=== PATIENT | male | born 1985 | race Caucasian/White ===

== ENCOUNTER 2020-09-01 09:47 | Outpatient (CLI) | payer MEDICAID, SELFPAY ==
--- NOTE | 2020-09-01 09:55 | CT_ITS ---
WS: [id number] CT ABDOMEN AND PELVIS WITH CONTRAST HISTORY: LUQ PAIN TECHNIQUE: Imaging performed of the abdomen and pelvis with IV contrast. Single phase imaging of the abdomen. Coronal and sagittal reformats are submitted. All CT scans at [facility] use at least one of these dose optimization techniques: automated exposure control; mA and/or kV adjustment per patient size (includes targeted exams where dose is matched to clinical indication); or iterativ e reconstruction. IV CONTRAST: Omnipaque 300; 95 mL IV. Oral contrast: Yes. DLP: 1163.71 mGycm COMPARISON: None available. Lower thorax: Lung bases are clear. Heart is normal size. Small hiatal hernia. Liver/biliary system: Normal size with no intrahepatic dilatation. Gallbladder: Normal. No gallstones or wall thickening. No pericholecystic fluid. Pancreas: Normal. Spleen: Spleen is top normal size at 12.9 cm in length. No mass or abnormal enhancement. Adrenal glands: Normal. Right kidney: There are a few hypodensities within the kidney which too small to characterize. No jennifer cification or obstruction. Left kidney: Low-attenuation mass measures 2.6 cm in the lower pole is probably a cyst. No solid mass or obstruction. Aorta: Normal. Lymphadenopathy: There are several small, subcentimeter lymph nodes in the upper abdomen. The largest lymph node near the [place] hepatis measures 10 mm. Free fluid: None. GI tract: Normal appendix. No obstruction of the GI tract. Abdominal wall: Unremarkable abdominal wall. No hernia. Pelvis: Normal. Bones: Unremarkable. CT/CT abdomen pelvis w con* [id number] IMPRESSION: 1. Spleen measures 12.9 cm in length which is top normal size. 2. Central upper abdominal lymph nodes with the largest measuring 10 mm. At th is time no significant adenopathy. 3. Bilateral renal cysts.
[2020-09-01] MEDS: iohexol 300 mg/mL 100 mL Btl IV (11:23)
[2020-09-01] MEDS: iohexol 300 mg/mL 50 mL Btl PO (11:24)
== END 2020-09-01 09:48 | disposition home or self-care (01) ==
LOC: RADWPI 09:52
PROVIDERS: PCP Family Medicine; Visit Provider Family Medicine
DX: R10.12 Left upper quadrant pain (principal); Q61.02 Congenital multiple renal cysts
CPT/HCPCS: 74177; Q9967

== ENCOUNTER 2024-05-21 07:43 | Inpatient (IN) | payer BC, MEDICAID, SELFPAY ==
[2024-05-21] VITALS (16 sets, daily range): BP systolic 141–174; BP diastolic 67–116; PULSE 76–100; RESP 16–25; TEMP 36.4–38; O2SAT 92–100; BMI 26.2
--- NOTE | 2024-05-21 07:58 | CT_ITS ---
WS: [id number] CT ABDOMEN AND PELVIS WITH CONTRAST HISTORY: abd pain, intermittent diarrhea. TECHNIQUE: Imaging performed of the abdomen and pelvis with IV contrast. Single phase imaging of the abdomen. Coronal and sagittal reformats are submitted. All CT scans at [facility] use at [facility] [facility] one of these dose optimization techniques: automated exposure control; mA and/or kV adjustment per patient size (includes targeted exams where dose is matched to clinical indication); or iterative re construction. IV CONTRAST: Omnipaque 350; 100 mL IV. Oral contrast: No DLP: 731.96 mGy.cm COMPARISON: 09/01/2020 Lower thorax: Lung bases are clear. Heart is normal size. Small hiatal hernia. Liver/biliary system: Liver is top normal size with mild fatty sparing along the falciform ligament. No bile duct dilatation. Gallbladder: Normal. No gallstones or wall thickening. No pericholecystic fluid. Pancreas: Normal size pancreas and pancreatic duct. No adjacent inflammation. Spleen: Spleen is top normal size at 13.6 cm in length. Adrenal glands: Normal RIGHT adrenal gland. Very slight thickening of the LEFT adrenal gland. Right kidney: No obstruction. Scattered cortical hypodensities unchanged in size since 2020. Left kidney: Normal size with cortical hypodensities. Largest low-attenuation mass in the lower pole measures 1.6 cm, similar to the prior study from 2020. Probably representing a complex cyst. Aorta: Normal size aorta. Mesenteric arteries are not well evaluated for thrombus or occlusion as the contrast bolus was interrupted. Lymphadenopathy: Small retroperitoneal lymph nodes. No lymphadenopathy. Free fluid: None. GI tract: Stomach is not distended. No small bowel obstruction. Normal appendix. Diffuse moderate con stipation. Developing diverticular abscess in the central pelvis measures 3.3 x 4.8 cm and extends ov er a length of 5.3 cm. Perforation tract site is noted extending through the wall of the sigmoid colo n. This is developing abscess but is not liquefied or encased by a wall at this time. There additiona l diverticula in the sigmoid colon. Marked narrowing of the sigmoid lumen with submucosal edema. Abdominal wall: Fat containing umbilical hernia. Pelvis: No free fluid or adenopathy within the pelvis. Bones: Unremarkable. CT/CT abdomen pelvis w con* [id number] IMPRESSION: 1. Sigmoid perforation with developing diverticular abscess. There is no well- formed abscess at this time. No liquefaction or wall containment. Phlegmonous c ollection measures 3.3 x 4.8 x 5.3 cm. 2. Marked narrowing of the sigmoid lumen with additional scattered diverticula . 3. Normal appendix. Notified Spencer Soriano MD at 05/21/2024 8:41 AM.
--- NOTE | 2024-05-21 07:59 | ED_ITS ---
HPI - Abdominal Pain 2 General: Chief Complaint: Abdominal Pain Stated Complaint: Pain in lower right flank, cnnt eat or drink Time Seen by Provider: 05/21/24 07:48 Source: patient Mode of arrival: ambulatory Limitations: no limitations History of Present Illness: 38-year-old male states that he has been having abdominal pain he is also been having some nausea vomiting has had some slight diarrhea difficulty urinating. He states had decreased appetite as well. States has been going on for 4 to 5 days getting much worse since this morning states he is having worsening pain in his lower abdomen it has been tender to touch as well. Denies any fevers. Associated Symptoms: Reports diarrhea, nausea and vomiting; Denies chills and fever(s) Related Data Allergies Allergy/AdvReac Type Severity Reaction Status Date / Time No Known Allergies Allergy Verified 05/21/24 08:00 Review of Systems 2 Const: Denies: fever(s), chills, body aches or change in appetite ENMT: Denies: throat pain or dental pain Card: Denies: chest pain Resp: Denies: dyspnea GI: Reports: abdominal pain, nausea, vomiting and diarrhea : Reports: difficulty urinating Musc: Denies: neck pain or back pain Skin/Breast: Denies: rash Neuro: Denies: headache(s) Physical Exam 2 Const: COMMON NORMALS: no acute distress, patient oriented x3 and healthy appearing HENMT: COMMON NORMALS: normocephalic and atraumatic HEAD & SCALP: n ormocephalic and atraumatic Neck/C-Spine: COMMON NORMALS: full ROM and supple Chest: COMMONS NORMALS: normal inspection of the chest Resp: COMMON NORMALS: normal respiratory effort, No retractions, No use of accessory muscles and clear to auscultation bilaterally AUSCULTATION: clear to auscultation bilaterally Cardio: COMMON NORMALS: regular rate, regular rhythm and No murmurs present (Cardio) RATE: regular rate RHYTHM: regular rhythm GI: COMMON NORMALS: Normal to inspection, nondistended, normoactive bowel sounds present, Soft to palpation and no masses PALPATION: Yes Soft to palpation and Yes Tenderness to palpation present (GI) Details: RLQ Extremity: COMMON NORMALS: normal to inspection and full ROM Neuro: COMMON NORMALS: patient oriented x3, moves all extremities and no focal motor deficits Psych: COMMON NORMALS: mental status grossly normal, Normal thought process present and cooperative THOUGHT PROCESS: Normal thought process present Skin: COMMON NORMALS: no rashes or lesions noted and no wounds GENERAL SKIN EXAM: no rashes or lesions noted Course 2 Vital Signs: Vital signs: Vital Signs Temperature 98.1 F 05/21/24 07:51 Pulse Rate 88 05/21/24 08:04 Respiratory Rate 16 05/21/24 08:43 Blood Pressure 159/102 05/21/24 08:04 Pulse Oximetry 98 05/21/24 08:04 Oxygen Delivery Me thod Room Air 05/21/24 08:04 MDM - Abdominal Pain Medical Decision Making Patient presents with abdominal pain he does have [place] diverticulitis with a phlegmon of spoke to Dr. Pearce along with hospitalist will admit on IV antibiotics at this point his lactate here is normal blood pressures been normal. Medical Records I reviewed the patient's medical records. Lab Data I reviewed the patient's lab results. 05/21/24 07:55 05/21/24 07:55 Labs/Radiology: Radiology Impressions Abdomen/Pelvis CT 05/21/24 07:58 IMPRESSION: 1. Sigmoid perforation with developing diverticular abscess. There is no well- formed abscess at this time. No liquefaction or wall containment. Phlegmonous collection measures 3.3 x 4.8 x 5.3 cm. 2. Marked narrowing of the sigmoid lumen with additional scattered diverticula. 3. Normal appendix. Notified Spencer Soriano MD at 05/21/2024 8:41 AM. Laboratory Results WBC 22.32 10^3/uL (3.29-11.43) H 05/21/24 07:55 RBC 4.56 10^6/uL (3.85-5.65) 05/21/24 07:55 Hgb 14.60 g/dL (11.27-16.99) 05/21/24 07:55 Hct 40.4 % (37-53) 05/21/24 07:55 MCV 88.6 fl (82-101) 05/21/24 07:55 MCH 32.0 pg (27-33) 05/21/24 07:55 MCHC 36.1 g/dL (30-55) 05/21/24 07:55 RDW 11.9 % (12.1-15.1) L 05/21/24 07:55 Plt Count 309 10^3/cmm (157-399) 05/21/24 07:55 MPV 10.1 fL (7.4-10.4) 05/21/24 07:55 Neut % (Auto) 84.2 % 05/21/24 07:55 Lymph % (Auto) 7.1 % 05/21/24 07:55 [place] % (Auto) 7.8 % 05/21/24 07:55 Eos % (Auto) 0.2 % 05/21/24 07:55 Baso % (Auto) 0.2 % 05/21/24 07:55 Neut # (Auto) 18.80 10^3/uL (1.8-7.7) H 05/21/24 07:55 Lymph # (Auto) 1.6 10^3/uL (0.8-4.8) 05/21/24 07:55 [place] # (Auto) 1.7 10^3/uL (0.2-0.9) H 05/21/24 07:55 Eos # (Auto) 0.1 10^3/uL (0.0-0.8) 05/21/24 07:55 Baso # (Auto) 0.1 10^3/uL (0.0-0.1) 05/21/24 07:55 Nucleated RBC % (auto) 0 % 05/21/24 07:55 Nucleated RBCs # 0.0 /100WBC 05/21/24 07:55 Sodium 137 mmol/L (136-145) 05/21/24 07:55 Potassium 3.6 mmol/L (3.5-5.1) 05/21/24 07:55 Chloride 100 mmol/L (98-107) 05/21/24 07:55 Carbon Dioxide 24 mmol/L (22-29) 05/21/24 07:55 Anion Gap 16.6 (5-19) 05/21/24 07:55 BUN 10 mg/dL (6-20) 05/21/24 07:55 Creatinine 0.7 mg/dL (0.7-1.2) 05/21/24 07:55 GFR Calculation 125.5 mL/min (90-130) 05/21/24 07:55 Glucose 112 mg/dL (65-115) 05/21/24 07:55 Calculated Osmolality 284 mOsm/kg (285-295) L 05/21/24 07:55 Lactic Acid 1.7 mmol/L (0.5-2.2) 05/21/24 07:55 Calcium 8.4 mg/dL (8.5-10.5) L 05/21/24 07:55 Total Bilirubin 1.2 mg/dL (0.15-1.2) 05/21/24 07:55 AST 21 U/L (0-40) 05/21/24 07:55 ALT 40 U/L (0-41) 05/21/24 07:55 Alkaline Phosphatase 70 U/L (40-130) 05/21/24 07:55 Total Protein 7.6 g/dL (6.6-8.7) 05/21/24 07:55 Albumin 4.1 g/dL (3.5-5.2) 05/21/24 07:55 Globulin 3.5 g/dL (1.3-4.6) 05/21/24 07:55 Lipase 16 U/L (13-60) 05/21/24 07:55 Urine Color Yellow (Yellow) 05/21/24 08:14 Urine Appearance Cloudy (CLEAR) A 05/21/24 08:14 Urine pH 8.0 (5-7) A 05/21/24 08:14 Ur Specific [place] 1.019 (1.005-1.030) 05/21/24 08:14 Urine Protein Negative (Negative) 05/21/24 08:14 Urine Glucose (UA) Negative (Normal) 05/21/24 08:14 Urine Ketones 3+ (Negative) H 05/21/24 08:14 Urine Blood Negative (Negative) 05/21/24 08:14 Urine Nitrate Negative (Negative) 05/21/24 08:14 Urine Bilirubin Negative (Negative) 05/21/24 08:14 Urine Urobilinogen 1.0 mg/dL (Negative) 05/21/24 08:14 Ur Leukocyte Esterase Trace (Negative) A 05/21/24 08:14 Urine RBC 0-2 /hpf (0-2) 05/21/24 08:14 Urine WBC 0-5 /hpf (0-5) 05/21/24 08:14 Ur Squamous Epith Cells 0-5 /hpf (0-5) 05/21/24 08:14 Amorphous Sediment Not Reportable 05/21/24 08:14 Urine Bacteria None seen /hpf (NONE) 05/21/24 08:14 Hyaline Casts 0.40 /lpf 05/21/24 08:14 All radiology interpretation(s) finalized by discharge Discharge Plan Discharge Patient Disposition: Admitted As Inpatient Clinical Impression: Diverticulitis Condition: Stable Referrals: Destiny Young MD [Primary Care Provider] - Coding Level of Care Code ED Barrel Inspector for Elba Lowe
[2024-05-21] MEDS: ondansetron 2 mg/ML SDV 2 mL 4 MG IVP (08:03)
[2024-05-21] MEDS: morphine 4 mg/mL SDV 1 mL IVP (08:03)
[2024-05-21 08:13] LABS: Basophils # 0.1 10^3/uL (0.0-0.1); Basophils % 0.2 %; Eosinophils # 0.1 10^3/uL (0.0-0.8); Eosinophils % 0.2 %; Hematocrit 40.4 % (37-53); Lymphocytes # 1.6 10^3/uL (0.8-4.8); Lymphocytes % 7.1 %; Mean Corpuscular HGB Conc 36.1 g/dL (30-55); Mean Corpuscular Volume 88.6 fl (82-101); Mean Platelet Volume 10.1 fL (7.4-10.4); Monocytes # 1.7 10^3/uL (0.2-0.9); Monocytes % 7.8 %; Neutrophils % 84.2 %; Nucleated Red Blood Cells % 0 %; Platelet Count 309 10^3/cmm (157-399); Red Blood Count 4.56 10^6/uL (3.85-5.65); Red Cell Distribution Width 11.9 % (12.1-15.1); White Blood Count 22.32 10^3/uL (3.29-11.43)
[2024-05-21] MEDS: iohexol 350 mg/mL 500 mL Btl (per mL) IV (08:16)
[2024-05-21 08:20] LABS: Bilirubin Urine Negative (Negative); Blood Urine Negative (Negative); Glucose Urine UA Negative (Normal); Ketones Urine 3+ (Negative); Leukocyte Esterase Urine Trace (Negative); Nitrate Urine Negative (Negative); Protein Urine Negative (Negative); Specific Gravity, Urine 1.019 (1.005-1.030); Urine Appearance Cloudy (CLEAR); Urine Color Yellow (Yellow)
[2024-05-21 08:23] LABS: Add Urine Microscopic? YES; Bacteria Urine None Seen /hpf; RBC Urine 0-2 /hpf (0-2); Squamous Epithelial Cell Urine 0-5 /hpf (0-5); WBC Urine 0-5 /hpf (0-5)
[2024-05-21 08:36] LABS: Alanine Aminotransferase 40 U/L (0-41); Albumin Level 4.1 g/dL (3.5-5.2); Alkaline Phosphatase 70 U/L (40-130); Anion Gap 16.6 (5-19); Aspartate Amino Transferase 21 U/L (0-40); Blood Urea Nitrogen 10 mg/dL (6-20); Calcium 8.4 mg/dL (8.5-10.5); Carbon Dioxide 24 mmol/L (22-29); Chloride 100 mmol/L (98-107); Creatinine Clr Calc Pharmacy 163.4781; Globulin 3.5 g/dL (1.3-4.6); Glomerular Filtration Rate 125.5 mL/min (90-130); Glucose 112 mg/dL (65-115); Lipase 16 U/L (13-60); Osmolality Calculated 284 mOsm/kg (285-295); Potassium 3.6 mmol/L (3.5-5.1); Sodium 137 mmol/L (136-145); Total Bilirubin 1.2 mg/dL (0.15-1.2); Total Protein 7.6 g/dL (6.6-8.7)
[2024-05-21] MEDS: sodium chloride 0.9% 1,000 ML 999 ML IV ×2 (08:42→09:04)
[2024-05-21] MEDS: HYDROmorphone 1 mg/mL INJ 1 mL IVP (08:43)
[2024-05-21 08:46] LABS: Lactic Sepsis W/Reflex 1.7 mmol/L (0.5-2.2)
[2024-05-21] MEDS: piperacillin-tazobactam 3.375 GM in sodium chloride 0.9% (plus) 50 ML IV ×2 (09:03→16:56)
--- NOTE | 2024-05-21 09:46 | PC.PHAR ---
Pt also states he uses THC in a syringe. A THC syringe is a plastic or glass device designed to hold THC oil or a combination of THC and CBD oil. It features a chamber filled with THC distillate and a plunger for dosing it out.
--- NOTE | 2024-05-21 09:50 | P.HP_ITS ---
Documented by User: Elvira Alvarez 05/21/24 11:05 Providers/Chief Complaint 2 Admitting Physician: Dr. Tomas Anderson Primary Care Provider: Destiny Young MD Chief Complaint: Pain in lower right flank, cnnt eat or drink History of Present Illness Vickey Kirkland is a 38 y.o. male who presented to the ED with severe diffuse abdominal pain. He states his abdominal pain began about 1 week ago with associated fever. At that time, his abdominal pain was localized more on the lower abdomen. The fever resolved in about 2 days, but the abdominal pain persisted. The pain became diffuse within the last 24 hrs. Describes his current pain as constant and stabbing. Heating pad and warm bath provide very minimal relief. Appetite has been notably decreased. He guesses he's been consuming around 700 cals per day for past week. Does endorse some weight loss. States he has not had a bowel movement in 3+ days, also without passage of flatus. Denies nausea and vomiting. Urination pattern has remained normal, but states appearance is somewhat darker yellow than usual with possible pinkish hue. Review of Systems 2 General: Reports: 10 or more systems reviewed and unremarkable except in HPI and below Const: Reports: fever(s), chills, change in appetite and change in weight Eyes: Denies: change in vision ENMT: Reports: epistaxis Card: Denies: chest pain or palpitations Resp: Denies: dyspnea or wheezing GI: Reports: abdominal pain, diarrhea and change in bowel habits; Denies: nausea, vomiting, hematemesis or hematochezia : Reports: other (Darker urine appearance); Denies: dysuria Musc: Denies: deformity Neuro: Denies: headache(s) or dizziness Psych: Reports: anxiety Medications/Allergies Home Medications Medication Instructions Recorded Confirmed Last Taken Type Ultima C 1 cap PO DAILY 05/21/24 05/21/24 Unknown History bisacodyl 5 mg tablet,delayed 5 mg PO DAILY PRN Constipation 05/21/24 05/21/24 Unknown History release (Dulcolax (bisacodyl)) naproxen sodium 220 mg tablet 220 mg PO BID PRN Pain 05/21/24 05/21/24 Unknown History (Aleve) polyethylene glycol 3350 17 17 g PO DAILY PRN Constipation 05/21/24 05/21/24 Unknown History gram/dose oral powder (Miralax) Allergies Allergy/AdvReac Type Severity Reaction Status Date / Time tree nut Allergy Unknown Verified 05/21/24 10:33 PFSH Acute 2 PFSH: Family History Father Prostate cancer Social History Smoking and tobacco/nicotine status: never used tobacco/nicotine Alcohol intake: never Sexually active: No Do you think of yourself as: Straight/Heterosexual Vitals/I&O/Wt Last Vital Signs Temp 98.1 F 05/21/24 07:51 Pulse 99 05/21/24 09:04 Resp 16 05/21/24 08:43 BP 161/94 05/21/24 09:04 Pulse Ox 100 05/21/24 09:04 O2 Del Method Room Air 05/21/24 08:04 05/20/24 05/21/24 05/21/24 22:59 06:59 14:59 Intake Total 1000 / 1000 Balance 1000 / 1000 Weight last 48 hrs Weight 193 lb Physical Exam 2 Const: GENERAL APPEARANCE: cooperative, well kempt, well developed, in distress and anxious HENMT: COMMON NORMALS: normocephalic, atraumatic and hearing grossly normal bilaterally FACE & SINUS: other (1cm diameter raised circular subepidermal protrusion on mid-forehead) Neck/C-Spine: COMMON NORMALS: supple GENERAL: Yes normal visual inspection Resp: COMMON NORMALS: normal respiratory effort and clear to auscultation bilaterally Cardio: COMMON NORMALS: regular rate, regular rhythm and No murmurs present (Cardio) GI: OTHER: Diffuse tenderness to palpation. Negative rebound tenderness. Soft and non- distended. Extremity: GENERAL: Yes normal exam except as noted Neuro: COMMON NORMALS: patient oriented x3 and moves all extremities S PEECH: speech normal Psych: COMMON NORMALS: mental status grossly normal and cooperative A PPEARANCE: Yes grossly normal Data 05/21/24 07:55 05/21/24 07:55 Other Labs: CBC: Marked leukocytosis with neutrophilic predominance. No anemia. CMP: No electrolyte derangements. Adequate kidney function. LFTs not elevated. Urinalysis: Cloudy. Elevated pH. 3+ ketones. CT Abd/Pel: Radiologist's impression: CT/CT abdomen pelvis w con* [id number] IMPRESSION: 1. Sigmoid perforation with developing diverticular abscess. There is no well- formed abscess at this time. No liquefaction or wall containment. Phlegmonous collection measures 3.3 x 4.8 x 5.3 cm. 2. Marked narrowing of the sigmoid lumen with additional scattered diverticula. 3. Normal appendix. A&P Assessment and plan (1) Diverticulitis: 1 week history of fever and abdominal pain that has recently become diffuse and more severe CBC shows leukocytosis with neutrophilic predominance CT abdomen/pelvis revealed sigmoid perforation with developing diverticular abscess and phlegmonous collection Surgery consulted Started on IV Zosyn Dilaudid for pain management (2) Intra-abdominal abscess: CT revealed developing diverticular abscess Started IV Zosyn Blood cultures ordered Coding Level of Care Code 71798 Diagnoses Diverticulitis K57.92 Intra-abdominal abscess K65.1 Time Spent (min) 57 Documented by User: Tomas Anderson MD 05/21/24 11:11 Providers/Chief Complaint 2 Chief Complaint: Pain in lower right flank, cnnt eat or drink History of Present Illness Vickey Kirkland is a 38 y.o. male who presented to the ED with severe diffuse abdominal pain. He states his abdominal pain began about 1 week ago with associated fever. At that time, his abdominal pain was localized more on the lower abdomen. The fever resolved in about 2 days, but the abdominal pain persisted. The pain became diffuse within the last 24 hrs. Describes his current pain as constant and stabbing. Heating pad and warm bath provide very minimal relief. Appetite has been notably decreased. He guesses he's been consuming around 700 cals per day for past week. Does endorse some weight loss. States he has not had a bowel movement in 3+ days, also without passage of flatus. Denies nausea and vomiting. Urination pattern has remained normal, but states appearance is somewhat darker yellow than usual with possible pinkish hue. No blood in stool. Medications/Allergies Home Medications Medication Instructions Recorded Confirmed Last Taken Type Ultima C 1 cap PO DAILY 05/21/24 05/21/24 Unknown History bisacodyl 5 mg tablet,delayed 5 mg PO DAILY PRN Constipation 05/21/24 05/21/24 Unknown History release (Dulcolax (bisacodyl)) naproxen sodium 220 mg tablet 220 mg PO BID PRN Pain 05/21/24 05/21/24 Unknown History (Aleve) polyethylene glycol 3350 17 17 g PO DAILY PRN Constipation 05/21/24 05/21/24 Unknown History gram/dose oral powder (Miralax) Allergies Allergy/AdvReac Type Severity Reaction Status Date / Time tree nut Allergy Unknown Verified 05/21/24 10:33 PFSH Acute 2 PFSH: Family History Father Prostate cancer Social History Smoking and tobacco/nicotine status: never used tobacco/nicotine Alcohol intake: never Sexually active: No Do you think of yourself as: Straight/Heterosexual Data 05/21/24 07:55 05/21/24 07:55 CT Abd/Pel: Radiologist's impression: CT/CT abdomen pelvis w con* [id number] IMPRESSION: 1. Sigmoid perforation with developing diverticular abscess. There is no well- formed abscess at this time. No liquefaction or wall containment. Phlegmonous collection measures 3.3 x 4.8 x 5.3 cm. 2. Marked narrowing of the sigmoid lumen with additional scattered diverticula. 3. Normal appendix. I reviewed CT as well. A&P Assessment and plan (1) Diverticulitis: 1 week history of fever and abdominal pain that has recently become diffuse and more severe CBC shows leukocytosis with neutrophilic predominance CT abdomen/pelvis revealed sigmoid perforation with developing diverticular abscess and phlegmonous collection Surgery consulted Started on IV Zosyn Dilaudid for pain management Blood culture obtained as below Likely perform repeat CT, in 48 hours, , sooner if clinically worsens. (2) Intra-abdominal abscess: Plan Full code Lovenox for DVT prophylaxis Attestations 2 Medical Necessity Statement*: Will need greater than 2 midnight stay for evaluation and treatment of diverticulitis, with systemic illness and abscess formation with need for close follow-up. Diagnoses Diverticulitis K57.92 Intra-abdominal abscess K65.1 Time Spent (min) 57
[2024-05-21] MEDS: HYDROmorphone 1 mg/mL INJ 1 mL 0.5 MG IVP ×7 (10:14→23:41)
[2024-05-21] MEDS: LORazepam 2 mg/mL INJ 1 mL 1 MG IVP (10:15)
[2024-05-21] MEDS: enoxaparin 40 mg/0.4 mL Syringe SUBCUT (10:15)
[2024-05-21] MEDS: pantoprazole 40 mg SDV IVP (10:15)
--- NOTE | 2024-05-21 10:16 | PC.NURSE ---
NS @125mL/hr ordered @1000 delayed d/t second NS bolus currently infusing
[2024-05-21] MEDS: sodium chloride 0.9% 1,000 ML 125 ML IV ×2 (11:21→16:56)
--- NOTE | 2024-05-21 11:40 | PC.NURSE ---
This nurse received report from HEIDE Che in ER at 1140.
[2024-05-22] VITALS (17 sets, daily range): BP systolic 134–176; BP diastolic 72–90; PULSE 82–109; RESP 16–20; TEMP 36.9–37.8; O2SAT 96–99
[2024-05-22] MEDS: sodium chloride 0.9% 1,000 ML 125 ML IV ×2 (00:59→08:53)
[2024-05-22] MEDS: morphine 4 mg/mL SDV 1 mL 2 MG IVP ×11 (01:00→21:25)
[2024-05-22] MEDS: piperacillin-tazobactam 3.375 GM in sodium chloride 0.9% (plus) 50 ML IV ×3 (01:00→16:14)
[2024-05-22 03:05] LABS: Basophils % 0.2 %; Eosinophils # 0.1 10^3/uL (0.0-0.8); Eosinophils % 0.7 %; Hematocrit 35.4 % (37-53); Lymphocytes # 1.5 10^3/uL (0.8-4.8); Lymphocytes % 7.8 %; Mean Corpuscular HGB Conc 33.6 g/dL (30-55); Mean Corpuscular Hemoglobin 30.7 pg (27-33); Mean Corpuscular Volume 91.2 fl (82-101); Mean Platelet Volume 10.3 fL (7.4-10.4); Monocytes # 2.1 10^3/uL (0.2-0.9); Monocytes % 10.7 %; Neutrophils # 15.69 10^3/uL (1.8-7.7); Neutrophils % 79.6 %; Nucleated Red Blood Cells % 0 %; Platelet Count 247 10^3/cmm (157-399); Red Blood Count 3.88 10^6/uL (3.85-5.65)
[2024-05-22 03:26] LABS: Alanine Aminotransferase 26 U/L (0-41); Albumin Level 3.4 g/dL (3.5-5.2); Alkaline Phosphatase 59 U/L (40-130); Anion Gap 15.6 (5-19); Aspartate Amino Transferase 16 U/L (0-40); Blood Urea Nitrogen 6 mg/dL (6-20); Calcium 8.2 mg/dL (8.5-10.5); Carbon Dioxide 23 mmol/L (22-29); Chloride 102 mmol/L (98-107); Creatinine Clr Calc Pharmacy 204.6723; Globulin 3.4 g/dL (1.3-4.6); Glucose 89 mg/dL (65-115); Magnesium 1.8 mg/dL (1.7-2.3); Osmolality Calculated 281 mOsm/kg (285-295); Potassium 3.6 mmol/L (3.5-5.1); Sodium 137 mmol/L (136-145); Total Bilirubin 1.4 mg/dL (0.15-1.2); Total Protein 6.8 g/dL (6.6-8.7)
[2024-05-22] MEDS: HYDROmorphone 1 mg/mL INJ 1 mL 0.5 MG IVP (04:03)
[2024-05-22] MEDS: enoxaparin 40 mg/0.4 mL Syringe SUBCUT (08:52)
[2024-05-22] MEDS: pantoprazole 40 mg SDV IVP (08:52)
[2024-05-22 09:19] LABS: Glucose Point of Care 94 mg/dL (70-110)
--- NOTE | 2024-05-22 09:30 | PC.NURSE ---
Addendum entered by Mónica Morales LPN 05/22/24 09:39: New orders placed for KUB and Chest Xray per Dr. Meyer Original Note: Upon entering patients room this morning, this nurse found patient doubled over in pain on the side of the bed. Pt kept stating I need help and Something's wrong Pt has recieved IV morphine x2 this morning, sweat through his linens and was running a temp of 100.1. BS is 94. BP is slightly elevated at 145/83, otherwise, all other vitals are normal. Dr. Meyer notified at 907am.
--- NOTE | 2024-05-22 09:38 | XRR_ITS ---
PROCEDURE INFORMATION: Exam: XR Chest Exam date and time: 05/22/2024 9:59 AM Age: 38 years old Clinical indication: Pain; Chest pressure TECHNIQUE: Imaging protocol: Radiologic exam of the chest. Views: 1 view. Total images: 1 COMPARISON: CR XR chest 2V* [id number] 07/11/2020 3:24 PM FINDINGS: Lungs: Clear. Pleural spaces: No pleural effusion identified. Heart/Mediastinum: Cardiomediastinal silhouette is stable.. Bones/joints: No acute osseous abnormality identified. XR/XR chest 1V portable [id number] IMPRESSION: 1. No acute cardiopulmonary abnormality identified.
--- NOTE | 2024-05-22 09:38 | XRR_ITS ---
PROCEDURE INFORMATION: Exam: XR Abdomen Exam date and time: 05/22/2024 9:59 AM Age: 38 years old Clinical indication: Abdominal pain TECHNIQUE: Imaging protocol: Radiologic exam of the abdomen. Views: Frontal supine view of the abdomen. 1 View. Total images: 1 COMPARISON: CT abdomen pelvis w con* [id number] 05/21/2024 8:15 AM FINDINGS: Gastrointestinal tract: Small amount of small bowel gas noted. No gaseous distension of bowel or evidence of excessive retained stool. Organs: Borderline splenic enlargement. Bones/joints: No acute abnormality identified. Soft tissues: No abnormal soft tissue calcifications are observed. XR/XR KUB portable [id number] IMPRESSION: 1. Nonspecific but nonobstructive appearing bowel gas pattern. 2. Again noted, borderline splenic enlargement. .
--- NOTE | 2024-05-22 14:24 | P.CONIM_ITS ---
Providers/Reason For Consult 2 Consulting Physician/Specialty*: Dr. Iain Pearce, /General Surgery Reason for Consult*: Perforated diverticulitis Attending Physician: Michael Meyer MD Primary Care Provider: Destiny Young MD History of Present Illness History of Present Illness Vickey Kirkland is a 38 year old male who presented to the hospital with a 4-day history of diffuse abdominal pain. The worst pain is in his suprapubic region and radiates to his back. He does have nausea but denies any emesis. Denies any diarrhea, constipation, hematochezia and/or melena. He has never had a colonoscopy and denies any family history of colon cancer. He is never had surgery on his abdomen. A CT of the abdomen pelvis shows diverticulitis of the distal sigmoid colon complicated by contained perforation. There is no formed abscess yet. Review of Systems 2 General: Reports: 10 or more systems reviewed and unremarkable except in HPI and below Medications/Allergies Home Medications Medication Instructions Recorded Confirmed Last Taken Type Ultima C 1 cap PO DAILY 05/21/24 05/21/24 Unknown History bisacodyl 5 mg tablet,delayed 5 mg PO DAILY PRN Constipation 05/21/24 05/21/24 Unknown History release (Dulcolax (bisacodyl)) naproxen sodium 220 mg tablet 220 mg PO BID PRN Pain 05/21/24 05/21/24 Unknown History (Aleve) polyethylene glycol 3350 17 17 g PO DAILY PRN Constipation 05/21/24 05/21/24 Unknown History gram/dose oral powder (Miralax) Allergies Allergy/AdvReac Type Severity Reaction Status Date / Time tree nut Allergy Unknown Verified 05/21/24 10:33 Current Medications Generic Name Dose Route Start Last Admin Trade Name Freq PRN Reason Stop Dose Admin Enoxaparin Sodium 40 mg 05/21/24 10:00 05/22/24 08:52 Enoxaparin 40 Mg/0.4 Ml Syringe SUBCUT 40 mg Q24H VALENTE Administration Hydromorphone HCl 0.5 mg 05/21/24 11:37 05/22/24 04:03 Hydromorphone 1 Mg/Ml Inj 1 Ml IVP 0.5 mg Q2H PRN Administration PAIN Sodium Chloride 1,000 mls @ 125 mls/hr 05/21/24 10:00 05/22/24 08:53 Sodium Chloride 0.9% IV 125 mls/hr .Q8H VALENTE Administration Piperacillin Sod/Tazobactam 50 mls @ 12.5 mls/hr 05/21/24 17:00 05/22/24 13:04 Sod 3.375 gm/ Sodium Chloride IV Infused Q8H VALENTE Infusion Morphine Sulfate 2 mg 05/21/24 23:42 05/22/24 14:10 Morphine 4 Mg/Ml Sdv 1 Ml IVP 2 mg Q1H PRN Administration SEVERE PAIN Pantoprazole Sodium 40 mg 05/21/24 10:00 05/22/24 08:52 Pantoprazole 40 Mg Sdv IVP 40 mg Q24H VALENTE Administration PFSH Acute 2 PFSH: Family History Father Prostate cancer Social History Smoking and tobacco/nicotine status: never used tobacco/nicotine Alcohol intake: never Sexually active: No Do you think of yourself as: Straight/Heterosexual Vitals/I&O/Wt Last Vital Signs Temp 98.6 F 05/22/24 11:49 Pulse 87 05/22/24 11:49 Resp 18 05/22/24 14:10 BP 159/86 05/22/24 11:49 Pulse Ox 99 05/22/24 14:10 O2 Del Method Room Air 05/22/24 11:49 05/21/24 05/22/24 05/22/24 22:59 06:59 14:59 Intake Total 50 / 3100 1050 / 4150 1037.5 / 1037.5 Output Total 700 / 1025 600 / 1625 Balance -650 / 2075 450 / 2525 1037.5 / 1037.5 Weight last 48 hrs Weight 200 lb 9.6 oz Weight 193 lb Physical Exam 2 Narrative: General : Patient is well developed , no acute distress, oriented x3 Head : Normal cephalic, a-traumatic. Ears : Pinnae and external canal are normal. Hearing is normal. Eyes : PERRLA, Sclera and injection are normal. No conjunctival discharge. Nose : Mucous membranes are without erythema. Throat : buccal mucosa is normal, gums are without significant recession or hypertrophy. Lungs : Equal chest rise bilaterally, no use of accessory muscles, trachea is midline. Cor : Rate and rhythm are normal. Abdomen : Soft, mild distention, tender to palpation suprapubically without guarding or rebound Extremities : No edema, no cyanosis or clubbing, dorsalis pedis pulses are present bilaterally, non-tender to palpation of calves. Upper extremities are normal bilaterally. Back : non-tender to palpation, no CVA tenderness. Neuro : CN II - XII intact, Upper and lower extremities have equal and full strength Data 05/22/24 02:20 05/22/24 02:20 Micro: Microbiology 05/21/24 11:12 Blood Culture - Preliminary Blood NEGATIVE TO DATE 05/21/24 11:10 Blood Culture - Preliminary Blood NEGATIVE TO DATE A&P Assessment and plan (1) Diverticulitis of large intestine with complication: Plan Zosyn IV fluids May have sips and chips otherwise n.p.o. If he worsens he will need an exploratory laparotomy with Perez's procedure If he continues to improve he will require colonoscopy in 4 to 6 weeks and sigmoidectomy is recommended Plans to repeat CT on Friday or Friday to evaluate if there is a drainable abscess Medical management per hospitalist Coding Level of Care Code 47884 Diagnoses Diverticulitis of large intestine with complication K57.32
--- NOTE | 2024-05-22 14:31 | P.PN_ITS ---
Subjective 2 Subjective: Patient was seen this morning, he complains of severe abdominal pain, did have a small bowel movement this morning, does report chills during the night, no nausea, no vomiting patient has severe intractable pain, he tells me that Dilaudid does not help with his pain, only the morphine does, he is on morphine 2 mg every hour, Vitals/I&O/Wt Last Vital Signs Temp 98.6 F 05/22/24 11:49 Pulse 87 05/22/24 11:49 Resp 18 05/22/24 14:10 BP 159/86 05/22/24 11:49 Pulse Ox 99 05/22/24 14:10 O2 Del Method Room Air 05/22/24 11:49 05/21/24 05/22/24 05/22/24 22:59 06:59 14:59 Intake Total 50 / 3100 1050 / 4150 1037.5 / 1037.5 Output Total 700 / 1025 600 / 1625 Balance -650 / 2075 450 / 2525 1037.5 / 1037.5 Weight last 48 hrs Weight 90.991 kg Weight 87.543 kg Physical Exam 2 Const: COMMON NORMALS: no acute distress and patient oriented x3 Resp: COMMON NORMALS: normal respiratory effort, No retractions, No use of accessory muscles and clear to auscultation bilaterally AUSCULTATION: clear to auscultation bilaterally Cardio: COMMON NORMALS: regular rate, regular rhythm, S1 normal heart sound present and S2 normal heart sound present RATE: regular rate RHYTHM: r egular rhythm HEART SOUNDS: S1 normal heart sound present and S2 normal heart sound present GI: OTHER: Abdomen is soft, slightly distended, good bowel sounds, no guarding, no rebound, rigidity Extremity: COMMON NORMALS: no calf tenderness and no pedal edema Neuro: COMMON NORMALS: patient oriented x3 Psych: COMMON NORMALS: mental status grossly normal Data 05/22/24 02:20 05/22/24 02:20 Micro: Microbiology 05/21/24 11:12 Blood Culture - Preliminary Blood NEGATIVE TO DATE 05/21/24 11:10 Blood Culture - Preliminary Blood NEGATIVE TO DATE A&P Assessment and plan (1) Diverticulitis: 1 week history of fever and abdominal pain that has recently become diffuse and more severe CBC shows leukocytosis with neutrophilic predominance CT/CT abdomen pelvis w con* [id number] IMPRESSION: 1. Sigmoid perforation with developing diverticular abscess. There is no well- formed abscess at this time. No liquefaction or wall containment. Phlegmonous collection measures 3.3 x 4.8 x 5.3 cm. 2. Marked narrowing of the sigmoid lumen with additional scattered diverticula. 3. Normal appendix. Plan Serial abdominal exams Started on IV Zosyn Dilaudid for pain management Blood culture obtained as below Likely perform repeat CT scan -Due to intractable pain, patient is on morphine 2 mg IV every hour (2) Intra-abdominal abscess: CT revealed developing diverticular abscess Started IV Zosyn Blood cultures ordered Plan Full code Lovenox for DVT prophylaxis Spoke to general surgery, spoke to patient, spoke to nursing staff, reviewed prior hospitalist notes Attestations 2 Medical Necessity Statement*: Patient requires hospitalization for perforated diverticulitis with intra- abdominal abscess Diagnoses Diverticulitis K57.92 Intra-abdominal abscess K65.1
[2024-05-22] MEDS: sodium chloride 0.9% 1,000 ML 150 ML IV ×2 (16:14→22:27)
--- NOTE | 2024-05-22 18:26 | PC.NURSE ---
While passing 1700 meds, this nurse inquired about patients pain. Pt stated that he was at about a 5, but did not want any pain medicine at this time. This nurse told him to let me know if he started feeling like he needed anything. At 181, this nurse was notified by CB Pearson that pt was requesting pain medicine. This pt pulled IVP morphine and immediately took it in patients room. Pt began yelling at this nurse stating that he was fucking dying and that he was supposed to get pain medication 1.5 hours ago. I informed him that I had inquired about his pain around 1700 in which he declined pain medicine, but if he had requested it from someone else other than me, I was not notified of this. Pt began yelling profanity at me stating to Get the fuck out and fucking leave He also said that he had called a hospital in [place] to leave here and there was about to be a lawsuit because the doctor said he could have pain medicine every hour. This nurse informed pt that, yes, he can have Morphine every hour, however, it is on an as needed basis, it is not scheduled. If pt was needing pain medicine in between hourly rounding, he would need to hit his call light to request it. Pt continued yelling profanity and this nurse informed him she was leaving the room after administering IVP Morphine.
[2024-05-22] MEDS: ondansetron 2 mg/ML SDV 2 mL 4 MG IVP (21:26)
[2024-05-22] MEDS: ALPRAZolam 0.5 mg Tablet PO (21:26)
[2024-05-23] VITALS (13 sets, daily range): BP systolic 151–181; BP diastolic 83–96; PULSE 85–100; RESP 16–20; TEMP 36.8–37.5; O2SAT 95–98; BMI 26.4
[2024-05-23] MEDS: morphine 4 mg/mL SDV 1 mL 2 MG IVP ×11 (00:20→23:20)
[2024-05-23] MEDS: piperacillin-tazobactam 3.375 GM in sodium chloride 0.9% (plus) 50 ML IV ×3 (00:20→17:05)
[2024-05-23] MEDS: metoclopramide 5 mg/mL SDV 2 mL IVP ×4 (02:56→18:49)
[2024-05-23] MEDS: ondansetron 2 mg/ML SDV 2 mL 4 MG IVP ×2 (03:31→17:50)
[2024-05-23 04:02] LABS: Basophils % 0.2 %; Eosinophils # 0.2 10^3/uL (0.0-0.8); Eosinophils % 1.1 %; Hematocrit 33.7 % (37-53); Lymphocytes # 1.3 10^3/uL (0.8-4.8); Lymphocytes % 7.5 %; Mean Corpuscular HGB Conc 34.4 g/dL (30-55); Mean Corpuscular Hemoglobin 31.8 pg (27-33); Mean Corpuscular Volume 92.3 fl (82-101); Monocytes # 2.2 10^3/uL (0.2-0.9); Monocytes % 12.4 %; Neutrophils % 77.7 %; Nucleated Red Blood Cells % 0 %; Platelet Count 243 10^3/cmm (157-399); Red Blood Count 3.65 10^6/uL (3.85-5.65); Red Cell Distribution Width 11.8 % (12.1-15.1); White Blood Count 17.88 10^3/uL (3.29-11.43)
[2024-05-23 04:24] LABS: Alanine Aminotransferase 22 U/L (0-41); Albumin Level 3.4 g/dL (3.5-5.2); Alkaline Phosphatase 107 U/L (40-130); Anion Gap 18.4 (5-19); Aspartate Amino Transferase 16 U/L (0-40); Blood Urea Nitrogen 6 mg/dL (6-20); Carbon Dioxide 21 mmol/L (22-29); Chloride 100 mmol/L (98-107); Creatinine Clr Calc Pharmacy 197.1754; Globulin 3.2 g/dL (1.3-4.6); Glucose 98 mg/dL (65-115); Magnesium 1.9 mg/dL (1.7-2.3); Osmolality Calculated 280 mOsm/kg (285-295); Phosphorus 1.4 mg/dL (2.5-4.5); Potassium 3.4 mmol/L (3.5-5.1); Sodium 136 mmol/L (136-145); Total Bilirubin 1.2 mg/dL (0.15-1.2); Total Protein 6.6 g/dL (6.6-8.7)
[2024-05-23] MEDS: sodium chloride 0.9% 1,000 ML 150 ML IV ×4 (05:21→19:42)
[2024-05-23] MEDS: enoxaparin 40 mg/0.4 mL Syringe SUBCUT (09:32)
[2024-05-23] MEDS: potassium phosphate (mEq K) 40 MEQ in sodium chloride 0.9% (100 ml) 100 ML 27.25 MEQ IV (09:32)
[2024-05-23] MEDS: pantoprazole 40 mg SDV IVP (09:33)
[2024-05-23] MEDS: morphine ER (12 HR) 15 mg Tablet PO ×2 (11:52→17:04)
--- NOTE | 2024-05-23 11:54 | P.PN_ITS ---
Subjective 2 Subjective: Patient seen and examined. Pain much improved. Small bowel movement Vitals/I&O/Wt Last Vital Signs Temp 98.3 F 05/23/24 11:46 Pulse 96 05/23/24 11:46 Resp 17 05/23/24 11:46 BP 161/85 05/23/24 11:46 Pulse Ox 95 05/23/24 11:46 O2 Del Method Room Air 05/23/24 11:46 05/22/24 05/23/24 05/23/24 22:59 06:59 14:59 Intake Total 1901.25 / 2938.75 1050 / 3988.75 977.5 / 977.5 Output Total 700 / 700 500 / 1200 Balance 1201.25 / 2238.75 550 / 2788.75 977.5 / 977.5 Weight last 48 hrs Weight 196 lb 8 oz Weight 200 lb 9.6 oz Weight 200 lb 9.6 oz Physical Exam 2 Narrative: General: No acute distress, awake alert and oriented x 3 Abdomen: Soft, nondistended, mild suprapubic tenderness, no guarding or rebound Data 05/23/24 02:33 05/23/24 02:33 Micro: Microbiology 05/21/24 11:12 Blood Culture - Preliminary Blood NEGATIVE TO DATE 05/21/24 11:10 Blood Culture - Preliminary Blood NEGATIVE TO DATE A&P Assessment and plan (1) Diverticulitis of large intestine with complication: Plan Zosyn IV fluids Clear liquid diet If he worsens he will need an exploratory laparotomy with Perez's procedure If he continues to improve he will require colonoscopy in 4 to 6 weeks and sigmoidectomy is recommended Plans to repeat CT on Friday to evaluate if there is a drainable abscess Medical management per hospitalist Attestations 2 Medical Necessity Statement*: Per primary Coding Level of Care Code 29151 Diagnoses Diverticulitis of large intestine with complication K57.32
--- NOTE | 2024-05-23 13:06 | P.PN_ITS ---
Subjective 2 Subjective: Patient was seen this morning, he continues to have severe pain, is using morphine every hour due to severe pain, nausea, we discussed starting him on a long-acting form of morphine to control his baseline level of pain, to hopefully decrease his use of as needed morphine, he is agreeable, will add on more nausea medications, he denies any fevers, no chills, he feels like he is going to have a bowel movement soon, Vitals/I&O/Wt Last Vital Signs Temp 98.3 F 05/23/24 11:46 Pulse 96 05/23/24 11:46 Resp 17 05/23/24 11:46 BP 161/85 05/23/24 11:46 Pulse Ox 95 05/23/24 11:46 O2 Del Method Room Air 05/23/24 11:46 05/22/24 05/23/24 05/23/24 22:59 06:59 14:59 Intake Total 1901.25 / 2938.75 1050 / 3988.75 1507.5 / 1507.5 Output Total 700 / 700 500 / 1200 Balance 1201.25 / 2238.75 550 / 2788.75 1507.5 / 1507.5 Weight last 48 hrs Weight 89.131 kg Weight 90.991 kg Weight 90.991 kg Physical Exam 2 Const: COMMON NORMALS: no acute distress and patient oriented x3 Resp: COMMON NORMALS: normal respiratory effort, No retractions, No use of accessory muscles and clear to auscultation bilaterally AUSCULTATION: clear to auscultation bilaterally Cardio: COMMON NORMALS: regular rate, regular rhythm, S1 normal heart sound present and S2 normal heart sound present RATE: regular rate RHYTHM: r egular rhythm HEART SOUNDS: S1 normal heart sound present and S2 normal heart sound present GI: OTHER: Abdomen is soft, slightly distended, good bowel sounds in all 4 quadrants, no guarding, no rebound, rigidity, diffuse tenderness Extremity: COMMON NORMALS: no pedal edema Neuro: COMMON NORMALS: patient oriented x3 Psych: COMMON NORMALS: mental status grossly normal Data 05/23/24 02:33 05/23/24 02:33 Micro: Microbiology 05/21/24 11:12 Blood Culture - Preliminary Blood NEGATIVE TO DATE 05/21/24 11:10 Blood Culture - Preliminary Blood NEGATIVE TO DATE A&P Assessment and plan (1) Diverticulitis: 1 week history of fever and abdominal pain that has recently become diffuse and more severe CBC shows leukocytosis with neutrophilic predominance CT/CT abdomen pelvis w con* [id number] IMPRESSION: 1. Sigmoid perforation with developing diverticular abscess. There is no well- formed abscess at this time. No liquefaction or wall containment. Phlegmonous collection measures 3.3 x 4.8 x 5.3 cm. 2. Marked narrowing of the sigmoid lumen with additional scattered diverticula. 3. Normal appendix. Plan Serial abdominal exams Started on IV Zosyn Due to intractable pain, added morphine 15 mg p.o. twice daily, space out morphine 2 mg IV push every 12 hours as needed Blood culture obtained as below Likely perform repeat CT scan on Friday (2) Intra-abdominal abscess: CT revealed developing diverticular abscess Started IV Zosyn Blood cultures ordered Plan Full code Lovenox for DVT prophylaxis Spoke to general surgery, spoke to patient, spoke to nursing staff, reviewed prior hospitalist notes Attestations 2 Medical Necessity Statement*: Patient requires hospitalization due to perforated diverticulitis Diagnoses Diverticulitis K57.92 Intra-abdominal abscess K65.1
--- NOTE | 2024-05-23 18:33 | PC.NURSE ---
Pt has multiple episodes of nausea/dry-heaving. Medication given. Downgraded from clear liquid to NPO. Notified Dr. Pearce.
[2024-05-23] MEDS: promethazine 25 mg/mL SDV 1 mL 12.5 MG IM (18:49)
--- NOTE | 2024-05-23 18:51 | PC.NURSE ---
Pt has episode of emesis and throws up Morphine ER tablet. Epitaxis also noted during emesis episode. Reglan and Phenergan given per order. Notified Dr. Meyer of emesis and vomiting Morphine tablet. One time dose of IV Morphine to replace entered.
[2024-05-24] VITALS (11 sets, daily range): BP systolic 138–190; BP diastolic 77–101; PULSE 77–111; RESP 16–18; TEMP 37.1–38; O2SAT 92–99
[2024-05-24] MEDS: morphine 4 mg/mL SDV 1 mL 2 MG IVP ×5 (01:04→22:17)
[2024-05-24] MEDS: piperacillin-tazobactam 3.375 GM in sodium chloride 0.9% (plus) 50 ML IV ×3 (01:04→16:57)
[2024-05-24] MEDS: sodium chloride 0.9% 1,000 ML 150 ML IV ×2 (03:04→16:58)
[2024-05-24] MEDS: metoclopramide 5 mg/mL SDV 2 mL IVP (04:41)
[2024-05-24 05:45] LABS: Alanine Aminotransferase 23 U/L (0-41); Albumin Level 3.3 g/dL (3.5-5.2); Alkaline Phosphatase 60 U/L (40-130); Anion Gap 16.4 (5-19); Aspartate Amino Transferase 23 U/L (0-40); Blood Urea Nitrogen 4 mg/dL (6-20); C Reactive Protein 163.2 mg/L (0.0-4.9); Calcium 8.1 mg/dL (8.5-10.5); Carbon Dioxide 24 mmol/L (22-29); Chloride 100 mmol/L (98-107); Creatinine Clr Calc Pharmacy 234.5231; Globulin 2.8 g/dL (1.3-4.6); Glomerular Filtration Rate 185.1 mL/min (90-130); Glucose 117 mg/dL (65-115); Magnesium 1.9 mg/dL (1.7-2.3); Osmolality Calculated 282 mOsm/kg (285-295); Phosphorus 1.7 mg/dL (2.5-4.5); Potassium 3.4 mmol/L (3.5-5.1); Sodium 137 mmol/L (136-145); Total Bilirubin 0.9 mg/dL (0.15-1.2); Total Protein 6.1 g/dL (6.6-8.7)
[2024-05-24 05:57] LABS: Basophils % 0.2 %; Eosinophils # 0.1 10^3/uL (0.0-0.8); Eosinophils % 0.7 %; Hematocrit 44.9 % (37-53); Lymphocytes # 1.2 10^3/uL (0.8-4.8); Lymphocytes % 6.5 %; Mean Corpuscular HGB Conc 34.7 g/dL (30-55); Mean Corpuscular Hemoglobin 31.7 pg (27-33); Mean Corpuscular Volume 91.3 fl (82-101); Monocytes % 11.2 %; Neutrophils # 14.39 10^3/uL (1.8-7.7); Neutrophils % 80.6 %; Nucleated Red Blood Cells % 0 %; Platelet Count 196 10^3/cmm (157-399); Red Blood Count 4.92 10^6/uL (3.85-5.65); White Blood Count 17.87 10^3/uL (3.29-11.43)
[2024-05-24] MEDS: enoxaparin 40 mg/0.4 mL Syringe SUBCUT (08:29)
[2024-05-24] MEDS: pantoprazole 40 mg SDV IVP (08:29)
[2024-05-24] MEDS: morphine ER (12 HR) 15 mg Tablet PO ×2 (08:30→16:58)
[2024-05-24] MEDS: promethazine 25 mg/mL SDV 1 mL 12.5 MG IM (08:30)
--- NOTE | 2024-05-24 08:40 | CT_ITS ---
WS: [id number] CT ABDOMEN PELVIS TECHNIQUE: Contrast-enhanced CT of the abdomen and pelvis with coronal and sagittal reformatted image s. CLINICAL INFORMATION: perforated diverticulitis COMPARISON: None. DLP: 706.[address] scans at [facility] use at least one of these dose optimization techniques: automated e xposure control; mA and/or kV adjustment per patient size (includes targeted exams where dose is matc hed to clinical indication); or iterative reconstruction. FINDINGS: Again seen are findings of perforated acute diverticulitis. Previously described air-fluid collection in the pelvis with air-fluid level today measures 6.7 x 6.4 x 8.6 cm AP by transverse by craniocauda l. Associated induration with a small amount of free fluid in the pelvis. Persistent inflammatory blue nges involving the sigmoid colon. Diffuse fatty infiltration of the liver. Mild hepatomegaly. Normal spleen. Small esophageal hiatal he rnia. Lung bases are well aerated. Adrenal glands are normal. No hydronephrosis in either kidney. Sma ll bilateral renal cysts. Normal pancreas. Celiac and SMA are patent. Normal caliber abdominal aorta. Normal gallbladder. Normal portal vein and splenic vein. Normal appendix in the RIGHT lower quadrant . Normal caliber abdominal aorta. Tiny fat-containing umbilical hernia. CT/CT abdomen pelvis w con* [id number] IMPRESSION: 1. Again seen are findings of perforated diverticulitis with poorly formed flu id collection/abscess measuring 6.4 x 6.7 x 8.5 cm with a small amount of inter nal fluid and mostly air with air-fluid level. Small amount of associated free fluid in the pelvis. 2. No hydronephrosis in either kidney. 3. Diffuse fatty infiltration of the liver.
--- NOTE | 2024-05-24 09:13 | PC.CHAP ---
Pastoral Care Encounter/Spiritual Assessment Type of Contact [] Declined small arms artillery repairer visit [] Patient/Family/Request visit [] Outpatient visit [] Follow-up visit [] Physician referral [] Code/Alert [x] Routine visit [] Staff referral [] Actively dying [] Patient sleeping [] Family support [] [x] Out of room [] Palliative care [] [] Receiving care in room [] Pre-surgical visit [] Trauma [] Long length of stay [] ICU visit [] Other: Relational/Emotional Strength [] Patient feels connected with others/family/visitors/staff [] Distress [] Loneliness/isolation [] Abandonment Spirituality of Patient [] Person of [place] [] Attends Orthodox of their [place] [] Believes in Prayer [] Reads Bible or Mormon materials [] There are Spiritual issues to be addressed Tool Technician Interventions [] Prayer [] Active listening [] Non-anxious presence [] Spiritual/emotional support [] Crisis/trauma care [] Spiritual counseling [] Bereavement support [] Provided bereavement packet [] Provided Bible/devotional materials [] Provided toy/stuffed animal, coloring book to patient or family member [] Provided Communion [] Anointing/[place] [] Salvation [] Completed spiritual assessment [] Other: Impact on Illness or Injury [] Angry [] Fearful [] Anxious [] Often cries [] Exhaustion [] Unable to work [] Unable to attend nondenominational [] Unable to walk/stand [] Unable to read [] Unable to drive [] Unable to eat/drink [] Unable to sleep [] Unable to be with family [] Patient intubated [] Other: Summary Time spent with patient
[2024-05-24] MEDS: iohexol 350 mg/mL 500 mL Btl (per mL) IV (09:20)
[2024-05-24] MEDS: potassium phosphate (mEq K) 40 MEQ in sodium chloride 0.9% (100 ml) 100 ML 27.25 MEQ IV (10:37)
--- NOTE | 2024-05-24 12:30 | P.PN_ITS ---
Subjective 2 Subjective: Patient seen and examined. Still reporting significant abdominal pain. He was made n.p.o. again yesterday due to pain and nausea. He reports he feels somewhat better this morning. Reports 2 bowel movements that were nonbloody Vitals/I&O/Wt Last Vital Signs Temp 99.5 F 05/25/24 04:00 Pulse 86 05/25/24 04:00 Resp 19 H 05/25/24 04:00 BP 161/96 05/25/24 04:00 Pulse Ox 96 05/25/24 04:00 O2 Del Method Room Air 05/25/24 04:00 05/24/24 05/25/24 05/25/24 22:59 06:59 14:59 Intake Total 1499.0909 / 2549.0909 430 / 2979.0909 Output Total 400 / 750 Balance 1099.0909 / 1799.0909 430 / 2229.0909 Weight last 48 hrs Weight 195 lb 9.6 oz Weight 195 lb 9.6 oz Physical Exam 2 Narrative: General: No acute distress, awake alert and oriented x 3 Abdomen: Soft, nondistended, suprapubic tenderness, no guarding or rebound Data 05/25/24 05:00 05/25/24 05:00 A&P Assessment and plan (1) Diverticulitis of large intestine with complication: Plan Zosyn IV fluids Clear liquid diet If he worsens he will need an exploratory laparotomy with Perez's procedure If he continues to improve he will require colonoscopy in 4 to 6 weeks and sigmoidectomy is recommended Repeat CT of the abdomen pelvis performed today shows persistent air-fluid levels in the pelvis related to perforated diverticulitis. This collection has not walled off yet. He is likely going to require a more extended hospital course for IV antibiotics and may need to be discharged from antibiotics and follow-up CT as an outpatient. There is no drainable fluid collection at this time. It is likely that if a walled off abscess does not form in this area, it would not be amenable to IR drainage, but only time will tell Medical management per hospitalist Attestations 2 Medical Necessity Statement*: Per primary Coding Level of Care Code 15071 Diagnoses Diverticulitis of large intestine with complication K57.32
[2024-05-24] MEDS: ketorolac 30 mg/mL INJ IVP ×2 (14:32→20:05)
--- NOTE | 2024-05-24 17:08 | P.PN_ITS ---
Subjective 2 Subjective: Patient was seen this morning, continues to have abdominal pain although improved compared to yesterday, felt nauseous, had episodes of vomiting, requiring multiple nausea medications continues to require pain medication every 2 hours, discussed repeating abdominal CT today Vitals/I&O/Wt Last Vital Signs Temp 100.4 F H 05/24/24 15:09 Pulse 91 05/24/24 15:09 Resp 17 05/24/24 15:09 BP 138/79 05/24/24 15:09 Pulse Ox 92 05/24/24 15:09 O2 Del Method Room Air 05/24/24 15:09 05/24/24 05/24/24 05/24/24 06:59 14:59 22:59 Intake Total 1530 / 5204.0909 1050 / 3491 098.7215 / 1159.0909 Output Total 350 / 350 400 / 750 Balance 1530 / 5204.0909 700 / 700 -290.9091 / 409.0909 Weight last 48 hrs Weight 88.723 kg Weight 89.131 kg Weight 90.991 kg Physical Exam 2 Const: COMMON NORMALS: no acute distress and patient oriented x3 Resp: COMMON NORMALS: normal respiratory effort, No retractions, No use of accessory muscles and clear to auscultation bilaterally AUSCULTATION: clear to auscultation bilaterally Cardio: COMMON NORMALS: regular rate, regular rhythm, S1 normal heart sound present and S2 normal heart sound present RATE: regular rate RHYTHM: r egular rhythm HEART SOUNDS: S1 normal heart sound present and S2 normal heart sound present GI: COMMON NORMALS: Normal to inspection, nondistended, normoactive bowel sounds present and non-tender Extremity: COMMON NORMALS: no pedal edema Neuro: COMMON NORMALS: patient oriented x3 Psych: COMMON NORMALS: mental status grossly normal Data 05/24/24 03:43 05/24/24 03:43 A&P Assessment and plan (1) Diverticulitis: 1 week history of fever and abdominal pain that has recently become diffuse and more severe CBC shows leukocytosis with neutrophilic predominance CT/CT abdomen pelvis w con* [id number] IMPRESSION: 1. Sigmoid perforation with developing diverticular abscess. There is no well- formed abscess at this time. No liquefaction or wall containment. Phlegmonous collection measures 3.3 x 4.8 x 5.3 cm. 2. Marked narrowing of the sigmoid lumen with additional scattered diverticula. 3. Normal appendix. Plan Serial abdominal exams Started on IV Zosyn Due to intractable pain, added morphine 15 mg p.o. twice daily, space out morphine 2 mg IV push every 12 hours as needed Blood culture obtained as below Likely perform repeat CT scan on Friday (2) Intra-abdominal abscess: CT revealed developing diverticular abscess Started IV Zosyn Blood cultures ordered Plan Full code Lovenox for DVT prophylaxis S plan for today continue IV antibiotics, CT abdomen pelvis with IV contrast ordered, follow blood cultures, requires pain medications every 2 hours, nausea medications Attestations 2 Medical Necessity Statement*: Patient requires hospitalization for perforated diverticulitis Diagnoses Diverticulitis K57.92 Intra-abdominal abscess K65.1
[2024-05-25] VITALS (8 sets, daily range): BP systolic 147–161; BP diastolic 88–96; PULSE 73–103; RESP 15–19; TEMP 36.4–37.5; O2SAT 93–98
[2024-05-25] MEDS: piperacillin-tazobactam 3.375 GM in sodium chloride 0.9% (plus) 50 ML IV ×2 (00:56→08:13)
[2024-05-25] MEDS: ketorolac 30 mg/mL INJ IVP ×4 (02:08→20:15)
[2024-05-25] MEDS: sodium chloride 0.9% 1,000 ML 150 ML IV ×4 (02:57→22:57)
[2024-05-25] MEDS: morphine 4 mg/mL SDV 1 mL 2 MG IVP ×3 (03:44→22:57)
[2024-05-25 05:11] LABS: Basophils # 0.1 10^3/uL (0.0-0.1); Basophils % 0.3 %; Eosinophils # 0.4 10^3/uL (0.0-0.8); Eosinophils % 2.3 %; Hematocrit 34.7 % (37-53); Lymphocytes # 1.3 10^3/uL (0.8-4.8); Lymphocytes % 7.4 %; Mean Corpuscular HGB Conc 33.4 g/dL (30-55); Mean Corpuscular Hemoglobin 31.1 pg (27-33); Mean Platelet Volume 9.4 fL (7.4-10.4); Monocytes # 1.7 10^3/uL (0.2-0.9); Monocytes % 9.3 %; Neutrophils # 14.41 10^3/uL (1.8-7.7); Neutrophils % 79.8 %; Nucleated Red Blood Cells % 0 %; Platelet Count 267 10^3/cmm (157-399); Red Blood Count 3.73 10^6/uL (3.85-5.65); Red Cell Distribution Width 12.1 % (12.1-15.1); White Blood Count 18.04 10^3/uL (3.29-11.43)
[2024-05-25 05:37] LABS: Alanine Aminotransferase 30 U/L (0-41); Albumin Level 3.2 g/dL (3.5-5.2); Alkaline Phosphatase 61 U/L (40-130); Anion Gap 13.1 (5-19); Aspartate Amino Transferase 30 U/L (0-40); Blood Urea Nitrogen 4 mg/dL (6-20); C Reactive Protein 147.5 mg/L (0.0-4.9); Calcium 7.4 mg/dL (8.5-10.5); Carbon Dioxide 25 mmol/L (22-29); Chloride 103 mmol/L (98-107); Creatinine Clr Calc Pharmacy 195.0544; Globulin 3.2 g/dL (1.3-4.6); Glucose 117 mg/dL (65-115); Magnesium 2.1 mg/dL (1.7-2.3); Osmolality Calculated 284 mOsm/kg (285-295); Phosphorus 2.4 mg/dL (2.5-4.5); Potassium 3.1 mmol/L (3.5-5.1); Sodium 138 mmol/L (136-145); Total Bilirubin 0.9 mg/dL (0.15-1.2); Total Protein 6.4 g/dL (6.6-8.7)
[2024-05-25] MEDS: potassium chloride ER 20 mEq Tablet 40 MEQ PO (06:32)
[2024-05-25] MEDS: morphine ER (12 HR) 15 mg Tablet PO ×2 (08:13→16:38)
[2024-05-25] MEDS: enoxaparin 40 mg/0.4 mL Syringe SUBCUT (08:13)
[2024-05-25] MEDS: pantoprazole 40 mg SDV IVP (08:13)
[2024-05-25] MEDS: promethazine 25 mg/mL SDV 1 mL 12.5 MG IM (08:16)
--- NOTE | 2024-05-25 09:42 | PC.CHAP ---
Pastoral Care Encounter/Spiritual Assessment Type of Contact [] Declined materials planner visit [] Patient/Family/Request visit [] Outpatient visit [] Follow-up visit [] Physician referral [] Code/Alert [x] Routine visit [] Staff referral [] Actively dying [] Patient sleeping [] Family support [] [] Out of room [] Palliative care [] [] Receiving care in room [] Pre-surgical visit [] Trauma [] Long length of stay [] ICU visit [] Other: Relational/Emotional Strength [x] Patient feels connected with others/family/visitors/staff [] Distress [] Loneliness/isolation [] Abandonment Spirituality of Patient [x] Person of Barbara [] Attends Mormon of their Barbara [x] Believes in Prayer [] Reads Bible or Congregation materials [] There are Spiritual issues to be addressed Professor Of Surgery Interventions [x] Prayer [x] Active listening [x] Non-anxious presence [x] Spiritual/emotional support [] Crisis/trauma care [] Spiritual counseling [] Bereavement support [] Provided bereavement packet [] Provided Bible/devotional materials [] Provided toy/stuffed animal, coloring book to patient or family member [] Provided Communion [] Anointing/[place] [] Salvation [x] Completed spiritual assessment [] Other: Impact on Illness or Injury [] Angry [] Fearful [] Anxious [] Often cries [] Exhaustion [] Unable to work [] Unable to attend taoist [] Unable to walk/stand [] Unable to read [] Unable to drive [] Unable to eat/drink [] Unable to sleep [] Unable to be with family [] Patient intubated [] Other: Summary Time spent with patient 10 min
[2024-05-25] MEDS: amlodipine 10 mg Tablet PO (12:45)
--- NOTE | 2024-05-25 13:55 | P.PN_ITS ---
Subjective 2 Subjective: Patient was seen this morning, Vitals/I&O/Wt Last Vital Signs Temp 98.7 F 05/25/24 11:10 Pulse 73 05/25/24 11:10 Resp 16 05/25/24 11:10 BP 158/94 05/25/24 11:10 Pulse Ox 98 05/25/24 11:10 O2 Del Method Room Air 05/25/24 11:10 05/24/24 05/25/24 05/25/24 22:59 06:59 14:59 Intake Total 1499.0909 / 2549.0909 430 / 2979.0909 1160.083 / 1160.083 Output Total 400 / 750 Balance 1099.0909 / 1799.0909 430 / 2229.0909 1160.083 / 1160.083 Weight last 48 hrs Weight 88.723 kg Weight 88.723 kg Physical Exam 2 Const: COMMON NORMALS: no acute distress and patient oriented x3 Resp: COMMON NORMALS: normal respiratory effort, No retractions, No use of accessory muscles and clear to auscultation bilaterally AUSCULTATION: clear to auscultation bilaterally Cardio: COMMON NORMALS: regular rate, regular rhythm, S1 normal heart sound present and S2 normal heart sound present RATE: regular rate RHYTHM: r egular rhythm HEART SOUNDS: S1 normal heart sound present and S2 normal heart sound present GI: COMMON NORMALS: Normal to inspection, nondistended, normoactive bowel sounds present and non-tender Extremity: COMMON NORMALS: no pedal edema Neuro: COMMON NORMALS: patient oriented x3 Psych: COMMON NORMALS: mental status grossly normal Data 05/25/24 05:00 05/25/24 05:00 A&P Assessment and plan (1) Diverticulitis: 1 week history of fever and abdominal pain that has recently become diffuse and more severe CBC shows leukocytosis with neutrophilic predominance CT/CT abdomen pelvis w con* [id number] IMPRESSION: 1. Again seen are findings of perforated diverticulitis with poorly formed fluid collection/abscess measuring 6.4 x 6.7 x 8.5 cm with a small amount of internal fluid and mostly air with air-fluid level. Small amount of associated free fluid in the pelvis. 2. No hydronephrosis in either kidney. 3. Diffuse fatty infiltration of the liver. Serial abdominal exams Started on IV Zosyn Due to intractable pain, added morphine 15 mg p.o. twice daily, space out morphine 2 mg IV push every 12 hours as needed Blood culture obtained as below Likely perform repeat CT scan on Friday (2) Intra-abdominal abscess: CT revealed developing diverticular abscess Started IV Zosyn Blood cultures ordered Plan Full code Lovenox for DVT prophylaxis plan for today continue IV antibiotics, continue clinical monitoring Attestations 2 Medical Necessity Statement*: Patient requires hospitalization for diverticulitis, intra-abdominal abscess Diagnoses Diverticulitis K57.92 Intra-abdominal abscess K65.1
--- NOTE | 2024-05-25 14:16 | P.PN_ITS ---
Subjective 2 Subjective: Seen and examined. Still reporting significant suprapubic abdominal pain. Denies any nausea or vomiting. Vitals/I&O/Wt Last Vital Signs Temp 98.7 F 05/25/24 11:10 Pulse 73 05/25/24 11:10 Resp 16 05/25/24 11:10 BP 158/94 05/25/24 11:10 Pulse Ox 98 05/25/24 11:10 O2 Del Method Room Air 05/25/24 11:10 05/24/24 05/25/24 05/25/24 22:59 06:59 14:59 Intake Total 1499.0909 / 2549.0909 430 / 2979.0909 2062.583 / 2062.583 Output Total 400 / 750 Balance 1099.0909 / 1799.0909 430 / 2229.0909 2062.583 / 2062.583 Weight last 48 hrs Weight 195 lb 9.6 oz Weight 195 lb 9.6 oz Physical Exam 2 Narrative: General: No acute distress, awake alert and oriented x 3 Abdomen: Soft, nondistended, suprapubic tenderness, no guarding or rebound Data 05/25/24 05:00 05/25/24 05:00 A&P Assessment and plan (1) Diverticulitis of large intestine with complication: Plan Agree with switching to meropenem as his white blood cell count continues to go up IV fluids Abdominal exam has improved despite ongoing pain, will advance to full liquid diet If he worsens he will need an exploratory laparotomy with Perez's procedure If he continues to improve he will require colonoscopy in 4 to 6 weeks and sigmoidectomy is recommended Recommend repeat CT abdomen tomorrow with IV and oral contrast Medical management per hospitalist Attestations 2 Medical Necessity Statement*: Per primary Coding Level of Care Code 09833 Diagnoses Diverticulitis of large intestine with complication K57.32
[2024-05-25] MEDS: meropenem 500 mg SDV IVP ×2 (16:39→22:57)
[2024-05-26] VITALS (9 sets, daily range): BP systolic 142–165; BP diastolic 78–102; PULSE 68–106; RESP 15–20; TEMP 36.3–37.1; O2SAT 96–98
[2024-05-26] MEDS: ketorolac 30 mg/mL INJ IVP ×4 (01:47→19:41)
[2024-05-26] MEDS: meropenem 500 mg SDV IVP ×3 (06:27→22:06)
[2024-05-26] MEDS: sodium chloride 0.9% 1,000 ML 150 ML IV ×2 (07:23→14:36)
[2024-05-26] MEDS: enoxaparin 40 mg/0.4 mL Syringe SUBCUT (08:18)
[2024-05-26] MEDS: pantoprazole 40 mg SDV IVP (08:18)
[2024-05-26] MEDS: amlodipine 10 mg Tablet PO (08:18)
[2024-05-26] MEDS: morphine ER (12 HR) 15 mg Tablet PO (08:18)
[2024-05-26 11:12] LABS: Basophils # 0.1 10^3/uL (0.0-0.1); Basophils % 0.5 %; Eosinophils # 0.3 10^3/uL (0.0-0.8); Eosinophils % 2.5 %; Hematocrit 38.9 % (37-53); Lymphocytes # 1.5 10^3/uL (0.8-4.8); Lymphocytes % 11.8 %; Mean Corpuscular HGB Conc 33.9 g/dL (30-55); Mean Corpuscular Volume 91.3 fl (82-101); Monocytes # 0.9 10^3/uL (0.2-0.9); Monocytes % 6.7 %; Neutrophils # 9.91 10^3/uL (1.8-7.7); Neutrophils % 76.7 %; Nucleated Red Blood Cells % 0 %; Platelet Count 346 10^3/cmm (157-399); Red Blood Count 4.26 10^6/uL (3.85-5.65)
[2024-05-26 11:31] LABS: Anion Gap 15.4 (5-19); Blood Urea Nitrogen 5 mg/dL (6-20); Calcium 8.5 mg/dL (8.5-10.5); Carbon Dioxide 25 mmol/L (22-29); Chloride 105 mmol/L (98-107); Creatinine Clr Calc Pharmacy 233.6579; Glomerular Filtration Rate 185.1 mL/min (90-130); Glucose 125 mg/dL (65-115); Magnesium 2.2 mg/dL (1.7-2.3); Osmolality Calculated 293 mOsm/kg (285-295); Potassium 3.4 mmol/L (3.5-5.1); Sodium 142 mmol/L (136-145)
--- NOTE | 2024-05-26 14:58 | P.PN_ITS ---
Subjective 2 Subjective: Patient seen and examined. Abdominal pain significantly improved. Tolerating full liquid diet. Vitals/I&O/Wt Last Vital Signs Temp 98.1 F 05/26/24 11:36 Pulse 73 05/26/24 11:36 Resp 17 05/26/24 11:36 BP 149/85 05/26/24 11:36 Pulse Ox 96 05/26/24 11:36 O2 Del Method Room Air 05/26/24 11:36 05/25/24 05/26/24 05/26/24 22:59 06:59 14:59 Intake Total 1360 / 3422.583 960 / 4382.583 1520 / 1520 Output Total 600 / 600 Balance 1360 / 3422.583 360 / 3782.583 1520 / 1520 Weight last 48 hrs Weight 194 lb 12.8 oz Weight 195 lb 9.6 oz Physical Exam 2 Narrative: General: No acute distress, awake alert and oriented x 3 Abdomen: Soft, nondistended, mild suprapubic tenderness, no guarding or rebound Data 05/26/24 11:03 05/26/24 11:03 Micro: Microbiology 05/21/24 11:10 Blood Culture - Final Blood NO GROWTH AFTER 5 DAYS 05/21/24 11:12 Blood Culture - Final Blood NO GROWTH AFTER 5 DAYS A&P Assessment and plan (1) Diverticulitis of large intestine with complication: Plan Soft diet Repeat CT abdomen and pelvis in the morning N.p.o. after midnight for possible IR drain If he worsens he will need an exploratory laparotomy with Perez's procedure If he continues to improve he will require colonoscopy in 4 to 6 weeks and sigmoidectomy is recommended Recommend repeat CT abdomen tomorrow with IV and oral contrast Medical management per hospitalist Attestations 2 Medical Necessity Statement*: Per primary Coding Level of Care Code 73336 Diagnoses Diverticulitis of large intestine with complication K57.32
--- NOTE | 2024-05-26 15:31 | PC.NURSE ---
Pts BP 162/102. Dr. Meyer sent text and advised. Awaiting reply. Pt states he is not hurting, but states he feels shaky. States that he feels this way daily around this time. Blood sugar 140. Dr. Meyer text back with no order for medication
[2024-05-26 15:37] LABS: Glucose Point of Care 140 mg/dL (70-110)
[2024-05-26] MEDS: cloNIDine 0.1 mg Tablet PO (15:44)
--- NOTE | 2024-05-26 15:54 | P.PN_ITS ---
Subjective 2 Subjective: Patient reports a small bowel movement today, abdominal pain is improving, no fevers, no chills, no cough, no nausea, no vomiting Vitals/I&O/Wt Last Vital Signs Temp 98.5 F 05/26/24 15:27 Pulse 106 H 05/26/24 15:27 Resp 18 05/26/24 15:27 BP 165/102 05/26/24 15:44 Pulse Ox 98 05/26/24 15:27 O2 Del Method Room Air 05/26/24 15:27 05/26/24 05/26/24 05/26/24 06:59 14:59 22:59 Intake Total 960 / 4382.583 1520 / 1520 Output Total 600 / 600 Balance 360 / 3782.583 1520 / 1520 Weight last 48 hrs Weight 88.36 kg Weight 88.723 kg Physical Exam 2 Const: COMMON NORMALS: no acute distress and patient oriented x3 Resp: COMMON NORMALS: normal respiratory effort, No retractions, No use of accessory muscles and clear to auscultation bilaterally AUSCULTATION: clear to auscultation bilaterally Cardio: COMMON NORMALS: regular rate, regular rhythm, S1 normal heart sound present and S2 normal heart sound present RATE: regular rate RHYTHM: r egular rhythm HEART SOUNDS: S1 normal heart sound present and S2 normal heart sound present Extremity: COMMON NORMALS: no pedal edema Neuro: COMMON NORMALS: patient oriented x3 Psych: COMMON NORMALS: mental status grossly normal Data 05/26/24 11:03 05/26/24 11:03 Micro: Microbiology 05/21/24 11:10 Blood Culture - Final Blood NO GROWTH AFTER 5 DAYS 05/21/24 11:12 Blood Culture - Final Blood NO GROWTH AFTER 5 DAYS A&P Assessment and plan (1) Diverticulitis: 1 week history of fever and abdominal pain that has recently become diffuse and more severe CBC shows leukocytosis with neutrophilic predominance CT/CT abdomen pelvis w con* [id number] IMPRESSION: 1. Again seen are findings of perforated diverticulitis with poorly formed fluid collection/abscess measuring 6.4 x 6.7 x 8.5 cm with a small amount of internal fluid and mostly air with air-fluid level. Small amount of associated free fluid in the pelvis. 2. No hydronephrosis in either kidney. 3. Diffuse fatty infiltration of the liver. Serial abdominal exams Switch to meropenem Will de-escalate pain medications switch to oxycodone 5 mg every 4 hours as needed, 2 mg IV push morphine every 12 hours as needed for breakthrough pain Blood culture obtained as below, no growth so far Will order PICC line placement, will likely require 2 weeks of IV antibiotics, ertapenem 1 g IV every 24 hours Likely perform repeat CT tomorrow, possible drain placement based on imaging findings, and surgical consultation (2) Intra-abdominal abscess: CT revealed developing diverticular abscess Ertapenem 1 g IV every 24 hours Blood cultures ordered Plan Full code Lovenox for DVT prophylaxis plan for today continue IV antibiotics, continue clinical monitoring Attestations 2 Medical Necessity Statement*: Patient requires hospitalization for perforated diverticulitis with intra- abdominal abscess Diagnoses Diverticulitis K57.92 Intra-abdominal abscess K65.1
--- NOTE | 2024-05-26 17:51 | PICC.NOTE ---
Midline placed to left basilic vein. Referred to vascular access nurse for midline placement due to need for IV antibiotics x 2 weeks. Risks and benefits discussed and informed consent obtained from patient. Left arm assessed with left basilic vein measuring 5.3 mm, straight, and apparent best choice for placement. Using sterile technique and MST, left basilic vein accessed x 1 stick. Mid-arm circumference measured 10 cm from left AC 29 cm. Trimmed cath 10 cm with 0 cm external length noted. Line secured with stat-lock. Insertion site covered with Biopatch and TSM. Report given to bedside nurse, HEIDE Lawrence.
[2024-05-26] MEDS: morphine 4 mg/mL SDV 1 mL 2 MG IVP (21:35)
[2024-05-26] MEDS: trazodone 50 mg Tablet PO (22:06)
[2024-05-27] VITALS (20 sets, daily range): BP systolic 126–163; BP diastolic 75–98; PULSE 63–100; RESP 15–28; TEMP 36.3–37.2; O2SAT 94–98
[2024-05-27] MEDS: sodium chloride 0.9% 1,000 ML 75 ML IV ×2 (01:42→15:51)
[2024-05-27] MEDS: ketorolac 30 mg/mL INJ IVP ×3 (01:42→19:56)
[2024-05-27] MEDS: cloNIDine 0.1 mg Tablet PO ×2 (04:28→15:50)
[2024-05-27 06:02] LABS: Basophils # 0.1 10^3/uL (0.0-0.1); Basophils % 0.6 %; Eosinophils # 0.5 10^3/uL (0.0-0.8); Eosinophils % 4.8 %; Lymphocytes # 1.6 10^3/uL (0.8-4.8); Lymphocytes % 14.8 %; Mean Corpuscular HGB Conc 33.2 g/dL (30-55); Mean Corpuscular Hemoglobin 30.6 pg (27-33); Mean Corpuscular Volume 92.2 fl (82-101); Mean Platelet Volume 9.6 fL (7.4-10.4); Monocytes # 0.9 10^3/uL (0.2-0.9); Monocytes % 8.3 %; Neutrophils # 7.39 10^3/uL (1.8-7.7); Neutrophils % 68.8 %; Nucleated Red Blood Cells % 0 %; Platelet Count 341 10^3/cmm (157-399); Red Blood Count 4.12 10^6/uL (3.85-5.65); White Blood Count 10.74 10^3/uL (3.29-11.43)
[2024-05-27] MEDS: meropenem 500 mg SDV IVP (06:18)
[2024-05-27 06:19] LABS: Alanine Aminotransferase 28 U/L (0-41); Albumin Level 3.1 g/dL (3.5-5.2); Alkaline Phosphatase 56 U/L (40-130); Anion Gap 13.3 (5-19); Aspartate Amino Transferase 18 U/L (0-40); Blood Urea Nitrogen 4 mg/dL (6-20); C Reactive Protein 37.9 mg/L (0.0-4.9); Calcium 8.4 mg/dL (8.5-10.5); Carbon Dioxide 25 mmol/L (22-29); Chloride 104 mmol/L (98-107); Creatinine Clr Calc Pharmacy 230.8579; Globulin 3.4 g/dL (1.3-4.6); Glomerular Filtration Rate 185.1 mL/min (90-130); Glucose 112 mg/dL (65-115); Osmolality Calculated 286 mOsm/kg (285-295); Potassium 3.3 mmol/L (3.5-5.1); Sodium 139 mmol/L (136-145); Total Bilirubin 0.7 mg/dL (0.15-1.2); Total Protein 6.5 g/dL (6.6-8.7)
[2024-05-27 06:28] LABS: Procalcitonin 0.08 ng/mL (0-0.5)
--- NOTE | 2024-05-27 08:00 | CT_ITS ---
WS: [id number] CT ABDOMEN PELVIS TECHNIQUE: Contrast-enhanced CT of the abdomen and pelvis with coronal and sagittal reformatted image s. CLINICAL INFORMATION: F/U PERF DIVERTICULITIS COMPARISON: 05/24/2024 and 05/21/2024 DLP: 651.[address] scans at [facility] use at least one of these dose optimization techniques: automated e xposure control; mA and/or kV adjustment per patient size (includes targeted exams where dose is matc hed to clinical indication); or iterative reconstruction. FINDINGS: Compared to the recent prior examinations the fluid collection adjacent to the sigmoid colon has decr eased in size mostly containing air today with a small amount of dependent fluid. Today the mostly ai r-containing collection measures approximately 4.0 x 3.9 x 5.9 cm AP by transverse by craniocaudal. T his compares to prior examination where it measured 6.7 x 6.4 x 8.5 cm. Findings of acute diverticulitis have improved with persistent thickening and induration about the si gmoid colon. Improved induration of the surrounding fat. Small amount of free fluid in the pelvis demarcus ears slightly improved. Lung bases are well aerated. No other significant changes compared to the recent studies. CT/CT abdomen pelvis w con* [id number] IMPRESSION: 1. Interval improvement in the fluid collection mostly containing air today ad jacent to the sigmoid colon. Collection today measures 4.0 x 3.9 x 5.9 cm with only a small amount of dependent fluid improved from previous. 2. Improved but persistent changes of acute diverticulitis. 3. Small amount of free fluid in the pelvis appears slightly improved. 4. No other significant changes.
[2024-05-27] MEDS: amlodipine 10 mg Tablet PO (08:04)
[2024-05-27] MEDS: pantoprazole 40 mg SDV IVP (08:04)
[2024-05-27] MEDS: lidocaine 1% 5 ML in potassium chloride premix 100 ML 52.5 ML IV (09:11)
[2024-05-27] MEDS: iohexol 350 mg/mL 500 mL Btl (per mL) PO (09:52)
[2024-05-27] MEDS: iohexol 350 mg/mL 500 mL Btl (per mL) IV (09:52)
--- NOTE | 2024-05-27 11:26 | P.CONIM_ITS ---
Providers/Reason For Consult 2 Consulting Physician/Specialty*: Rocio Broderick MD/ Infectious Disease Reason for Consult*: Intraabdominal abscess Requesting Physician: Michael Meyer MD Attending Physician: Michael Meyer MD Primary Care Provider: Destiny Young MD History of Present Illness History of Present Illness Vickey Kirkland is a 38 year old male who is currently admitted to the hospital since 05/21/24 after presenting with acute abdominal pain and fever. He was found to have acute sigmoid doverticulitis with perforation and developing abscess. Phelgmonous changes were encountered. He started treatment with Piperacillin/ Tazobactam between 05/21-05/25 and was then switched to Meropenem on 06/04 due to persisting leukocytosis. Leukocytosis is now improving at 10,000. CT abdomen repeated this morning showed interval improvement in size of the abscess. Per radiology read, collection improved from 6.7 x 6.4 x 8.5 to 4 x 3.9 x 5.9. Small amount of free fluid in the pelvis. He is being assessed for IR drain placement today. Blood cx is negative from admission. Afebrile since 05/24/24. Clinically pain appears to be better No past h/o diverticulitis CT abdomen 2020 - ?? no gross abnormalities noted at the time H/o IBD? h/o CA in family? ? NSAID use ? Laxative use ? h/o STDs? Review of Systems 2 General: Reports: 10 or more systems reviewed and unremarkable except in HPI and below Const: Denies: fever(s), chills or body aches Eyes: Denies: change in vision, blurry vision or photophobia ENMT: Reports: hoarseness; Denies: throat pain, enlarged tonsils, odynophagia or nasal congestion Card: Denies: chest pain, palpitations, irregular heart rhythm, edema, swelling of feet/ankles, lightheadedness, pre-syncope, dyspnea on exertion or orthopnea Resp: Denies: dyspnea, productive cough, non-productive cough, wheezing, stridor, pain on inspiration, change in phlegm color, hemoptysis or chest congestion GI: Denies: abdominal pain, nausea, vomiting, hematemesis, coffee ground emesis, dysphagia, heartburn, diarrhea, constipation, GI cramping, change in stool character, hematochezia or melena : Denies: flank pain, dysuria, urinary frequency, urinary urgency, urinary hesitancy or hematuria Musc: Denies: neck pain, back pain, extremity pain, joint swelling, joint warmth or deformity Neuro: Denies: headache(s), numbness in extremities, weakness in extremities, sensory changes, difficulty walking, frequent falls, dizziness, vertigo, behavioral changes, Slurred speech present or seizure-like activity Psych: Denies: anxiety, depression, suicidal ideation or homicidal ideation Endo: Denies: polyuria, polydipsia, tired all the time, cold intolerance or hot flashes Oneil/Lymph: Denies: easy bruising or easy bleeding Medications/Allergies Home Medications Medication Instructions Recorded Confirmed Last Taken Type Ultima C 1 cap PO DAILY 05/21/24 05/21/24 Unknown History bisacodyl 5 mg tablet,delayed 5 mg PO DAILY PRN Constipation 05/21/24 05/21/24 Unknown History release (Dulcolax (bisacodyl)) naproxen sodium 220 mg tablet 220 mg PO BID PRN Pain 05/21/24 05/21/24 Unknown History (Aleve) polyethylene glycol 3350 17 17 g PO DAILY PRN Constipation 05/21/24 05/21/24 Unknown History gram/dose oral powder (Miralax) Allergies Allergy/AdvReac Type Severity Reaction Status Date / Time tree nut Allergy Unknown Verified 05/21/24 10:33 Current Medications Generic Name Dose Route Start Last Admin Trade Name Freq PRN Reason Stop Dose Admin Amlodipine Besylate 10 mg 05/25/24 12:00 05/27/24 08:04 Amlodipine 10 Mg Tablet PO 10 mg DAILY VALENTE Administration Clonidine HCl 0.1 mg 05/26/24 16:00 05/27/24 04:28 Clonidine 0.1 Mg Tablet PO 0.1 mg Q12H VALENTE Administration Enoxaparin Sodium 40 mg 05/21/24 10:00 05/27/24 10:19 Enoxaparin 40 Mg/0.4 Ml Syringe SUBCUT Not Given Q24H [facility]–1983 Sodium Chloride 1,000 mls @ 50 mls/hr 05/21/24 10:00 05/27/24 01:42 Sodium Chloride 0.9% IV 75 mls/hr .Q20H VALENTE Administration Ketorolac Tromethamine 30 mg 05/24/24 13:45 05/27/24 07:03 Ketorolac 30 Mg/Ml Inj IVP 05/29/24 13:44 Not Given Q6H VALENTE Meropenem 500 mg 05/25/24 15:00 05/27/24 06:18 Meropenem 500 Mg Sdv IVP 500 mg Q8H VALENTE Administration Protocol Metoclopramide HCl 5 mg 05/23/24 11:06 05/24/24 04:41 Metoclopramide 5 Mg/Ml Sdv 2 Ml IVP 5 mg Q6H PRN Administration NAUSEA AND VOMITING Morphine Sulfate 2 mg 05/26/24 15:57 05/26/24 21:35 Morphine 4 Mg/Ml Sdv 1 Ml IVP 2 mg Q12H PRN Administration Severe breakthrough Pain Ondansetron HCl 4 mg 05/21/24 09:56 05/23/24 17:50 Ondansetron 2 Mg/Ml Sdv 2 Ml IVP 4 mg Q6H PRN Administration vomiting, or N/V if npo Pantoprazole Sodium 40 mg 05/21/24 10:00 05/27/24 08:04 Pantoprazole 40 Mg Sdv IVP 40 mg Q24H VALENTE Administration Promethazine HCl 12.5 mg 05/23/24 11:06 05/25/24 08:16 Promethazine 25 Mg/Ml Sdv 1 Ml IM 12.5 mg Q6H PRN Administration NAUSEA Trazodone HCl 50 mg 05/26/24 21:32 05/26/24 22:06 Trazodone 50 Mg Tablet PO 50 mg BEDTIME PRN Administration SLEEP PFSH Acute 2 PFSH: Family History Father Prostate cancer Social History Smoking and tobacco/nicotine status: never used tobacco/nicotine Alcohol intake: never Sexually active: No Do you think of yourself as: Straight/Heterosexual Vitals/I&O/Wt Last Vital Signs Temp 98.2 F 05/27/24 07:54 Pulse 79 05/27/24 07:54 Resp 15 05/27/24 07:54 BP 148/97 05/27/24 07:54 Pulse Ox 98 05/27/24 07:54 O2 Del Method Room Air 05/27/24 07:54 05/26/24 05/27/24 05/27/24 22:59 06:59 14:59 Intake Total 1100 / 2620 500 / 3120 Output Total 400 / 400 Balance 700 / 2220 500 / 2720 Weight last 48 hrs Weight 85.865 kg Weight 88.36 kg Physical Exam 2 Narrative: Unable to see patient today as he is down in radiology at time of rounds. Data 05/27/24 05:10 05/27/24 05:10 Other Labs: Radiology Impressions Chest X-Ray 05/22/24 09:38 IMPRESSION: 1. No acute cardiopulmonary abnormality identified. KUB X-Ray 05/22/24 09:38 IMPRESSION: 1. Nonspecific but nonobstructive appearing bowel gas pattern. 2. Again noted, borderline splenic enlargement. . Abdomen/Pelvis CT 05/27/24 08:00 IMPRESSION: 1. Interval improvement in the fluid collection mostly containing air today adjacent to the sigmoid colon. Collection today measures 4.0 x 3.9 x 5.9 cm with only a small amount of dependent fluid improved from previous. 2. Improved but persistent changes of acute diverticulitis. 3. Small amount of free fluid in the pelvis appears slightly improved. 4. No other significant changes. Laboratory Results WBC 10.74 10^3/uL (3.29-11.43) 05/27/24 05:10 RBC 4.12 10^6/uL (3.85-5.65) 05/27/24 05:10 Hgb 12.60 g/dL (11.27-16.99) 05/27/24 05:10 Hct 38.0 % (37-53) 05/27/24 05:10 MCV 92.2 fl (82-101) 05/27/24 05:10 MCH 30.6 pg (27-33) 05/27/24 05:10 MCHC 33.2 g/dL (30-55) 05/27/24 05:10 RDW 12.0 % (12.1-15.1) L 05/27/24 05:10 Plt Count 341 10^3/cmm (157-399) 05/27/24 05:10 MPV 9.6 fL (7.4-10.4) 05/27/24 05:10 Neut % (Auto) 68.8 % 05/27/24 05:10 Lymph % (Auto) 14.8 % 05/27/24 05:10 [place] % (Auto) 8.3 % 05/27/24 05:10 Eos % (Auto) 4.8 % 05/27/24 05:10 Baso % (Auto) 0.6 % 05/27/24 05:10 Neut # (Auto) 7.39 10^3/uL (1.8-7.7) 05/27/24 05:10 Lymph # (Auto) 1.6 10^3/uL (0.8-4.8) 05/27/24 05:10 [place] # (Auto) 0.9 10^3/uL (0.2-0.9) 05/27/24 05:10 Eos # (Auto) 0.5 10^3/uL (0.0-0.8) 05/27/24 05:10 Baso # (Auto) 0.1 10^3/uL (0.0-0.1) 05/27/24 05:10 Nucleated RBC % (auto) 0 % 05/27/24 05:10 Nucleated RBCs # 0.0 /100WBC 05/27/24 05:10 Sodium 139 mmol/L (136-145) 05/27/24 05:10 Potassium 3.3 mmol/L (3.5-5.1) L 05/27/24 05:10 Chloride 104 mmol/L (98-107) 05/27/24 05:10 Carbon Dioxide 25 mmol/L (22-29) 05/27/24 05:10 Anion Gap 13.3 (5-19) 05/27/24 05:10 BUN 4 mg/dL (6-20) L 05/27/24 05:10 Creatinine 0.5 mg/dL (0.7-1.2) L 05/27/24 05:10 GFR Calculation 185.1 mL/min (90-130) H 05/27/24 05:10 Glucose 112 mg/dL (65-115) 05/27/24 05:10 POC Glucose 140 mg/dL (70-110) H 05/26/24 15:33 Calculated Osmolality 286 mOsm/kg (285-295) 05/27/24 05:10 Lactic Acid 1.7 mmol/L (0.5-2.2) 05/21/24 07:55 Calcium 8.4 mg/dL (8.5-10.5) L 05/27/24 05:10 Phosphorus 2.4 mg/dL (2.5-4.5) L 05/25/24 05:00 Magnesium 2.2 mg/dL (1.7-2.3) 05/26/24 11:03 Total Bilirubin 0.7 mg/dL (0.15-1.2) 05/27/24 05:10 AST 18 U/L (0-40) 05/27/24 05:10 ALT 28 U/L (0-41) 05/27/24 05:10 Alkaline Phosphatase 56 U/L (40-130) 05/27/24 05:10 C-Reactive Protein 37.9 mg/L (0.0-4.9) H 05/27/24 05:10 Total Protein 6.5 g/dL (6.6-8.7) L 05/27/24 05:10 Albumin 3.1 g/dL (3.5-5.2) L 05/27/24 05:10 Globulin 3.4 g/dL (1.3-4.6) 05/27/24 05:10 Lipase 16 U/L (13-60) 05/21/24 07:55 Procalcitonin 0.08 ng/mL (0-0.5) 05/27/24 05:10 Urine Color Yellow (Yellow) 05/21/24 08:14 Urine Appearance Cloudy (CLEAR) A 05/21/24 08:14 Urine pH 8.0 (5-7) A 05/21/24 08:14 Ur Specific [place] 1.019 (1.005-1.030) 05/21/24 08:14 Urine Protein Negative (Negative) 05/21/24 08:14 Urine Glucose (UA) Negative (Normal) 05/21/24 08:14 Urine Ketones 3+ (Negative) H 05/21/24 08:14 Urine Blood Negative (Negative) 05/21/24 08:14 Urine Nitrate Negative (Negative) 05/21/24 08:14 Urine Bilirubin Negative (Negative) 05/21/24 08:14 Urine Urobilinogen 1.0 mg/dL (Negative) 05/21/24 08:14 Ur Leukocyte Esterase Trace (Negative) A 05/21/24 08:14 Urine RBC 0-2 /hpf (0-2) 05/21/24 08:14 Urine WBC 0-5 /hpf (0-5) 05/21/24 08:14 Ur Squamous Epith Cells 0-5 /hpf (0-5) 05/21/24 08:14 Amorphous Sediment Not Reportable 05/21/24 08:14 Urine Bacteria None seen /hpf (NONE) 05/21/24 08:14 Hyaline Casts 0.40 /lpf 05/21/24 08:14 Micro: Microbiology 05/21/24 11:10 Blood Culture - Final Blood NO GROWTH AFTER 5 DAYS 05/21/24 11:12 Blood Culture - Final Blood NO GROWTH AFTER 5 DAYS A&P Assessment and plan (1) Intra-abdominal abscess: (2) Diverticulitis of large intestine with complication: Plan 38M admitted with acute abdominal pain, fever, found to have acute sigmoid diverticulitis with perforation and intra abdominal abscess Initially treated with Zosyn, transitioned to Meropenem 500mg iv every 8 hrs on 05/25/24 due to persisting leukocytosis Clinically improving per review of chart and labs Repeat Ct shows improving size of abscess with dimensions as noted above To be assessed for IR drain placement today Plan : Increase dose of meropenem to recommended dose of 1 g iv every 8 hrs for complicated intra abdominal infection Planning discharge on Ertapenem 1g iv every 24 hrs Agree with PICC line for same Anticipate at least 2 weeks of treatment at this time IF drain placed today, recommend gram stain and cx from the abscess Recommend Ct abdomen in 2 weeks to assess for serial improvement prior to discontinuing iv abx. Patient was down in radiology for procedure at the time of rounds. Will attempt to see at a later time. Coding Level of Care Code Acute Code for [facility] Fwd Diagnoses Intra-abdominal abscess K65.1 Diverticulitis of large intestine with complication K57.32
--- NOTE | 2024-05-27 13:06 | CT_ITS ---
WS: [id number] CT-GUIDED drainage catheter placement. HISTORY: Perforated diverticulitis FLUOROSCOPIC TIME: 2.1 minutes. DLP: 735.[address] scans at [facility] use at least one of these dose optimization techniques: automated e xposure control; mA and/or kV adjustment per patient size (includes targeted exams where dose is matc hed to clinical indication); or iterative reconstruction. Prior CTs are reviewed. Consent was obtained from the patient prior to the procedure. Patient understands this may not allevi ate the necessity for surgery. Patient is at risk for sepsis, additional abscess or infection or blee ding. Abscesses localized deep within the pelvis. Abscess is predominantly air but does contain oral contra st that was ingested recently for prior CT. There is focal perforation site which is open from the si gmoid. Under CT fluoroscopy and patient under conscious sedation access into the cavity was achieved with a 17-gauge needle. A wire was placed into the cavity. The tract is dilated. 10 [place] pigtail catheter is then placed within the cavity without complications. Pigtail is coiled in the cavity. Feculent mat erial was aspirated. A small specimen was obtained for culture and sensitivity. The vacuum bag was connected to the pigtail catheter via a three-way stopcock. Multiple op sites are placed over the drainage catheter. Post procedure orders include record output from the drainage catheter per shift and flush per shift with 10 cc of sterile saline. CT/CT guided drainage [id number] IMPRESSION: 1. Uncomplicated 10 [place] pigtail drainage catheter in the sigmoid abscess. 2. There is an open communication between the sigmoid and the sigmoid abscess. Oral contrast that was given earlier the same day demonstrates a tract communi cating between the sigmoid and the abscess.
--- NOTE | 2024-05-27 13:25 | P.PN_ITS ---
Subjective 2 Subjective: Patient seen and examined. He has been n.p.o. since midnight for possible IR drain placement today. Drain will be placed at 2 PM potentially. Reports pain much improved. Tolerating diet. Vitals/I&O/Wt Last Vital Signs Temp 97.7 F 05/27/24 23:51 Pulse 63 05/27/24 23:51 Resp 16 05/27/24 23:51 BP 128/78 05/27/24 23:51 Pulse Ox 96 05/27/24 23:51 O2 Del Method Room Air 05/27/24 23:51 05/27/24 05/27/24 05/28/24 14:59 22:59 06:59 Intake Total 105 / 105 1979 / 2085 Output Total 525 / 525 Balance 105 / 105 1455 / 1560 Weight last 48 hrs Weight 189 lb 4.8 oz Weight 194 lb 12.8 oz Physical Exam 2 Narrative: General: No acute distress, awake alert and oriented x 3 Abdomen: Soft, nondistended, mild suprapubic tenderness, no guarding or rebound Data 05/27/24 05:10 05/27/24 05:10 A&P Assessment and plan (1) Diverticulitis of large intestine with complication: Plan Possible IR drainage today Infectious disease consulted. Patient placed on meropenem with plans to discharge home on ertapenem for at least 2 weeks Expecting the patient will be able to be discharged home tomorrow Follow-up in my office on Friday for drain output evaluation If he worsens he will need an exploratory laparotomy with Perez's procedure If he continues to improve he will require colonoscopy in 4 to 6 weeks and sigmoidectomy is recommended Medical management per hospitalist Attestations 2 Medical Necessity Statement*: Per primary Coding Level of Care Code 17169 Diagnoses Diverticulitis of large intestine with complication K57.32
[2024-05-27] MEDS: sodium chloride 0.9% 1,000 ML 30 ML IV (14:30)
[2024-05-27] MEDS: fentaNYL 50 mcg/mL INJ 2mL IVP (14:40)
[2024-05-27] MEDS: midazolam 1 mg/mL INJ 2 mL IVP ×2 (14:41→14:55)
[2024-05-27] MEDS: fentaNYL 50 mcg/mL INJ 2mL 25 MCG IVP (14:53)
[2024-05-27] MEDS: meropenem 1,000 mg SDV 1000 MG IVP ×2 (15:50→22:50)
--- NOTE | 2024-05-27 17:04 | P.PN_ITS ---
Subjective 2 Subjective: Patient was seen this morning, his abdominal pain is much more under control, he had a bowel movement, no fevers, no chills, no nausea, no vomiting, discussed repeat CT scan today, and possible drain placement, he has had his midline placed, discussed IV antibiotics for at least 2 weeks, he will need to follow-up with general surgery, follow-up with infectious disease, will also have infectious disease consult today, he is in agreement Vitals/I&O/Wt Last Vital Signs Temp 97.6 F 05/27/24 15:25 Pulse 74 05/27/24 15:25 Resp 17 05/27/24 15:25 BP 143/91 05/27/24 15:50 Pulse Ox 96 05/27/24 15:25 O2 Del Method Room Air 05/27/24 15:25 05/27/24 05/27/24 05/27/24 06:59 14:59 22:59 Intake Total 500 / 3120 105 / 105 1620 / 1725 Balance 500 / 2720 105 / 105 1620 / 1725 Weight last 48 hrs Weight 85.865 kg Weight 88.36 kg Physical Exam 2 Const: COMMON NORMALS: no acute distress and patient oriented x3 Resp: COMMON NORMALS: normal respiratory effort, No retractions, No use of accessory muscles and clear to auscultation bilaterally AUSCULTATION: clear to auscultation bilaterally Cardio: COMMON NORMALS: regular rate, regular rhythm, S1 normal heart sound present and S2 normal heart sound present RATE: regular rate RHYTHM: r egular rhythm HEART SOUNDS: S1 normal heart sound present and S2 normal heart sound present GI: COMMON NORMALS: Normal to inspection, nondistended, normoactive bowel sounds present and non-tender Extremity: COMMON NORMALS: no pedal edema Neuro: COMMON NORMALS: patient oriented x3 Psych: COMMON NORMALS: mental status grossly normal Data 05/27/24 05:10 05/27/24 05:10 Micro: Microbiology 05/21/24 11:10 Blood Culture - Final Blood NO GROWTH AFTER 5 DAYS 05/21/24 11:12 Blood Culture - Final Blood NO GROWTH AFTER 5 DAYS A&P Assessment and plan (1) Diverticulitis: 1 week history of fever and abdominal pain that has recently become diffuse and more severe CBC shows leukocytosis with neutrophilic predominance CT/CT abdomen pelvis w con* [id number] IMPRESSION: 1. Again seen are findings of perforated diverticulitis with poorly formed fluid collection/abscess measuring 6.4 x 6.7 x 8.5 cm with a small amount of internal fluid and mostly air with air-fluid level. Small amount of associated free fluid in the pelvis. 2. No hydronephrosis in either kidney. 3. Diffuse fatty infiltration of the liver. Serial abdominal exams Currently on meropenem oxycodone 5 mg every 4 hours as needed, 2 mg IV push morphine every 12 hours as needed for breakthrough pain Blood culture obtained as below, no growth so far Repeat CT scan pelvis with IV contrast Drain placement today Infectious disease consultation (2) Intra-abdominal abscess: Plan Full code Lovenox for DVT prophylaxis plan for today continue IV antibiotics, continue clinical monitoring, repeat CT scan IV contrast, IR guided drain placement, spoke to general surgery, spoke to infectious disease for consultation Attestations 2 Medical Necessity Statement*: Patient requires hospitalization for diverticulitis, intra-abdominal abscess Diagnoses Diverticulitis K57.92 Intra-abdominal abscess K65.1
[2024-05-27] MEDS: oxyCODONE 5 mg IR Tab/Cap PO ×2 (18:29→22:50)
--- NOTE | 2024-05-27 18:37 | PC.NURSE ---
Pt complains of numbness to left leg. States that he cannot move his leg or lift it off of bed. Pt able to move his toes and states he can feel me touch his toes. Does not feel any sensation when I touch higher up on the left leg. Dr. Meyer notified and advised of above. States he will come and see pt.
--- NOTE | 2024-05-27 18:58 | CTR_ITS ---
PROCEDURE INFORMATION: Exam: CT Abdomen And Pelvis Without Contrast Exam date and time: 05/27/2024 7:06 PM Age: 38 years old Clinical indication: Other: Abscess size TECHNIQUE: Imaging protocol: Computed tomography of the abdomen and pelvis without contrast. Axial, coronal and sagittal reformatted images were created and reviewed. Radiation optimization: All CT scans at this facility use at least one of these dose optimization techniques: automated exposure control; mA and/or kV adjustment per patient size (includes targeted exams where dose is matched to clinical indication); or iterative reconstruction. COMPARISON: CT abdomen pelvis w con* [id number] 05/27/2024 9:47 AM RADIATION DOSE METRICS: Total DLP (mGy-cm): 670.05 FINDINGS: Tubes, catheters and devices: Interval placement of a percutaneous drainage catheter in the previously seen diverticular abscess, now completely resolved with a small amount of residual extraluminal gas and phlegmonous change. Small amount of free pelvic fluid. No convincing organized collection at this time. Liver: Coarse calcified hepatic granuloma. Gallbladder and biliary ducts: No radiodense gallstones. No biliary ductal dilatation. Pancreas: Unremarkable. Spleen: Unremarkable. Adrenal glands: Normal. No mass. Kidneys and ureters: Nonobstructing bilateral renal calculi. No hydronephrosis. Stomach and bowel: Persistent area of wall thickening and associated pericolonic stranding in the sigmoid colon in a region containing multiple diverticula. No obstruction. No pneumatosis. Appendix: Normal. Intraperitoneal space: See Tubes, catheters and devices finding. Vasculature: Unremarkable. No aneurysm. Lymph nodes: No pathologically enlarged lymph nodes. Urinary bladder: Mild circumferential urinary bladder wall thickening, likely secondary to underdistention. Reproductive: Unremarkable. Bones/joints: No acute osseous abnormality. Soft tissues: Unremarkable. CT/CT abdomen pelvis wo con [id number] IMPRESSION: 1. Interval placement of a percutaneous drainage catheter in the previously seen diverticular abscess, now completely resolved with a small amount of residual extraluminal gas and phlegmonous change. No convincing organized collection at this time. 2. Additional findings, as above.
--- NOTE | 2024-05-27 18:58 | CTR_ITS ---
PROCEDURE INFORMATION: Exam: CT Lumbar Spine Without Contrast Exam date and time: 05/27/2024 7:06 PM Age: 38 years old Clinical indication: Low back pain; Prior surgery; Surgery date: Post-operative (0-2 days); Surgery type: CT guided drainage done today for abscess TECHNIQUE: Imaging protocol: Computed tomography of the lumbar spine without contrast. Axial, coronal and sagittal reformatted images were created and reviewed. Radiation optimization: All CT scans at this facility use at least one of these dose optimization techniques: automated exposure control; mA and/or kV adjustment per patient size (includes targeted exams where dose is matched to clinical indication); or iterative reconstruction. COMPARISON: CT abdomen pelvis wo con [id number] 05/27/2024 7:06 PM RADIATION DOSE METRICS: Total DLP (mGy-cm): 0 FINDINGS: Bones/joints: Normal lumbar lordosis. No CT evidence of acute fracture, dislocation or subluxation. Alignment anatomic. Vertebral body heights maintained. Soft tissues: Grossly unremarkable. CT/CT lumbar spine recon [id number] IMPRESSION: No CT evidence of acute lumbar spine pathology.
--- NOTE | 2024-05-27 19:03 | P.PNCC_ITS ---
Critical Care Event Note The high probability of a clinically significant, sudden or life threatening deterioration of the patient's [] system(s) required my full and direct attention, intervention and personal management. The critical care time is as shown. This time is in addition to time spent performing any reported procedures but includes the following: [x] Data and vital sign review and interpretation [x] Patient assessment, examination and intervention [x] Documentation [x] Medication orders and management Critical Care Time Code activated: No Critical Care Time (min): 35 Additional information about critical care time: - Patient notified nursing staff that his left leg is numb, weak, acutely, he has paresthesias, he cannot move his left leg -Immediately evaluated patient -Complaining of abdominal pain he is just received oxycodone, his intra- abdominal drain is in place -He tells me about 15 minutes ago or so he had some pain, he has a history of sciatica, so he rotated in bed, -He then noticed that his left leg was weak, became, had paresthesias -Possibly intermittent low back pain -We does not really feel that the pain is radiating down from his back -He demonstrates for me that he can wiggle his toes but a few minutes ago he was unable to do that, -He is dorsal and plantar and eversion and inversion is significantly diminished compared to the right -His anterior posterior compartments of his calf, anterior leg strength is significant diminished but he is able to lift his leg off the bed, but significantly diminished compared to the right -He has numbness throughout the left leg but can feel my fingers, he does have pins and needle sensations, but is reporting temperature fluctuations between hot and cold of the left lower extremity throughout -He does have saddle anesthesia, has perianal anesthesia on the left, no urinary continence, no bowel continence, no fevers -Discussed with patient that I am quite concerned about cauda equina syndrome, possible hematoma compressing his L1-L5 nerve root, or possible infection, or possible drain placement playing a role, or possible different pathology/etiology altogether compressing those L1 nerve roots -He does not really complain of pain in his left lower extremity, pain is more in the abdomen -He does have DP PT pulses palpable bilaterally -Nonetheless we will order arterial ultrasound left lower extremity stat -Left lower extremity is not significantly cold compared to the right on examination -Does report chronic sciatica -Spoke to Dr. Rod, discussed concerns, recommended stat MRI lumbar spine without contrast -In the meantime we will start him on Decadron 10 mg IV push every 6 hours -Spoke to Dr. Gardner, drain placement was an anterior approach -Spoke to hospitalist on-call, monitor test results closely Coding Level of Care Code Acute Code for Chg Fwd
--- NOTE | 2024-05-27 19:11 | USCV_ITS ---
Vickey Kirkland Age: 38 Gender: M : 1985 Exam Date: 05/27/2024 22:09 Ordering Phys: Michael Meyer MD Technologist: THOMAS [place] [facility] [place]: weakness and paresthesia post-op LEFT pelvic bowel resection. No DM Risk Factors: weakness and paresthesia post-op LEFT pelvic bowel resection No DM Previous Vascular Surgery: None RIGHT LEFT BP: 162.0 / 91.00 BP: / 0 Waveform Velocity (cm/s) Velocity (cm/s) Waveform HOLLOCK MAKER 148.0 Triphasic SFA Prox Triphasic 103.0 SFA Mid 124.0 Triphasic SFA Dist 76.0 Triphasic POP 83.0 Triphasic WIND FIELD MANAGER 86.0 Biphasic DPA 84.0 Triphasic MELLISSA 1.2 1.3 FINDINGS Resting MELLISSA 1.3 on the right and 1.2 on the left Triphasic Doppler waveforms in the femoral, popliteal and infrapopliteal vessels on the left side. CONCLUSIONS Normal ABIs bilaterally. No significant arterial obstruction in the left lower extremity based on the above findings Dr Kd Khalil MD [facility] (Electronically Signed) Final Date: 27 May 2024 23:52 S
[2024-05-27 19:48] LABS: Creatine Phosphokinase 97 U/L (39-308)
[2024-05-27 19:55] LABS: Procalcitonin 0.08 ng/mL (0-0.5)
[2024-05-27] MEDS: dexamethasone 10 mg/mL INJ IVP (19:56)
[2024-05-27 20:33] LABS: Erythrocyte Sedimentation Rate 31 mm/hr (0-10)
[2024-05-27] MEDS: trazodone 50 mg Tablet PO (22:50)
[2024-05-28] VITALS (11 sets, daily range): BP systolic 138–163; BP diastolic 80–97; PULSE 70–98; RESP 14–19; TEMP 36.5–36.8; O2SAT 94–98
[2024-05-28] MEDS: dexamethasone 10 mg/mL INJ IVP ×4 (01:59→20:51)
[2024-05-28] MEDS: cloNIDine 0.1 mg Tablet PO ×2 (04:31→16:31)
[2024-05-28] MEDS: ketorolac 30 mg/mL INJ IVP ×3 (05:06→23:03)
[2024-05-28 05:46] LABS: Basophils % 0.3 %; Eosinophils % 0.1 %; Hematocrit 44.1 % (37-53); Lymphocytes # 1.3 10^3/uL (0.8-4.8); Lymphocytes % 10.3 %; Mean Corpuscular HGB Conc 33.6 g/dL (30-55); Mean Corpuscular Volume 92.3 fl (82-101); Mean Platelet Volume 9.6 fL (7.4-10.4); Monocytes # 0.1 10^3/uL (0.2-0.9); Monocytes % 0.6 %; Neutrophils # 10.67 10^3/uL (1.8-7.7); Neutrophils % 86.4 %; Nucleated Red Blood Cells % 0 %; Platelet Count 496 10^3/cmm (157-399); Red Blood Count 4.78 10^6/uL (3.85-5.65); Red Cell Distribution Width 11.8 % (12.1-15.1); White Blood Count 12.35 10^3/uL (3.29-11.43)
[2024-05-28 06:14] LABS: Alanine Aminotransferase 26 U/L (0-41); Albumin Level 3.6 g/dL (3.5-5.2); Alkaline Phosphatase 66 U/L (40-130); Anion Gap 18.1 (5-19); Aspartate Amino Transferase 17 U/L (0-40); Blood Urea Nitrogen 8 mg/dL (6-20); C Reactive Protein 18.6 mg/L (0.0-4.9); Calcium 9.1 mg/dL (8.5-10.5); Carbon Dioxide 23 mmol/L (22-29); Chloride 104 mmol/L (98-107); Creatinine Clr Calc Pharmacy 192.1693; Globulin 4.1 g/dL (1.3-4.6); Glucose 153 mg/dL (65-115); Osmolality Calculated 293 mOsm/kg (285-295); Potassium 4.1 mmol/L (3.5-5.1); Sodium 141 mmol/L (136-145); Total Protein 7.7 g/dL (6.6-8.7)
[2024-05-28 06:21] LABS: Procalcitonin 0.05 ng/mL (0-0.5)
[2024-05-28] MEDS: meropenem 1,000 mg SDV 1000 MG IVP ×3 (07:11→23:03)
--- NOTE | 2024-05-28 07:49 | CT_ITS ---
WS: [id number] CT HEAD TECHNIQUE: Noncontrast CT of the head obtained from the skullbase to the vertex. CLINICAL INFORMATION: left leg weakness COMPARISON: 2017 DLP: 1062.[address] scans at [facility] use at least one of these dose optimization techniques: automated e xposure control; mA and/or kV adjustment per patient size (includes targeted exams where dose is matc hed to clinical indication); or iterative reconstruction. FINDINGS: No evidence of intracranial hemorrhage or mass effect. Ventricular system and basal cisterns are de la rosa nt. No extra-axial fluid collections. No evidence of mass or mass effect. Normal headley-white different iation. Paranasal sinuses and mastoid air cells are well aerated. .Normal visualized soft tissues. CT/CT head wo con* [id number] IMPRESSION: 1. No evidence of intracranial hemorrhage or mass effect. 2. Normal headley-white differentiation. 3. No acute intracranial findings. Notified Michael Meyer MD at 05/28/2024 8:55 AM.
[2024-05-28] MEDS: pantoprazole 40 mg SDV IVP (08:47)
[2024-05-28] MEDS: oxyCODONE 5 mg IR Tab/Cap PO ×3 (08:47→18:46)
[2024-05-28] MEDS: amlodipine 10 mg Tablet PO (08:47)
--- NOTE | 2024-05-28 11:52 | P.PN_ITS ---
Subjective 2 Subjective: No abdominal pain Tolerating clears Abdomen soft Having bowel function Minimal drain output from perc drain Vitals/I&O/Wt Last Vital Signs Temp 97.7 F 05/28/24 08:00 Pulse 70 05/28/24 08:00 Resp 18 05/28/24 08:47 BP 152/94 05/28/24 08:00 Pulse Ox 94 05/28/24 08:47 O2 Del Method Room Air 05/28/24 08:00 05/27/24 05/28/24 05/28/24 22:59 06:59 14:59 Intake Total 1979 / 2084 360 / 2445 316 / 316 Output Total 525 / 525 700 / 1225 Balance 1455 / 1560 -340 / 1220 316 / 316 Weight last 48 hrs Weight 188 lb 12.8 oz Weight 189 lb 4.8 oz Physical Exam 2 Narrative: Chest: Unlabored breathing room air. No lymphadenopathy. Heart: Regular rate and rhythm. Abdomen: Soft, nontender, nondistended. No masses or lymphadenopathy. Data 05/28/24 05:03 05/28/24 05:03 A&P Assessment and plan (1) Diverticulitis of large intestine with complication: Plan 38-year-old male who presented with diverticulitis and radha colonic abscess. Status post IR percutaneous drain. Patient is tolerating clear liquids and has no abdominal pain today. Abdomen is soft. Radiology images reviewed. Patient is cleared for discharge. Finish course of antibiotics and follow-up with Dr. Pearce in clinic. Attestations 2 Medical Necessity Statement*: N/A Coding Level of Care Code 96969 Diagnoses Diverticulitis of large intestine with complication K57.32 Time Spent (min) 30
--- NOTE | 2024-05-28 12:41 | P.PN_ITS ---
Subjective 2 Subjective: overnight events reviewed. Patient states that numbness and weakness over the leg are better today, though still persisting Patient underwent drain placement yesterday with IR. Drain in place over LLQ , currently draining feculent material, output of 200cc earlier today. Plan per surgery to discharge with drain in place. Cx taken from drain placemnet- currently pending Patient reports having had h/o GI issues' for many years. States that during COVID he was disgnosed with a hernia which caused him to have abdominal pain. This is why he had the CT in 2020. He states it suspected at the time that he may have Crohn's disease and was referred to see Dr. Franco for EGD and colonoscopy. He states he was recommended to lose weight. Since it was the peak of Covid epidemic that time and his symptoms resolved with diet and exercise he did not pursue this any further. He started to have abdominal issues again since November 2023. He describes discomfort and bloating as his primary concerns. No diarrhea or change in BM. No h/o chronic laxative use. States he tried imodium and laxative prior t this admission. No h/o bloody BM. No family h/o autoimmune disorders. He has been using daily naproxen since November due to bodyache. 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 He is concerned because he has been noticing palpable cervical lymph nodes frequently and also has removed several tonsilloliths. Medications: Reviewed: Yes Vitals/I&O/Wt Last Vital Signs Temp 97.7 F 05/28/24 12:00 Pulse 98 05/28/24 12:00 Resp 15 05/28/24 12:00 BP 154/97 05/28/24 12:00 Pulse Ox 98 05/28/24 12:00 O2 Del Method Room Air 05/28/24 12:00 05/27/24 05/28/24 05/28/24 22:59 06:59 14:59 Intake Total 1979 / 2084 360 / 2445 316 / 316 Output Total 525 / 525 700 / 1225 Balance 1455 / 1560 -340 / 1220 316 / 316 Weight last 48 hrs Weight 85.638 kg Weight 85.865 kg Physical Exam 2 Narrative: General: No acute distress, AO x3 HEENT: PERRLA, pupils bilaterally equal and reactive, pallors not present Chest: Normal vesicular breath sounds, no added sounds, equal good air entry bilaterally CVS: S1-S2 regular, no murmurs, no tachycardia, no gallops, no rubs Abdomen: Soft, nontender, no organomegaly, bowel sounds present, LLQ drain with feculent material Neuro: No focal deficits, no facial deformity, AO x3, power 5/5 in all limbs Data 05/29/24 02:36 05/29/24 02:36 A&P Assessment and plan (1) Intra-abdominal abscess: (2) Diverticulitis of large intestine with complication: Plan 38M admitted with acute abdominal pain, fever, found to have acute sigmoid diverticulitis with perforation and intra abdominal abscess Initially treated with Zosyn, transitioned to Meropenem 500mg iv every 8 hrs on 05/25/24 due to persisting leukocytosis leukocytosis improving he is s/p IR drain placement yesterday Repeat post drain placement shows near complete resolution of the abscess Currently feculent material noted in drain - conservative mengaement recommended per surgery. Plan : Continue meropenem 1 g iv every 8 hrs for complicated intra abdominal infection Planning discharge on Ertapenem 1g iv every 24 hrs for AT LEAST 2 weeks. Picc line for the same. will follow drain cx and adjust abx accordingly if needed Recommend Ct abdomen in 2 weeks to assess for serial improvement prior to discontinuing iv abx. Recommend age appropriate HIV, hepatitis B and C screen Cervical lymph nodes palpable, though subcentimeter, may be related to tonsilloliths, recommend f/up with PCP recommend WILL, ANCA to assess for underlying autoimmune disorder which may explain young age for compliacted abdominal infection, recurrent joint and abdominal issues, persistent fatigue. Recommend HLA b27 testing- if positive, would be concerned about underlying crohn's vs UC. Colonoscopy as outpatient per surgery f/up ID clinic on Jun 08, 2024. Attestations 2 Medical Necessity Statement*: per admitting Coding Level of Care Code Acute Code for Chg Fwd Diagnoses Intra-abdominal abscess K65.1 Diverticulitis of large intestine with complication K57.32
--- NOTE | 2024-05-28 15:30 | P.PN_ITS ---
Subjective 2 Subjective: - Events overnight noted *Lumbar MRI no acute findings, discussed with Dr. Rod *CT of the head ordered no acute findings *Remains afebrile -According to nurses overnight he was ab le to ambulate by himself, weakness has significantly resolved -This morning he was seen -He tells me that his strength in his le ft lower extremity has significantly resolved to some degree still a bit weak but overall improved he still has some numbness around his left buttocks, left groin but the numbness in his legs has pretty much resolved -He has good foot eversion, inversion, g ood plantar does show a flexion equal bilaterally, good strength the anterior posterior compartment below the knee, good strength in the anterior posterior compartment above the knee, good thigh strength -On examination he does have numbness ar ound the left buttocks, left groin but significantly improved compared to yesterday but still noticeable -Still having some abdominal pain, drain was placed yesterday he does bother him around the site he tells me -No other focal neurologic deficit no fa cial droop no slurring of words no focal weakness, no blurry vision, no slurring of his words Vitals/I&O/Wt Last Vital Signs Temp 97.7 F 05/28/24 12:00 Pulse 98 05/28/24 12:00 Resp 18 05/28/24 14:10 BP 154/97 05/28/24 12:00 Pulse Ox 98 05/28/24 12:00 O2 Del Method Room Air 05/28/24 12:00 05/28/24 05/28/24 05/28/24 06:59 14:59 22:59 Intake Total 360 / 2445 691 / 691 Output Total 700 / 1225 Balance -340 / 1220 691 / 691 Weight last 48 hrs Weight 85.638 kg Weight 85.865 kg Physical Exam 2 Const: COMMON NORMALS: no acute distress and patient oriented x3 Resp: COMMON NORMALS: normal respiratory effort, No retractions, No use of accessory muscles and clear to auscultation bilaterally AUSCULTATION: clear to auscultation bilaterally Cardio: COMMON NORMALS: regular rate, regular rhythm, S1 normal heart sound present and S2 normal heart sound present RATE: regular rate RHYTHM: r egular rhythm HEART SOUNDS: S1 normal heart sound present and S2 normal heart sound present GI: COMMON NORMALS: Normal to inspection, nondistended, normoactive bowel sounds present and non-tender Extremity: COMMON NORMALS: no pedal edema Neuro: COMMON NORMALS: patient oriented x3, CN's II-XII intact bilaterally and moves all extremities OTHER: Left lower extremity strength significantly resolved Psych: COMMON NORMALS: mental status grossly normal Data 05/28/24 05:03 05/28/24 05:03 A&P Assessment and plan (1) Diverticulitis: 1 week history of fever and abdominal pain that has recently become diffuse and more severe CBC shows leukocytosis with neutrophilic predominance CT/CT abdomen pelvis w con* [id number] IMPRESSION: 1. Again seen are findings of perforated diverticulitis with poorly formed fluid collection/abscess measuring 6.4 x 6.7 x 8.5 cm with a small amount of internal fluid and mostly air with air-fluid level. Small amount of associated free fluid in the pelvis. 2. No hydronephrosis in either kidney. 3. Diffuse fatty infiltration of the liver. Serial abdominal exams Currently on meropenem oxycodone 5 mg every 4 hours as needed, 2 mg IV push morphine every 12 hours as needed for breakthrough pain Blood culture obtained as below, no growth so far Repeat CT scan pelvis with IV contrast CT/CT abdomen pelvis w con* [id number] IMPRESSION: 1. Interval improvement in the fluid collection mostly containing air today adjacent to the sigmoid colon. Collection today measures 4.0 x 3.9 x 5.9 cm with only a small amount of dependent fluid improved from previous. 2. Improved but persistent changes of acute diverticulitis. 3. Small amount of free fluid in the pelvis appears slightly improved. 4. No other significant changes. Status post drain placement to sigmoid abscess CT/CT guided drainage [id number] IMPRESSION: 1. Uncomplicated 10 Kisw[place]ili pigtail drainage catheter in the sigmoid abscess. 2. There is an open communication between the sigmoid and the sigmoid abscess. Oral contrast that was given earlier the same day demonstrates a tract communicating between the sigmoid and the abscess. -Cultures collected from drain -Currently drain in place, feculent material in the bag Infectious disease consultation (2) Intra-abdominal abscess: (3) Left leg weakness: -transient left leg weakness, with paresthesia, numbness - Weakness has resolved, able to ambulate to the bathroom by himself -[id number]-[id number] normal bilaterally -Continues to have some numbness around left buttocks, left groin although significantly improved compared to yesterday but noticeable compared to the right -No other focal neurologic deficits Lumbar MRI MR/MR lumbar spine wo con* [id number] IMPRESSION: 1. No cord compression or mass identified. No displacement of the nerve roots. 2. L4-5: Broad-based central disc protrusion contacting the traversing L5 nerve roots with slight displacement. Mild subarticular recess and foraminal stenosis. Head CT CT/CT head wo con* [id number] IMPRESSION: 1. No evidence of intracranial hemorrhage or mass effect. 2. Normal headley-white differentiation. 3. No acute intracranial findings. CT/CT head wo con* [id number] IMPRESSION: 1. No evidence of intracranial hemorrhage or mass effect. 2. Normal headley-white differentiation. 3. No acute intracranial findings. Repeat CT scan abdomen pelvis Tubes, catheters and devices: Interval placement of a percutaneous drainage catheter in the previously seen diverticular abscess, now completely resolved with a small amount of residual extraluminal gas and phlegmonous change. Small amount of free pelvic fluid. No convincing organized collection at this time. MELLISSA CONCLUSIONS Normal ABIs bilaterally. No significant arterial obstruction in the left lower extremity based on the above findings PLAN -Etiology, possible irritation of L1-L5 nerve root as etiology -Continue PT OT -Continue Decadron -Continue inpatient monitoring Plan Full code Lovenox for DVT prophylaxis Attestations 2 Medical Necessity Statement*: Patient requires hospitalization for transient left leg weakness, diverticular abscess status post drain placement Diagnoses Diverticulitis K57.92 Intra-abdominal abscess K65.1 Left leg weakness R29.898
--- NOTE | 2024-05-28 15:40 | PC.OT ---
OT evaluation attempted with pt stating he was in too much pain and unable to move this morning. OT evaluation attempted again this afternoon with pt unavailable. Will attempt again at later time.
[2024-05-28] MEDS: sodium chloride 0.9% 1,000 ML 75 ML IV (16:36)
--- NOTE | 2024-05-28 18:53 | MR_ITS ---
WS: [id number] MRI LUMBAR SPINE NONCONTRAST HISTORY: cauda equina syndrome?, recent sigmoid drain placement abscess. COMPARISON: CT lumbar spine 05/27/2024 TECHNIQUE: Sagittal and axial multisequence imaging is submitted. Slight straightening and reversal of the normal cervical lordosis is noted on the sugar presser localizer. Posterior lumbar alignment is normal. Disc spaces and vertebral body heights are well-preserved. Conus terminates normally at L1-2 disc level. No mass effect or displacement of nerve roots. L1-L2: Normal. L2-L3: Mild facet arthritis. Very slight encroachment upon the foramina. L3-L4: Mild disc bulging encroaching upon the subarticular recesses. No high-grade stenosis or disc p rotrusion. Small amount of fluid in the facet joints. L4-L5: Mild annular disc bulging with broad-based central disc protrusion contacting the traversing L 5 nerve roots with slight displacement. Mild facet and ligamentum flavum hypertrophy. Mild bilateral foraminal stenosis. L5-S1: Tiny central disc protrusion. No stenosis. Small cysts within the LEFT kidney measures 1.3 cm. No abnormalities noted along the psoas muscles as visualized. MR/MR lumbar spine wo con* [id number] IMPRESSION: 1. No cord compression or mass identified. No displacement of the nerve roots. 2. L4-5: Broad-based central disc protrusion contacting the traversing L5 nerv e roots with slight displacement. Mild subarticular recess and foraminal stenos is.
[2024-05-28] MEDS: trazodone 50 mg Tablet PO (20:53)
[2024-05-28] MEDS: blistex lip oint 7 gm Tube 1 APPLIC TOPICAL (23:19)
[2024-05-28] MEDS: metoclopramide 5 mg/mL SDV 2 mL IVP (23:19)
[2024-05-29] VITALS (10 sets, daily range): BP systolic 116–135; BP diastolic 70–81; PULSE 56–72; RESP 15–18; TEMP 36.7; O2SAT 95–97
[2024-05-29] MEDS: oxyCODONE 5 mg IR Tab/Cap PO ×3 (00:56→12:21)
[2024-05-29] MEDS: dexamethasone 10 mg/mL INJ IVP ×2 (01:53→08:10)
[2024-05-29] MEDS: diphenhydrAMINE 50 mg/mL SDV 1mL 25 MG IVP (01:53)
[2024-05-29 04:16] LABS: Alanine Aminotransferase 29 U/L (0-41); Albumin Level 3.4 g/dL (3.5-5.2); Alkaline Phosphatase 55 U/L (40-130); Anion Gap 13.1 (5-19); Aspartate Amino Transferase 23 U/L (0-40); Blood Urea Nitrogen 11 mg/dL (6-20); C Reactive Protein 7.7 mg/L (0.0-4.9); Calcium 9.3 mg/dL (8.5-10.5); Carbon Dioxide 27 mmol/L (22-29); Chloride 107 mmol/L (98-107); Creatinine Clr Calc Pharmacy 192.1693; Globulin 3.4 g/dL (1.3-4.6); Glucose 150 mg/dL (65-115); Osmolality Calculated 298 mOsm/kg (285-295); Potassium 4.1 mmol/L (3.5-5.1); Procalcitonin 0.05 ng/mL (0-0.5); Sodium 143 mmol/L (136-145); Total Bilirubin 0.5 mg/dL (0.15-1.2); Total Protein 6.8 g/dL (6.6-8.7)
[2024-05-29 04:18] LABS: Basophils # 0.1 10^3/uL (0.0-0.1); Basophils % 0.2 %; Hematocrit 37.6 % (37-53); Lymphocytes # 1.6 10^3/uL (0.8-4.8); Lymphocytes % 5.9 %; Mean Corpuscular Hemoglobin 31.5 pg (27-33); Mean Corpuscular Volume 92.6 fl (82-101); Mean Platelet Volume 9.8 fL (7.4-10.4); Monocytes # 0.9 10^3/uL (0.2-0.9); Monocytes % 3.3 %; Neutrophils # 23.77 10^3/uL (1.8-7.7); Nucleated Red Blood Cells % 0 %; Platelet Count 534 10^3/cmm (157-399); Red Blood Count 4.06 10^6/uL (3.85-5.65); Red Cell Distribution Width 11.9 % (12.1-15.1); White Blood Count 26.71 10^3/uL (3.29-11.43)
[2024-05-29 04:25] LABS: HIV 1 & 2 Antibody Non-Reactive (Non-Reactiv); HIV 1 & 2 Antigen Non-Reactive (Non-Reactiv)
[2024-05-29 04:34] LABS: Hepatitis A Antibody IgM Non-Reactive (Nonreactive); Hepatitis B Core AB, Total Non-Reactive (Nonreactive); Hepatitis B Surface AB < 3.5 (11.5-1000); Hepatitis B Surface Antigen Non-Reactive (Nonreactive); Hepatitis C Virus Antibody Non-Reactive (Nonreactive)
[2024-05-29] MEDS: meropenem 1,000 mg SDV 1000 MG IVP ×2 (06:14→15:24)
[2024-05-29] MEDS: ketorolac 30 mg/mL INJ IVP (06:15)
[2024-05-29] MEDS: cloNIDine 0.1 mg Tablet PO ×2 (06:15→15:24)
[2024-05-29] MEDS: amlodipine 10 mg Tablet PO (08:10)
[2024-05-29] MEDS: pantoprazole 40 mg SDV IVP (10:33)
[2024-05-29] MEDS: enoxaparin 40 mg/0.4 mL Syringe SUBCUT (10:34)
--- NOTE | 2024-05-29 14:49 | P.DS_ITS ---
Discharge Providers Date of Admission: 05/21/24 11:35 Date of Discharge: May 29, 2024 Attending Provider at Admission: Tomas Anderson MD Attending Provider at Discharge: Michael Meyer MD Primary Care Provider: Destiny Young MD Diagnoses at Discharge Discharge Diagnosis (1) Diverticulitis: Status: Acute (2) Intra-abdominal abscess: Status: Acute (3) Left leg weakness: Status: Acute Reason for Visit Reason for Visit: Pain in lower right flank, cnnt eat or drink Hospital Course Hospital Course This is a 38-year-old male who presents [facility] for abdominal pain Patient was admitted to [facility] for perforated diverticulitis, with intra-abdominal abscess was monitored as inpatient, kept n.p.o., IV fluids, IV pain medication, broad-spectrum antibiotic therapy general surgery was consulted. Patient had slow clinical progress, remained afebrile, blood cultures so far no growth, however continued to have persistent abdominal pain requiring frequent IV pain medication, required repeat CT scans to follow clinical progress. Overall patient's clinical condition improved, patient underwent pigtail drain placement for sigmoid abscess, repeat CT scan shows decrease size of the abscess, discharged home with sigmoid abscess drain in place, with a close follow-up with general surgery as outpatient, 07/31/2023. Patient was discharged with 2 weeks of ertapenem, midline placed. Follow-up with infectious disease 06/08/2024. On discharge patient is having bowel movements, abdominal pain is well-controlled, tolerating p.o. diet, no recurrent nausea, vomiting, ambulatory remains afebrile, abscess cultures currently pending. Patient's hospitalization was complicated by: -transient left leg weakness, with paresthesia, numbness - Weakness has resolved, able to ambulate to the bathroom by himself -Wyhr-di-pzzi normal bilaterally -Continues to have some numbness around left buttocks, left groin although significantly improved compared to yesterday but noticeable compared to the right -No other focal neurologic deficits Lumbar MRI MR/MR lumbar spine wo con* [id number] IMPRESSION: 1. No cord compression or mass identified. No displacement of the nerve roots. 2. L4-5: Broad-based central disc protrusion contacting the traversing L5 nerve roots with slight displacement. Mild subarticular recess and foraminal stenosis. Head CT CT/CT head wo con* [id number] IMPRESSION: 1. No evidence of intracranial hemorrhage or mass effect. 2. Normal headley-white differentiation. 3. No acute intracranial findings. CT/CT head wo con* [id number] IMPRESSION: 1. No evidence of intracranial hemorrhage or mass effect. 2. Normal headley-white differentiation. 3. No acute intracranial findings. Repeat CT scan abdomen pelvis Tubes, catheters and devices: Interval placement of a percutaneous drainage catheter in the previously seen diverticular abscess, now completely resolved with a small amount of residual extraluminal gas and phlegmonous change. Small amount of free pelvic fluid. No convincing organized collection at this time. MELLISSA CONCLUSIONS Normal ABIs bilaterally. No significant arterial obstruction in the left lower extremity based on the above findings -Etiology, possible irritation of lumbosacral plexus -Received Decadron as inpatient ? Received steroid therapy as inpatient ? Overall clinical status improved ? Patient's symptomatology has resolved, no left lower extremity weakness, he is ambulatory, no left lower extremity numbness, no numbness of his groin or his buttocks, no new urinary continence, no bowel incontinence, no saddle anesthesia, no perineal anesthesia, -Follow-up with Dr. Rod as outpatient Physical Exam Const: COMMON NORMALS: no acute distress and patient oriented x3 Resp: COMMON NORMALS: normal respiratory effort, No retractions, No use of accessory muscles and clear to auscultation bilaterally AUSCULTATION: clear to auscultation bilaterally Cardio: COMMON NORMALS: regular rate, regular rhythm, S1 normal heart sound present and S2 normal heart sound present RATE: regular rate RHYTHM: regular rhythm HEART SOUNDS: S1 normal heart sound present and S2 normal heart sound present GI: COMMON NORMALS: Normal to inspection, nondistended, normoactive bowel sounds present and non-tender OTHER: Left lower quadrant abdominal drain in place Extremity: COMMON NORMALS: no pedal edema Neuro: COMMON NORMALS: patient oriented x3, CN's II-XII intact bilaterally, moves all extremities, no focal motor deficits and no sensory deficits noted OTHER: Left lower extremity no significant weakness, strength equal bilaterally, at the level of the foot, good strength for foot dorsal flexion, extension, eversion, inversion, good strength below the knee, good strength above the knee, no numbness throughout the leg, no numbness of the left buttocks, no numbness of the left groin, is ambulatory Psych: COMMON NORMALS: mental status grossly normal Discharge Data Studies Completed and Pending Completed Studies During Hospitalization Category Date Time Status CT abdomen pelvis w con* [id number] Routine Cat Scan 05/24/24 08:[address] abdomen pelvis w con* [id number] Routine Cat Scan 05/27/24 08:[address] abdomen pelvis w con* [id number] Stat Cat Scan 05/21/24 07:[address] abdomen pelvis wo con [id number] Routine Cat Scan 05/27/24 18:[address] guided drainage [id number] Routine Cat Scan 05/27/24 13:[address] head wo con* [id number] Stat Cat Scan 05/28/24 07:49 Completed XR KUB portable [id number] Stat Exams 05/22/24 09:38 Completed XR chest 1V portable [id number] Stat Exams 05/22/24 09:38 Completed MR lumbar spine wo con* [id number] Stat MRI 05/28/24 18:53 Completed US arterial duplex lower extremity LT [CV arterial Ultrasound 05/27/24 19:11 [place] [id number]] Stat Pending at discharge Category Date Time Status WILL Profile Rheumatology AM LABS Lab 05/29/24 02:36 Received ANCA [Anti-Neutrophil Cytoplasmic AB] AM LAB[facility] Lab 05/29/24 02:36 Received Abscess Culture and Gram Stain Routine Lab 05/27/24 15:05 Results CCP [Cyclic Citrullinated Peptide] AM LABS Lab 05/29/24 02:36 Received HLA-B27 AM LABS Lab 05/29/24 02:36 Received Radiology Impressions Chest X-Ray 05/22/24 09:38 IMPRESSION: 1. No acute cardiopulmonary abnormality identified. KUB X-Ray 05/22/24 09:38 IMPRESSION: 1. Nonspecific but nonobstructive appearing bowel gas pattern. 2. Again noted, borderline splenic enlargement. . Abscess Drainage CT 05/27/24 13:06 IMPRESSION: 1. Uncomplicated 10 [place] pigtail drainage catheter in the sigmoid abscess. 2. There is an open communication between the sigmoid and the sigmoid abscess. Oral contrast that was given earlier the same day demonstrates a tract communicating between the sigmoid and the abscess. Abdomen/Pelvis CT 05/27/24 18:58 IMPRESSION: 1. Interval placement of a percutaneous drainage catheter in the previously seen diverticular abscess, now completely resolved with a small amount of residual extraluminal gas and phlegmonous change. No convincing organized collection at this time. 2. Additional findings, as above. Lumbar Spine CT 05/27/24 18:58 IMPRESSION: No CT evidence of acute lumbar spine pathology. Head CT 05/28/24 07:49 IMPRESSION: 1. No evidence of intracranial hemorrhage or mass effect. 2. Normal headley-white differentiation. 3. No acute intracranial findings. Notified Michael Meyer MD at 05/28/2024 8:55 AM. Lumbar Spine MRI 05/28/24 18:53 IMPRESSION: 1. No cord compression or mass identified. No displacement of the nerve roots. 2. L4-5: Broad-based central disc protrusion contacting the traversing L5 nerve roots with slight displacement. Mild subarticular recess and foraminal stenosis. Laboratory Results WBC 26.71 10^3/uL (3.29-11.43) H 05/29/24 02:36 RBC 4.06 10^6/uL (3.85-5.65) 05/29/24 02:36 Hgb 12.80 g/dL (11.27-16.99) 05/29/24 02:36 Hct 37.6 % (37-53) 05/29/24 02:36 MCV 92.6 fl (82-101) 05/29/24 02:36 MCH 31.5 pg (27-33) 05/29/24 02:36 MCHC 34.0 g/dL (30-55) 05/29/24 02:36 RDW 11.9 % (12.1-15.1) L 05/29/24 02:36 Plt Count 534 10^3/cmm (157-399) H 05/29/24 02:36 MPV 9.8 fL (7.4-10.4) 05/29/24 02:36 Neut % (Auto) 89.0 % 05/29/24 02:36 Lymph % (Auto) 5.9 % 05/29/24 02:36 Nobles % (Auto) 3.3 % 05/29/24 02:36 Eos % (Auto) 0.0 % 05/29/24 02:36 Baso % (Auto) 0.2 % 05/29/24 02:36 Neut # (Auto) 23.77 10^3/uL (1.8-7.7) H 05/29/24 02:36 Lymph # (Auto) 1.6 10^3/uL (0.8-4.8) 05/29/24 02:36 Nobles # (Auto) 0.9 10^3/uL (0.2-0.9) 05/29/24 02:36 Eos # (Auto) 0.0 10^3/uL (0.0-0.8) 05/29/24 02:36 Baso # (Auto) 0.1 10^3/uL (0.0-0.1) 05/29/24 02:36 Nucleated RBC % (auto) 0 % 05/29/24 02:36 Nucleated RBCs # 0.0 /100WBC 05/29/24 02:36 ESR 31 mm/hr (0-10) H 05/27/24 05:10 Sodium 143 mmol/L (136-145) 05/29/24 02:36 Potassium 4.1 mmol/L (3.5-5.1) 05/29/24 02:36 Chloride 107 mmol/L (98-107) 05/29/24 02:36 Carbon Dioxide 27 mmol/L (22-29) 05/29/24 02:36 Anion Gap 13.1 (5-19) 05/29/24 02:36 BUN 11 mg/dL (6-20) 05/29/24 02:36 Creatinine 0.6 mg/dL (0.7-1.2) L 05/29/24 02:36 GFR Calculation 150.0 mL/min (90-130) H 05/29/24 02:36 Glucose 150 mg/dL (65-115) H 05/29/24 02:36 POC Glucose 140 mg/dL (70-110) H 05/26/24 15:33 Calculated Osmolality 298 mOsm/kg (285-295) H 05/29/24 02:36 Lactic Acid 1.7 mmol/L (0.5-2.2) 05/21/24 07:55 Calcium 9.3 mg/dL (8.5-10.5) 05/29/24 02:36 Phosphorus 2.4 mg/dL (2.5-4.5) L 05/25/24 05:00 Magnesium 2.2 mg/dL (1.7-2.3) 05/26/24 11:03 Total Bilirubin 0.5 mg/dL (0.15-1.2) 05/29/24 02:36 AST 23 U/L (0-40) 05/29/24 02:36 ALT 29 U/L (0-41) 05/29/24 02:36 Alkaline Phosphatase 55 U/L (40-130) 05/29/24 02:36 Creatine Kinase 97 U/L (39-308) 05/27/24 05:10 C-Reactive Protein 7.7 mg/L (0.0-4.9) H 05/29/24 02:36 Total Protein 6.8 g/dL (6.6-8.7) 05/29/24 02:36 Albumin 3.4 g/dL (3.5-5.2) L 05/29/24 02:36 Globulin 3.4 g/dL (1.3-4.6) 05/29/24 02:36 Lipase 16 U/L (13-60) 05/21/24 07:55 Procalcitonin 0.05 ng/mL (0-0.5) 05/29/24 02:36 Urine Color Yellow (Yellow) 05/21/24 08:14 Urine Appearance Cloudy (CLEAR) A 05/21/24 08:14 Urine pH 8.0 (5-7) A 05/21/24 08:14 Ur Specific [place] 1.019 (1.005-1.030) 05/21/24 08:14 Urine Protein Negative (Negative) 05/21/24 08:14 Urine Glucose (UA) Negative (Normal) 05/21/24 08:14 Urine Ketones 3+ (Negative) H 05/21/24 08:14 Urine Blood Negative (Negative) 05/21/24 08:14 Urine Nitrate Negative (Negative) 05/21/24 08:14 Urine Bilirubin Negative (Negative) 05/21/24 08:14 Urine Urobilinogen 1.0 mg/dL (Negative) 05/21/24 08:14 Ur Leukocyte Esterase Trace (Negative) A 05/21/24 08:14 Urine RBC 0-2 /hpf (0-2) 05/21/24 08:14 Urine WBC 0-5 /hpf (0-5) 05/21/24 08:14 Ur Squamous Epith Cells 0-5 /hpf (0-5) 05/21/24 08:14 Amorphous Sediment Not Reportable 05/21/24 08:14 Urine Bacteria None seen /hpf (NONE) 05/21/24 08:14 Hyaline Casts 0.40 /lpf 05/21/24 08:14 Rheumatoid Factor 10.0 IU/mL (0-14) 05/29/24 02:36 Hepatitis A IgM Ab Non-reactive (Nonreactive) 05/29/24 02:36 Hep Bs Antigen Non-reactive (Nonreactive) 05/29/24 02:36 Hep Bs Antibody < 3.5 (11.5-1000) L 05/29/24 02:36 Hep B Core Total Ab Non-reactive (Nonreactive) 05/29/24 02:36 Hepatitis C Antibody Non-reactive (Nonreactive) 05/29/24 02:36 HIV 1&2 Ab & HIV 1 Ag Non-reactive (Non-Reactiv) 05/29/24 02:36 HIV 1&2 Antibody Non-reactive (Non-Reactiv) 05/29/24 02:36 Vitals Last Vital Signs Temp 98.0 F 05/29/24 11:44 Pulse 72 05/29/24 11:44 Resp 16 05/29/24 12:21 BP 135/77 05/29/24 11:44 Pulse Ox 96 05/29/24 12:21 O2 Del Method Room Air 05/29/24 11:44 Discharge Plan Discharge Patient Disposition: Home Condition: Stable Prescriptions: New oxycodone 5 mg tablet 5 mg PO Q6H PRN (Reason: pain) 7 Days Qty: 28 0RF amlodipine 10 mg Tablet 10 mg PO DAILY 30 Days Qty: 30 0RF clonidine HCl 0.1 mg Tablet 0.1 mg PO Q12H 30 Days Qty: 60 0RF ondansetron HCl 4 mg tablet 4 mg PO Q6H PRN (Reason: nausea and vomiting) 7 Days Qty: 28 0RF Discontinued naproxen sodium [Aleve] 220 mg Tablet 220 mg PO BID PRN (Reason: Pain) bisacodyl [Dulcolax (bisacodyl)] 5 mg Tablet,Delayed Release (Dr/Ec) 5 mg PO DAILY PRN (Reason: Constipation) polyethylene glycol 3350 [Miralax] 17 gram/dose Powder 17 g PO DAILY PRN (Reason: Constipation) Ultima C 1 cap PO DAILY Discharge Orders: Discharge Order (Routine); Ordered 05/29/24 Ordered By: Michael Meyer Other Ambulatory Orders: Miscellaneous Procedure (Order) Location: None Selected Ordered By: Michael Meyer Referrals: [facility] [Provider Group] - 06/08/24 10:00 am Destiny Young MD [Primary Care Provider] - Iain Pearce DO [Physician] - 05/31/24 Discharge Diet: As Directed Discharge Activity: Resume usual activity Patient Instructions: Acute Wound Care (DC), GI (Gastrointestinal) Soft Diet (ED), Opioid Safety Activity Restrictions/Additional Instructions: - If you develop worsening left lower extremity weakness please go to the emergency room -If you have worsening abdominal pain go to the emergency room -I would continue full liquids tonight, and try a GI soft diet for tomorrow -Continue to remain ambulatory -Please follow with Dr. Pearce on Friday -See your primary care provider next week -Follow-up with infectious disease Discharge Attestations Time Spent in Discharge Care*: greater than 30 min Quality Metrics Clinical Quality Measures [ No reported AMI, CVA or VTE this stay] Coding Level of Care Code 54758 Total time (in minutes) for Discharge: 45 Diagnoses Diverticulitis K57.92 Intra-abdominal abscess K65.1 Left leg weakness R29.898
--- NOTE | 2024-05-29 17:57 | PC.NURSE ---
Patient's IV removed. Patient ambulated around [place]. Patient's discharge paperwork was discussed with patient. All questions were answered. Patient ambulated to exit with this nurse. Patient to call his ride.
[2024-05-31 12:06] LABS: Cyclic Citrullinated Peptide <16 UNITS
[2024-05-31 13:20] LABS: COMPLEMENT, TOTAL (CH50) 55 U/mL (31-60)
[2024-05-31 14:50] LABS: ANA SCREEN, IFA NEGATIVE (NEGATIVE)
[2024-05-31 17:14] LABS: CENTROMERE B ANTIBODY <1.0 NEG AI (<1.0 NEG); JO-1 ANTIBODY <1.0 NEG AI (<1.0 NEG); RNP ANTIBODY <1.0 NEG AI (<1.0 NEG); SCL-70 ANTIBODY <1.0 NEG AI (<1.0 NEG); SJOGREN'S ANTIBODY (SS-A) <1.0 NEG AI (<1.0 NEG); SM ANTIBODY <1.0 NEG AI (<1.0 NEG); SS-B <1.0 NEG AI (<1.0 NEG)
[2024-05-31 21:18] LABS: HLA-B27 NEGATIVE (NEGATIVE)
== END 2024-05-29 17:45 | disposition home or self-care (01) | DRG 391 ==
LOC: ER 10:13 → MEDSURG 11:35
PROVIDERS: Radiology Diagnostic Radiology; Student in an Organized Health Care Education/Training Program; Surgery; Admitting Provider Internal Medicine; Emergency Provider Emergency Medicine; PCP Family Medicine; Visit Provider Family Medicine
PROC: 0D9N30Z Drainage of Sigmoid Colon with Drainage Device, Percutaneous Approach (ICD-10-PCS; CPT 75989; principal; 2024-05-27 14:00)
DX: K57.20 Diverticulitis of large intestine with perforation and abscess without bleeding (principal); K65.1 Peritoneal abscess; R20.2 Paresthesia of skin; R20.0 Anesthesia of skin; R53.1 Weakness
CPT/HCPCS: 36415; 36416; 36569; 70450; 71045; 72148; 74018; 74176; 74177; 75989; 80048; 80053; 81001; 82550; 82962; 83605; 83690; 83735; 84100; 84145; 85025; 85651; 86036; 86140; 86160; 86162; 86200; 86235; 86255; 86376; 86431; 86705; 86706; 86709; 86803; 86812; 87040; 87070; 87075; 87077; 87186; 87205; 87340; 87806; 93926; 96365; 96372; 96375; 96376; 97116; 97161; 97165; 99285; C1751; J1100; J1171; J1200; J1650; J1885; J2060; J2185; J2250; J2270; J2405; J2470; J2543; J2550; J2765; J3010; J3480; J7030

== ENCOUNTER 2024-06-01 07:39 | Inpatient (IN) | payer BC, MEDICAID, SELFPAY ==
[2024-06-01] VITALS (29 sets, daily range): BP systolic 123–190; BP diastolic 71–112; PULSE 51–115; RESP 16–20; TEMP 36.6–36.9; O2SAT 97–100; BMI 22.6
--- NOTE | 2024-06-01 08:19 | CTR_ITS ---
PROCEDURE INFORMATION: Exam: CT Abdomen And Pelvis With Contrast Exam date and time: 06/01/2024 8:55 AM Age: 38 years old Clinical indication: Abdominal pain; Localized; Lower; Additional info: Abd pain TECHNIQUE: Imaging protocol: Computed tomography of the abdomen and pelvis with contrast. Radiation optimization: All CT scans at this facility use at least one of these dose optimization techniques: automated exposure control; mA and/or kV adjustment per patient size (includes targeted exams where dose is matched to clinical indication); or iterative reconstruction. Contrast material: OMNI 350; Contrast volume: 100 ml; Contrast route: INTRAVENOUS (IV); COMPARISON: CT abdomen pelvis wo con [id number] 05/27/2024 7:06 PM RADIATION DOSE METRICS: Total DLP (mGy-cm): 642.56 FINDINGS: Tubes, catheters and devices: Stable pelvic drain position. Liver: A minor arterial phase perfusion defect of the hepatic left lobe medial segment is noted adjacent to the falciform ligament fissure, a normal variant. Small hepatic calcified granuloma. Gallbladder and biliary ducts: Normal. No calcified stones. No ductal dilation. Pancreas: Normal. No ductal dilation. Spleen: Normal. No splenomegaly. Adrenal glands: Normal. No mass. Kidneys and ureters: Bilateral renal benign cysts, largest on the left measuring 2.0 cm. Right renal upper pole 2.0 mm calyceal calculus. No hydronephrosis/obstructive uropathy. Stomach and bowel: Increased gas fluid collection surrounding the indwelling catheter retention loop, measuring approximately 6.4 x 4.4 x 5.9 cm, likely communicating with the sigmoid colon. This is immediately contiguous with superior otherwise normal small bowel loops. Appendix: The vermiform appendix is normal. Intraperitoneal space: Anterior upper abdominal and left upper quadrant pneumoperitoneum, increased. Vasculature: Unremarkable. No abdominal aortic aneurysm. Lymph nodes: No enlarged lymph nodes. Urinary bladder: Unremarkable as visualized. Reproductive: Unremarkable as visualized. Bones/joints: No acute abnormality identified. No acute fracture. Soft tissues: Unremarkable. CT/CT abdomen pelvis w con* [id number] IMPRESSION: 1. Increased pneumoperitoneum. 2. Persistent sigmoid diverticulitis. 3. Stable pelvic drain position. 4. Interval increase in size of pelvic abscess, consider drain malfunction. 5. Bilateral renal benign cysts. No follow-up imaging is recommended. 6. Right renal calyceal lithiasis. COMMENTS: Consistent with the [employer]'s Incidental Findings Committee white paper (J Am Frida Radiol 2018): Any incidental renal lesion less than 1 cm or classified as too small to characterize, or any incidental cystic renal lesion characterized as simple-appearing, is likely benign. No follow-up imaging is recommended for these lesions per consensus recommendations based on imaging criteria. THIS REPORT CONTAINS FINDINGS THAT MAY BE CRITICAL TO PATIENT CARE. The findings were verbally communicated by me to DR. TRINI ONEIL via telephone conference at 9:16 AM WHISKEY FILTERER on 06/01/2024. The findings were acknowledged and understood.
--- NOTE | 2024-06-01 08:20 | W.ED.ABDPA2 ---
HPI - Abdominal Pain General: Chief Complaint: Abdominal Pain Stated Complaint: abd pain, pressure and pain, pump not working Time Seen by Provider: 06/01/24 08:01 Source: patient Mode of arrival: ambulatory Limitations: no limitations History of Present Illness: 38-year-old male with recently been admitted with diverticulitis and had an abscess he had a drain placed here still in place he also has a PICC line has been on IV antibiotics he states that the drain is quite draining and he is having severe abdominal pain he states he is also had some vomiting he denies any fevers he rates his pain a 8 out of 10. Associated Symptoms: Denies chills, diarrhea, fever(s), nausea and vomiting Related Data Previous Rx's Medication Instructions Recorded amlodipine 10 mg tablet 10 mg PO DAILY 30 days #30 tabs 05/29/24 clonidine HCl 0.1 mg tablet 0.1 mg PO Q12H 30 days #60 tabs 05/29/24 dexamethasone 6 mg tablet 6 mg PO Q24H 4 days #4 tabs 05/29/24 ondansetron HCl 4 mg tablet 4 mg PO Q6H PRN nausea and 05/29/24 vomiting 7 days #28 tabs oxycodone 5 mg tablet 5 mg PO Q6H PRN pain 7 days #28 05/29/24 tabs Allergies Allergy/AdvReac Type Severity Reaction Status Date / Time tree nut Allergy Unknown Verified 05/21/24 10:33 Review of Systems Const: Denies: fever(s), chills, body aches or change in appetite ENMT: Denies: throat pain or dental pain Card: Denies: chest pain Resp: Denies: dyspnea GI: Reports: abdominal pain; Denies: nausea, vomiting or diarrhea Musc: Denies: neck pain or back pain Skin/Breast: Denies: rash Neuro: Denies: headache(s) PFSH ED PFSH: Family History Father Prostate cancer Social History Smoking and tobacco/nicotine status: never used tobacco/nicotine Alcohol intake: never Sexually active: No Do you think of yourself as: Straight/Heterosexual Physical Exam Const: COMMON NORMALS: no acute distress, patient oriented x3 and healthy appearing HENMT: COMMON NORMALS: normocephalic and atraumatic HEAD & SCALP: normocephalic and atraumatic Eye: COMMON NORMALS: conjunctivae normal CONJUNCTIVA: Yes conjunctivae normal Neck/C-Spine: COMMON NORMALS: full ROM and supple Chest: COMMONS NORMALS: normal inspection of the chest Resp: COMMON NORMALS: normal respiratory effort Cardio: COMMON NORMALS: regular rate, regular rhythm and No murmurs present (Cardio) RATE: regular rate RHYTHM: regular rhythm GI: COMMON NORMALS: Soft to palpation and no masses PALPATION: Yes Soft to palpation OTHER: Drain in place diffuse tenderness no erythema around the drain Extremity: COMMON NORMALS: normal to inspection and full ROM Neuro: COMMON NORMALS: patient oriented x3, moves all extremities and no focal motor deficits Psych: COMMON NORMALS: mental status grossly normal, Normal thought process present and cooperative THOUGHT PROCESS: Normal thought process present Skin: COMMON NORMALS: no rashes or lesions noted and no wounds GENERAL SKIN EXAM: no rashes or lesions noted Course Vital Signs: Vital signs: Vital Signs Temperature 98.4 F 06/01/24 08:05 Pulse Rate 82 06/01/24 09:54 Respiratory Rate 20 H 06/01/24 09:54 Blood Pressure 127/82 06/01/24 09:54 Pulse Oximetry 98 06/01/24 09:54 Oxygen Delivery Me thod Room Air 06/01/24 08:05 MDM - Abdominal Pain Medical Decision Making Patient presents for abdominal pain CT shows worsening abscess and likely perforation of his diverticulitis his white count lactate is up patient was seen in ER by surgeon will admit the ICU at this time on IV antibiotics Medical Records I reviewed the patient's medical records. Lab Data I reviewed the patient's lab results. 06/01/24 08:15 06/01/24 08:15 Labs/Radiology: Radiology Impressions Abdomen/Pelvis CT 06/01/24 08:19 IMPRESSION: 1. Increased pneumoperitoneum. 2. Persistent sigmoid diverticulitis. 3. Stable pelvic drain position. 4. Interval increase in size of pelvic abscess, consider drain malfunction. 5. Bilateral renal benign cysts. No follow-up imaging is recommended. 6. Right renal calyceal lithiasis. COMMENTS: Consistent with the [employer]'s Incidental Findings Committee white paper (J Am Frida Radiol 2018): Any incidental renal lesion less than 1 cm or classified as too small to characterize, or any incidental cystic renal lesion characterized as simple-appearing, is likely benign. No follow-up imaging is recommended for these lesions per consensus recommendations based on imaging criteria. THIS REPORT CONTAINS FINDINGS THAT MAY BE CRITICAL TO PATIENT CARE. The findings were verbally communicated by me to DR. TRINI ONEIL via telephone conference at 9:16 AM MANAGER OF MAINTENANCE on 06/01/2024. The findings were acknowledged and understood. Laboratory Results WBC 38.23 10^3/uL (3.29-11.43) H* 06/01/24 08:15 RBC 4.84 10^6/uL (3.85-5.65) 06/01/24 08:15 Hgb 14.80 g/dL (11.27-16.99) 06/01/24 08:15 Hct 43.2 % (37-53) 06/01/24 08:15 MCV 89.3 fl (82-101) 06/01/24 08:15 MCH 30.6 pg (27-33) 06/01/24 08:15 MCHC 34.3 g/dL (30-55) 06/01/24 08:15 RDW 12.3 % (12.1-15.1) 06/01/24 08:15 Plt Count 614 10^3/cmm (157-399) H 06/01/24 08:15 MPV 9.5 fL (7.4-10.4) 06/01/24 08:15 Neut % (Auto) 79.6 % 06/01/24 08:15 Lymph % (Auto) 9.3 % 06/01/24 08:15 Loving % (Auto) 7.5 % 06/01/24 08:15 Eos % (Auto) 0.7 % 06/01/24 08:15 Baso % (Auto) 0.2 % 06/01/24 08:15 Neut # (Auto) 30.46 10^3/uL (1.8-7.7) H 06/01/24 08:15 Lymph # (Auto) 3.6 10^3/uL (0.8-4.8) 06/01/24 08:15 Loving # (Auto) 2.9 10^3/uL (0.2-0.9) H 06/01/24 08:15 Eos # (Auto) 0.3 10^3/uL (0.0-0.8) 06/01/24 08:15 Baso # (Auto) 0.1 10^3/uL (0.0-0.1) 06/01/24 08:15 Nucleated RBC % (auto) 0 % 06/01/24 08:15 Nucleated RBCs # 0.0 /100WBC 06/01/24 08:15 ESR 30 mm/hr (0-10) H 06/01/24 08:15 Sodium 133 mmol/L (136-145) L 06/01/24 08:15 Potassium 3.9 mmol/L (3.5-5.1) 06/01/24 08:15 Chloride 96 mmol/L (98-107) L 06/01/24 08:15 Carbon Dioxide 22 mmol/L (22-29) 06/01/24 08:15 Anion Gap 18.9 (5-19) 06/01/24 08:15 BUN 15 mg/dL (6-20) 06/01/24 08:15 Creatinine 0.7 mg/dL (0.7-1.2) 06/01/24 08:15 GFR Calculation 125.5 mL/min (90-130) 06/01/24 08:15 Glucose 135 mg/dL (65-115) H 06/01/24 08:15 Calculated Osmolality 279 mOsm/kg (285-295) L 06/01/24 08:15 Lactic Acid 3.9 mmol/L (0.5-2.2) H 06/01/24 08:25 Calcium 9.2 mg/dL (8.5-10.5) 06/01/24 08:15 Total Bilirubin 1.4 mg/dL (0.15-1.2) H 06/01/24 08:15 AST 12 U/L (0-40) 06/01/24 08:15 ALT 21 U/L (0-41) 06/01/24 08:15 Alkaline Phosphatase 61 U/L (40-130) 06/01/24 08:15 C-Reactive Protein 66.7 mg/L (0.0-4.9) H 06/01/24 08:15 Total Protein 7.2 g/dL (6.6-8.7) 06/01/24 08:15 Albumin 3.8 g/dL (3.5-5.2) 06/01/24 08:15 Globulin 3.4 g/dL (1.3-4.6) 06/01/24 08:15 Procalcitonin 0.21 ng/mL (0-0.5) 06/01/24 08:15 All radiology interpretation(s) finalized by discharge Critical Care Time Critical Care Time: Critical Care Time: Yes Total Critical Care Time: 40 Attestation: The high probability of a clinically significant, sudden or life threatening deterioration of the patient's gi system(s) required my full and direct attention, intervention and personal management. The critical care time is as shown. This time is in addition to time spent performing any reported procedures but includes the following: [x] Data and vital sign review and interpretation [x] Patient assessment, examination and intervention [x] Documentation [x] Medication orders and management Discharge Plan Discharge Patient Disposition: Admitted As Inpatient Admit Provider: Lisha Vinson Clinical Impression: Diverticulitis of intestine with perforation and abscess Condition: Stable Coding Level of Care Code ED Maintenance Craftsman for Elba Lowe
[2024-06-01 08:32] LABS: Basophils # 0.1 10^3/uL (0.0-0.1); Basophils % 0.2 %; Eosinophils # 0.3 10^3/uL (0.0-0.8); Eosinophils % 0.7 %; Hematocrit 43.2 % (37-53); Lymphocytes # 3.6 10^3/uL (0.8-4.8); Lymphocytes % 9.3 %; Mean Corpuscular HGB Conc 34.3 g/dL (30-55); Mean Corpuscular Hemoglobin 30.6 pg (27-33); Mean Corpuscular Volume 89.3 fl (82-101); Mean Platelet Volume 9.5 fL (7.4-10.4); Monocytes # 2.9 10^3/uL (0.2-0.9); Monocytes % 7.5 %; Neutrophils # 30.46 10^3/uL (1.8-7.7); Neutrophils % 79.6 %; Nucleated Red Blood Cells % 0 %; Platelet Count 614 10^3/cmm (157-399); Red Blood Count 4.84 10^6/uL (3.85-5.65); Red Cell Distribution Width 12.3 % (12.1-15.1)
[2024-06-01] MEDS: ondansetron 2 mg/ML SDV 2 mL 4 MG IVP ×2 (08:37→15:29)
[2024-06-01] MEDS: HYDROmorphone 1 mg/mL INJ 1 mL IVP ×3 (08:37→23:47)
[2024-06-01 08:44] LABS: Erythrocyte Sedimentation Rate 30 mm/hr (0-10)
[2024-06-01 08:47] LABS: White Blood Count 38.23 10^3/uL (3.29-11.43)
[2024-06-01 08:58] LABS: Alanine Aminotransferase 21 U/L (0-41); Albumin Level 3.8 g/dL (3.5-5.2); Alkaline Phosphatase 61 U/L (40-130); Anion Gap 18.9 (5-19); Aspartate Amino Transferase 12 U/L (0-40); Blood Urea Nitrogen 15 mg/dL (6-20); C Reactive Protein 66.7 mg/L (0.0-4.9); Calcium 9.2 mg/dL (8.5-10.5); Carbon Dioxide 22 mmol/L (22-29); Chloride 96 mmol/L (98-107); Creatinine Clr Calc Pharmacy 158.6085; Globulin 3.4 g/dL (1.3-4.6); Glomerular Filtration Rate 125.5 mL/min (90-130); Glucose 135 mg/dL (65-115); Osmolality Calculated 279 mOsm/kg (285-295); Potassium 3.9 mmol/L (3.5-5.1); Sodium 133 mmol/L (136-145); Total Bilirubin 1.4 mg/dL (0.15-1.2); Total Protein 7.2 g/dL (6.6-8.7)
[2024-06-01] MEDS: iohexol 350 mg/mL 500 mL Btl (per mL) IV (08:59)
[2024-06-01 09:02] LABS: Procalcitonin 0.21 ng/mL (0-0.5)
[2024-06-01 09:32] LABS: Lactic Sepsis W/Reflex 3.9 mmol/L (0.5-2.2)
[2024-06-01] MEDS: piperacillin-tazobactam 3.375 GM in sodium chloride 0.9% (plus) 50 ML IV ×2 (09:34→16:31)
[2024-06-01] MEDS: VANCOMYCIN ADD-Vantage 1,000 MG in 0.9% NaCl ADD-Vantage 250 ML 250 MG IV ×2 (09:53→16:31)
[2024-06-01] MEDS: sodium chloride 0.9% 500 ML 999 ML IV (09:53)
[2024-06-01] MEDS: sodium chloride 0.9% 1,000 ML 999 ML IV (09:53)
--- NOTE | 2024-06-01 10:26 | P.CONIM_ITS ---
Providers/Reason For Consult 2 Consulting Physician/Specialty*: General Surgery Reason for Consult*: Perforated sigmoid diverticulitis Attending Physician: Lisha Vinson MD Primary Care Provider: Destiny Young MD History of Present Illness History of Present Illness Vickey Kirkland is a 38 year old male who presents to the ER after recently being discharged from the hospital after conservative management of a perforated sigmoid diverticulitis with abscess, patient received a drain at the end of last week and was discharged over the weekend, since then he has not been able to tolerate diet has only been able to drink some broth, has been complaining of severe abdominal pain that has been worsening over time, output of the drain has been minimal fecal in nature. Imaging done in the ER today showed evidence of perforated diverticulitis with small amount of intraperitoneal air. White count is 38. Review of Systems 2 General: Reports: 10 or more systems reviewed and unremarkable except in HPI and below Medications/Allergies Home Medications Medication Instructions Recorded Confirmed Last Taken Type amlodipine 10 mg tablet 10 mg PO DAILY 30 days #30 tabs 05/29/24 06/01/24 05/31/24 Rx clonidine HCl 0.1 mg tablet 0.1 mg PO Q12H 30 days #60 tabs 05/29/24 06/01/24 05/31/24 Rx dexamethasone 6 mg tablet 6 mg PO Q24H 4 days #4 tabs 05/29/24 06/01/24 06/01/24 Rx ondansetron HCl 4 mg tablet 4 mg PO Q6H PRN nausea and 05/29/24 06/01/24 06/01/24 Rx vomiting 7 days #28 tabs oxycodone 5 mg tablet 5 mg PO Q6H PRN pain 7 days #28 05/29/24 06/01/24 06/01/24 Rx tabs Allergies Allergy/AdvReac Type Severity Reaction Status Date / Time tree nut Allergy Unknown Verified 05/21/24 10:33 Current Medications Generic Name Dose Route Start Last Admin Trade Name Freq PRN Reason Stop Dose Admin Sodium Chloride 1,000 mls @ 999 mls/hr 06/01/24 09:45 06/01/24 09:53 Sodium Chloride 0.9% IV 06/01/24 11:45 999 mls/hr .Q1H1M VALENTE Administration PFSH Acute 2 PFSH: Family History Father Prostate cancer Social History Smoking and tobacco/nicotine status: never used tobacco/nicotine Alcohol intake: never Sexually active: No Do you think of yourself as: Straight/Heterosexual Vitals/I&O/Wt Last Vital Signs Temp 98.4 F 06/01/24 08:05 Pulse 82 06/01/24 09:54 Resp 20 H 06/01/24 09:54 BP 127/82 06/01/24 09:54 Pulse Ox 98 06/01/24 09:54 O2 Del Method Room Air 06/01/24 08:05 05/31/24 06/01/24 06/01/24 22:59 06:59 14:59 Intake Total 50 / 50 Balance 50 / 50 Weight last 48 hrs Weight 172 lb Physical Exam 2 GI: OTHER: Abdomen is soft, there is tenderness consistent with peritonitis in the lower abdomen. Rebound tenderness in the lower abdomen none in the upper abdomen. Data 06/01/24 08:15 06/01/24 08:15 A&P Assessment and plan (1) Diverticulitis of intestine with perforation and abscess: (2) Sepsis: Plan After complete history and physical examination and review of all available clinical data the following is my assessment. Patient presents with worsening of his known perforated sigmoid diverticulitis, white count is 38, patient's peritonitic, at this time and attempts of conservative management have failed, patient will require exploratory laparotomy with Raquel procedure, patient was informed of the findings, he agrees with the plan. I discussed all recent benefits of the operation with the patient, I explained to the patient that he will require an ostomy, he may require open abdomen, there is an increased risk for injuring adjacent structures including the small bowel the colon the vessels of the mesentery and the ureter due to significant inflammation that now has been there for more than a week, have explained to the patient that there is chance of bleeding infection intra-abdominal abscess need for additional operations, enterocutaneous or enteroenteric fistula creation. Patient shows understanding he agrees with the plan. We will request hospitalist management as patient currently presents in sepsis, will start broad-spectrum antibiotics, will start resuscitation with fluids current lactate level is more than 3. -For ex lap today -Broad-spectrum antibiotics -All other management per hospitalist team. Coding Level of Care Code Acute Code for Chg Fwd Diagnoses Diverticulitis of intestine with perforation and abscess K57.80 Sepsis A41.9
[2024-06-01 10:42] LABS: Reflex Lactate Order REFLEX LACTIC ORDERD
--- NOTE | 2024-06-01 10:42 | P.ANESASSM_ITS ---
Pre-Anesthetic Assessment Height/Weight: Height 1.85 m Weight 78.018 kg Temp Pulse Resp BP Pulse Ox O2 Del Method 98.4 F 90 20 H 163/92 98 Room Air 06/01/24 08:05 06/01/24 10:29 06/01/24 09:54 06/01/24 10:29 06/01/24 10:29 06/01/24 08:05 Operation Date: 06/01/24 11:10 Proposed Procedures p Exploratory Laparotomy(Not Applicable) - Lukasz Keating MD Familial anesthetic complications: None Was Beta Du taken within 24 hours: N/A Was Clonidine taken within 24 hours: Yes Last intake: Yogurt at 0700 Social No alcohol and No tobacco Exam alert, oriented x 3, clear to auscultation bilaterally and regular rate & rhythm Airway Mallampati: Class II Dentition: other (implants) CV/HEM Hypertension GI hiatal hernia intestinal abscess Metabolic septic Anesthetic Plan ASA status: 3E Anesthesia: General Other: RSI Risk of > 500 ml blood loss (7ml/kg in children): No Medications/Allergies Home Medications Medication Instructions Recorded Confirmed Last Taken Type amlodipine 10 mg tablet 10 mg PO DAILY 30 days #30 tabs 05/29/24 06/01/24 05/31/24 Rx clonidine HCl 0.1 mg tablet 0.1 mg PO Q12H 30 days #60 tabs 05/29/24 06/01/24 05/31/24 Rx dexamethasone 6 mg tablet 6 mg PO Q24H 4 days #4 tabs 05/29/24 06/01/24 06/01/24 Rx ondansetron HCl 4 mg tablet 4 mg PO Q6H PRN nausea and 05/29/24 06/01/24 06/01/24 Rx vomiting 7 days #28 tabs oxycodone 5 mg tablet 5 mg PO Q6H PRN pain 7 days #28 05/29/24 06/01/24 06/01/24 Rx tabs Allergies Allergy/AdvReac Type Severity Reaction Status Date / Time tree nut Allergy Unknown Verified 05/21/24 10:33 Current Medications Generic Name Dose Route Start Last Admin Trade Name Freq PRN Reason Stop Dose Admin Sodium Chloride 1,000 mls @ 999 mls/hr 06/01/24 09:45 06/01/24 09:53 Sodium Chloride 0.9% IV 06/01/24 11:45 999 mls/hr .Q1H1M VALENTE Administration PFSH Anesthesia Family History Father Prostate cancer Social History Smoking and tobacco/nicotine status: never used tobacco/nicotine Alcohol intake: never Sexually active: No Do you think of yourself as: Straight/Heterosexual Data Anesthesia 06/01/24 08:15 06/01/24 08:15 Short CBC 06/01/24 Range/Units 08:15 WBC 38.23 H* (3.29-11.43) 10^3/uL Hgb 14.80 (11.27-16.99) g/dL Hct 43.2 (37-53) % MCV 89.3 (82-101) fl Plt Count 614 H (157-399) 10^3/cmm Neut % (Auto) 79.6 % Neut # (Auto) 30.46 H (1.8-7.7) 10^3/uL BMP 06/01/24 08:15 Sodium 133 L Potassium 3.9 Chloride 96 L Carbon Dioxide 22 BUN 15 Creatinine 0.7 Glucose 135 H Calcium 9.2 Liver Function 06/01/24 Range/Units 08:15 Total Bilirubin 1.4 H (0.15-1.2) mg/dL AST 12 (0-40) U/L ALT 21 (0-41) U/L Alkaline Phosphatase 61 (40-130) U/L Albumin 3.8 (3.5-5.2) g/dL Coags 06/01/24 08:15 ESR 30 H C-Reactive Protein 66.7 H Cardiac Studies: 2 No Data to Display
--- NOTE | 2024-06-01 14:28 | P.OP_ITS ---
Operative Report Date of procedure: June 01, 2024 Pre-op diagnosis: perforated diverticulitis with abscess. Post-op diagnosis: Perforated diverticulitis with abscess Post-op findings: There was a very large walled off collection in the mid pelvis, the percutaneous drain was directed through the omentum into the wall of the collection, the collection was formed by the sigmoid colon the omentum and the wall of the small bowel corresponding to the terminal ileum. A large perforation was noted on the sigmoid colon. After mobilization a serosal tear was noted in the terminal ile um, no evidence of mucosal bulging or full-thickness injury. Procedure done: Exploratory laparotomy, drainage of intra-abdominal abscess, sigmoid colectomy with end colostomy Implants: 19 Maldivian drain in the pelvis Specimens removed/disposition: Portion of omentum, portion of the sigmoid colon Surgeon: Lukasz Keating MD, Iain Pearce MD, Matt Hyman MD Senior Software Test Engineer: DENISE OR Staff Estimated blood loss: 50 Complications: None apparent Brief History: This is a 38-year-old male who presented about 10 days ago with perforated sigmoid diverticulitis, it was managed conservatively, despite antibiotic therapy his white count continue to trend the labs and therefore imaging was repeated showing evidence of an abscess, this abscess was drained by IR and patient was sent home. He returns with increased abdominal pain peritonitis and a CT scan showed no free intra-abdominal air. After discussion of risk benefits with side to proceed with a laparotomy with a sigmoid colectomy and end co lostomy. Procedure: Patient was taken to the OR, he was placed in a supine position. General anesthesia was given. The percutaneous drain was left in place to use it as a guide to identify the abscess cavity, the abdomen was prepped and draped in usual sterile fashion. Timeout was conducted. A midline laparotomy incision was made from the supraumbilical region all the way down to the pelvis, the incision was deepened until the fascia was identified and the fascia was opened with electrocautery, upon entry into the abdomen no adhesions to anterior abdominal wall were noted, the incision was completely open and a Gallo wound retractor was placed. The external drain was noted to lead to an abscess cavity in the center of the pelvis, the abscess cavity was completely walled off with dense inflammatory phlegmon involving the omentum, the terminal ileum and the sigmoid colon. With careful blunt and sharp dissection I was able to open up the collection, upon immediately entering the cavity large amount of purulent material as well as the stool was evacuated, gas was also heard coming of the cavity when we open it. The drain was completely removed from the abdomen. I carefully then mobilized the omentum and retracted cephalad, the terminal ileum was densely adhesed to the inflamed sigmoid colon I carefully was able to dissected off the sigmoid colon trying to preserve integrity of the terminal ileum. After mobilization the terminal ileum was evaluated it had a serosal tear measuring about 2.5 cm, with no evidence of a full-thickness perforation or bulging of the mucosa. At this point I proceeded to take down the sigmoid attachments to the lateral abdominal wall and I took down the white line of Toldt. Once mobilization was completed there was a very large phlegmonous mass at the level of the pelvis, due to the complexity of this surgical intervention at this point I decided to ask for assistance to my colleague Dr. Pearce. Dr. Pearce was able to scrubbing and with careful dissection we were able to mobilize the distal sigmoid from the pelvis allowing space for contour stapler to be passed around the distal sigmoid rectal junction and we transected at this level. We then completed mobilization of the sigmoid colon using LigaSure in the means of the sigmoid colon to complete the mobilization. Minimal bleeding was noted at the level of the pelvis and this was controlled with electrocautery. At this point Dr. Pearce scrubbed out and Dr. Robbins srubbed in to assist completing the operation. Once the mobilization was completed we proceeded to wash out the abdomen. We did not run the small bowel from the ligament of Treitz to the terminal ileum verifying integrity, no evidence of additional injuries or areas requiring repair were noted. The position of the NG tube was verified in the stomach. We then proceeded to exteriorize the ostomy via a left lower quadrant incision through the rectus muscle. A 19 Maldivian drain was placed in the pelvis and exteriorized via the right lower quadrant, the drain was fixed with #2 nylon. We then proceeded to use omentum to cover the small bowel and the distal omentum was placed in the pelvis. We then closed the fascia using #1 looped PDS, subcutaneous tissue of the midline was then irrigated and the skin closed with geovanny and packing between with half-inch iodoform packing. After finishing closing of the fascia Dr. Robbins scrubbed out, I then proceeded to mature the ostomy in a standard fashion using 3-0 Vicryl, ostomy appeared healthy with good bleeding from the edges after being matured. A sterile dressing was applied in the midline and also ostomy bag was placed. At the end of the procedure all counts were correct, the patient tolerated well the procedure was transferred to ICU in stable condition.
--- NOTE | 2024-06-01 14:58 | P.HP_ITS ---
Providers/Chief Complaint 2 Admitting Physician: Lisha Vinson MD Primary Care Provider: Destiny Young MD Chief Complaint: abd pain, pressure and pain, pump not working History of Present Illness Vickey Kirkland is a 38 year old male with no significant past medical history who presents to the ER with worsening abdominal pain, poor po intake. He was recently discharged from the hospital 05/29 after conservative management of a perforated sigmoid diverticulitis with abscess, patient received a drain at the end of last week and was discharged over the weekend. There is minimal fecal output in the drain as per surgery. Denies any history of fever, nausea, vomiting, diarrhea or bloody stools. He was discharged on 05/29 with midline and iV antibiotics ertapenem for 2 weeks. Patient was taken directly to OR for intervention before i could see him.History obtained after he returned from OR and was in ICU. Imaging done in the ER today showed evidence of perforated diverticulitis with small amount of intraperitoneal air. IMPRESSION: 1. Increased pneumoperitoneum. 2. Persistent sigmoid diverticulitis. 3. Stable pelvic drain position. 4. Interval increase in size of pelvic abscess, consider drain malfunction. 5. Bilateral renal benign cysts. No follow-up imaging is recommended. 6. Right renal calyceal lithiasis. White count is 38. ESR 30. CRP 66.7 lactate was 3.9 Procal 0.2 Review of Systems 2 General: Reports: 10 or more systems reviewed and unremarkable except in HPI and below Medications/Allergies Home Medications Medication Instructions Recorded Confirmed Last Taken Type amlodipine 10 mg tablet 10 mg PO DAILY 30 days #30 tabs 05/29/24 06/01/24 05/31/24 Rx clonidine HCl 0.1 mg tablet 0.1 mg PO Q12H 30 days #60 tabs 05/29/24 06/01/24 05/31/24 Rx dexamethasone 6 mg tablet 6 mg PO Q24H 4 days #4 tabs 05/29/24 06/01/24 06/01/24 Rx ondansetron HCl 4 mg tablet 4 mg PO Q6H PRN nausea and 05/29/24 06/01/24 06/01/24 Rx vomiting 7 days #28 tabs oxycodone 5 mg tablet 5 mg PO Q6H PRN pain 7 days #28 05/29/24 06/01/24 06/01/24 Rx tabs Allergies Allergy/AdvReac Type Severity Reaction Status Date / Time tree nut Allergy Unknown Verified 05/21/24 10:33 PFSH Acute 2 PFSH: Family History Father Prostate cancer Social History Smoking and tobacco/nicotine status: never used tobacco/nicotine Alcohol intake: never Sexually active: No Do you think of yourself as: Straight/Heterosexual Vitals/I&O/Wt Last Vital Signs Temp 98.4 F 06/01/24 10:30 Pulse 95 06/01/24 10:30 Resp 18 06/01/24 10:30 BP 190/112 06/01/24 10:30 Pulse Ox 97 06/01/24 10:30 O2 Del Method Room Air 06/01/24 10:30 05/31/24 06/01/24 06/01/24 22:59 06:59 14:59 Intake Total 300 / 300 Output Total 800 / 800 Balance -500 / -500 Weight last 48 hrs Weight 78.018 kg Physical Exam 2 Narrative: He is alert awake oriented x 3 in severe distress due to abdominal pain and postsurgery Chest clear to auscultation bilaterally Cardiovascular normal heart sounds no murmurs Abdomen soft, diffusely tender, distended, normal bowel sounds, colostomy bag draining serosanguineous fluid, right-sided TIKA drain with serosanguineous fluid, midline incision dressing. Present Urinary Catheter Management: Wilkins: Cath Placed During This Visit: yes Urinary Catheter Date of Insertion: 06/01/24 Urinary Catheter Time of Insertion: 11:35 Data 06/02/24 04:27 06/02/24 04:27 A&P Assessment and plan (1) Sepsis: (2) Diverticulitis of intestine with perforation and abscess: Plan Vickey Kirkland is a 38 year old male with no significant past medical history who presents to the ER with worsening abdominal pain, poor po intake. He was recently discharged from the hospital after conservative management of a perforated sigmoid diverticulitis with abscess, patient received a drain at the end of last week and was discharged over the weekend.CT c/w 1. Increased pneumoperitoneum. 2. Persistent sigmoid diverticulitis. 3. Stable pelvic drain position. 4. Interval increase in size of pelvic abscess, consider drain malfunction. Elevated WBC, lactate, ESR and CRP likely secondary to severe sepsis. #Sepsis- secondary to perforated sigmoid diverticulitis. S/P Exploratory laparotomy, drainage of intra-abdominal abscess, sigmoid colectomy with end colostomy,19 Kyr[place]z drain in the pelvis He is slightly hypertensive likely secondary to pain, but hemodynamically stable ID consult for further management. 05/27 FLUID COLLECTED FROM SIGMOID ABSCESS --Serratia plymuthi Antibiotics changed to IV meropenem 1g q8h Continue iV fluids for now. Pain control with IV dilaudid 0.5mg q2h prn. Will add fentanyl patch 25mcg q72h. DVT PPX with SCD GI PPX with iv pepcid 20mg bid He is full code for now. Attestations 2 Medical Necessity Statement*: He needs continued hospitalization for postop care for perforated sigmoid diverticulitis, sepsis, colostomy with IV antibiotics, fluids and pain management Time Spent in Patient Care: 45 minutes Coding Level of Care Code Critical Care >/= 30 minutes Diagnoses Sepsis A41.9 Diverticulitis of intestine with perforation and abscess K57.80 Time Spent (min) 45
--- NOTE | 2024-06-01 15:00 | ANE.PACU2 ---
Inpatient post-anesthesia follow up: Airway intact: Yes Vital signs: Temperature 97.9 F Pulse Rate 58 Respiratory Rate 22 Blood Pressure 141/96 Pulse Oximetry 99 Oxygen Delivery Me thod [ Nasal Cannula Current Rate & Del williams] Oxygen Delivery Me thod Room Air Oxygen Flow Rate [ Current Rate 2 & Delivery] Oxygen Flow Rate 3 Fraction of Inspir ed Oxygen Hydration adequate: Yes Nausea and vomiting: No Pain level: 1 Mental status: Baseline
--- NOTE | 2024-06-01 15:03 | PHA.VACGOAL ---
Vancomycin Goal - Goal Vancomycin Goal:: 15-20 mg/L Vancomycin Indication:: Other - Therapy Current therapy:: Pip/Tazo Day of therpy:: Day []of [] . Actual body weight (kg): 172 lb - Data Labs: WBC 38.23 10^3/uL (3.29-11.43) H* 06/01/24 08:15 RBC 4.84 10^6/uL (3.85-5.65) 06/01/24 08:15 Hgb 14.80 g/dL (11.27-16.99) 06/01/24 08:15 Hct 43.2 % (37-53) 06/01/24 08:15 MCV 89.3 fl (82-101) 06/01/24 08:15 MCH 30.6 pg (27-33) 06/01/24 08:15 MCHC 34.3 g/dL (30-55) 06/01/24 08:15 RDW 12.3 % (12.1-15.1) 06/01/24 08:15 Sodium 133 mmol/L (136-145) L 06/01/24 08:15 Potassium 3.9 mmol/L (3.5-5.1) 06/01/24 08:15 Chloride 96 mmol/L (98-107) L 06/01/24 08:15 Carbon Dioxide 22 mmol/L (22-29) 06/01/24 08:15 Anion Gap 18.9 (5-19) 06/01/24 08:15 BUN 15 mg/dL (6-20) 06/01/24 08:15 Creatinine 0.7 mg/dL (0.7-1.2) 06/01/24 08:15 GFR Calculation 125.5 mL/min (90-130) 06/01/24 08:15 Treatment plan:: new consult Regimen:: 2000 MG LOADING DOSE (1000MG IN ER 1000MG IN ICU) FOLLOWED BY 1000 MG Q8H
[2024-06-01] MEDS: HYDROmorphone 1 mg/mL INJ 1 mL 0.5 MG IVP ×3 (15:31→19:33)
--- NOTE | 2024-06-01 16:15 | ECG_ITS ---
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 Measurements Intervals [place] Rate: 89 P: 81 GA: 127 QRS: 67 QRSD: 77 T: 50 QT: 392 QTc: 477 Interpretive Statements SINUS RHYTHM LEFT ATRIAL ENLARGEMENT [-0.15mV P-WAVE IN V1/V2] Compared to ECG 12/13/2016 01:54:29 Atrial abnormality now present Electronically Signed On 06-02-2024 19:10:12 INSTRUCTIONAL MATERIALS DIRECTOR by Kd Khalil M.D. [email or web address]
[2024-06-01] MEDS: ketorolac 30 mg/mL INJ IVP (16:30)
[2024-06-01] MEDS: famotidine 20 mg/2 mL INJ IVP (16:30)
[2024-06-01] MEDS: fentaNYL 25 mcg Patch 1 PATCH TRANSDERMA (17:30)
[2024-06-01] MEDS: meropenem 1,000 mg SDV 1000 MG IVP (18:01)
--- NOTE | 2024-06-01 20:20 | PC.NURSE ---
Contacted Dr. Muñoz in reference to patient's continued complaints of pain after 0.5mg Dilaudid IVP given. Received orders to remove Fentanyl patch, change Dilaudid to 1mg IVP Q4HR, and add 25mcg Fentanyl IVP Q4HR as needed, also add Narcan in case it is needed.
--- NOTE | 2024-06-01 21:35 | PC.NURSE ---
Fentanyl 25mcg patch on outer right arm removed.
[2024-06-01] MEDS: fentaNYL 50 mcg/mL INJ 2mL 25 MCG IVP (21:40)
[2024-06-02] VITALS (57 sets, daily range): BP systolic 125–177; BP diastolic 74–99; PULSE 50–95; RESP 15–38; TEMP 36.6–36.9; O2SAT 92–100
[2024-06-02] MEDS: fentaNYL 50 mcg/mL INJ 2mL 25 MCG IVP ×2 (01:45→05:53)
[2024-06-02] MEDS: meropenem 1,000 mg SDV 1000 MG IVP ×3 (01:52→17:45)
[2024-06-02] MEDS: famotidine 20 mg/2 mL INJ IVP ×2 (03:08→15:20)
[2024-06-02] MEDS: HYDROmorphone 1 mg/mL INJ 1 mL IVP ×9 (04:07→23:10)
[2024-06-02 04:53] LABS: Basophils # 0.1 10^3/uL (0.0-0.1); Basophils % 0.2 %; Eosinophils % 0.1 %; Lymphocytes # 1.9 10^3/uL (0.8-4.8); Lymphocytes % 5.5 %; Mean Corpuscular HGB Conc 33.1 g/dL (30-55); Mean Corpuscular Hemoglobin 30.7 pg (27-33); Mean Corpuscular Volume 92.9 fl (82-101); Mean Platelet Volume 9.7 fL (7.4-10.4); Monocytes # 2.9 10^3/uL (0.2-0.9); Monocytes % 8.5 %; Neutrophils # 28.49 10^3/uL (1.8-7.7); Neutrophils % 83.8 %; Nucleated Red Blood Cells % 0 %; Platelet Count 413 10^3/cmm (157-399); Red Cell Distribution Width 12.8 % (12.1-15.1)
[2024-06-02] MEDS: VANCOMYCIN ADD-Vantage 1,000 MG in 0.9% NaCl ADD-Vantage 250 ML 250 MG IV ×3 (04:56→21:07)
[2024-06-02 05:06] LABS: White Blood Count 33.96 10^3/uL (3.29-11.43)
[2024-06-02 05:15] LABS: Alanine Aminotransferase 12 U/L (0-41); Albumin Level 2.9 g/dL (3.5-5.2); Alkaline Phosphatase 48 U/L (40-130); Anion Gap 13.3 (5-19); Aspartate Amino Transferase 11 U/L (0-40); Blood Urea Nitrogen 10 mg/dL (6-20); Calcium 8.2 mg/dL (8.5-10.5); Carbon Dioxide 25 mmol/L (22-29); Chloride 103 mmol/L (98-107); Creatinine Clr Calc Pharmacy 219.8533; Globulin 2.8 g/dL (1.3-4.6); Glomerular Filtration Rate 184.2 mL/min (90-130); Glucose 125 mg/dL (65-115); Osmolality Calculated 285 mOsm/kg (285-295); Potassium 4.3 mmol/L (3.5-5.1); Sodium 137 mmol/L (136-145); Total Bilirubin 1.3 mg/dL (0.15-1.2); Total Protein 5.7 g/dL (6.6-8.7)
[2024-06-02 05:16] LABS: Lactic Sepsis W/Reflex 0.8 mmol/L (0.5-2.2)
[2024-06-02 05:20] LABS: Procalcitonin 0.31 ng/mL (0-0.5)
--- NOTE | 2024-06-02 07:34 | P.PN_ITS ---
Subjective 2 Subjective: Patient is POD 1 s/p sigmoid colectomy with end colostomy for complicated diverticulitis with failed conservative treatment. patient has been having difficulty with pain control. despite several pain meds he continues have significant discomfort. TIKA output has been 140cc of serosanguinous fluid. Vitals/I&O/Wt Last Vital Signs Temp 97.9 F 06/02/24 04:00 Pulse 64 06/02/24 06:09 Resp 22 H 06/02/24 05:53 BP 147/93 06/02/24 04:00 Pulse Ox 99 06/02/24 05:53 O2 Del Method Room Air 06/02/24 04:00 O2 Flow Rate 3 06/01/24 16:07 06/01/24 06/02/24 06/02/24 22:59 06:59 14:59 Intake Total 1800 / 2100 250 / 250 Output Total 40 / 840 1600 / 2440 Balance 1760 / 1260 -1600 / -340 250 / 250 Weight last 48 hrs Weight 185 lb Weight 172 lb Physical Exam 2 Narrative: NG tube in place GI: OTHER: Surgical incision covered wth dressing that is stained with blood. the ostomy appears healthy but no bowel function yet. TIKA in place with SS output Urinary Catheter Management: Segal: Cath Placed During This Visit: yes Reason for Continuing Indwelling Catheter: Accurate Measurement of Urinary Output in Critically Ill Patients Urinary Catheter Date of Insertion: 06/01/24 Urinary Catheter Time of Insertion: 11:35 Data 06/02/24 04:27 06/02/24 04:27 Micro: Microbiology 06/01/24 16:46 Blood Culture - Preliminary Blood SPECIMEN COLLECTED 06/01/24 16:42 Blood Culture - Preliminary Blood SPECIMEN COLLECTED A&P Assessment and plan (1) Diverticulitis of intestine with perforation and abscess: (2) Sepsis: Plan Patient has adequate post operative progress for the first 24 hours after surgery. vitals have been stable. wbc has slightly downtrended and platelets ahve also trended down. UOP has been adequate and urine is clear. will continue current antibiotic therapy, will encourage movement and IS. will work on pain control with medical ICU team. -NG to LIWS -Pain control, have added IV tylenol for the next 24 hours. -continue segal cath until patient is ambulating. Attestations 2 Medical Necessity Statement*: will require ongoing hospitalization for post op management of perforated diverticulitis s/p colectomy. Coding Level of Care Code Acute Code for [facility] Fwd Diagnoses Diverticulitis of intestine with perforation and abscess K57.80 Sepsis A41.9
[2024-06-02] MEDS: acetaminophen 1,000 MG/100 ML PIGGYBACK 400 MG IV ×3 (07:38→22:50)
--- NOTE | 2024-06-02 07:39 | P.CONIM_ITS ---
Providers/Reason For Consult 2 Consulting Physician/Specialty*: Rocio Broderick MD / Infectious Disease Reason for Consult*: complicated diverticulitis Requesting Physician: Lisha Vinson MD Attending Physician: Lisha Vinson MD Primary Care Provider: Destiny Young MD History of Present Illness History of Present Illness Vickey Kirkland is a 39 year old male who was recently admitted to the hospital for perforated sigmoid diverticulitis with abscess between 05/21 to 05/29/2024. He was managed conservatively at that time. IR guided drain was placed into the diverticular abscess on 05/27/2024. Follow-up CT after drain placement had shown improvement of the abscess after drain placement. There was remaining residual extraluminal gas and phlegmonous changes. There was communicating tract between the sigmoid and the abscess. The drain had feculent material when last examined on 05/28/2024. On discharge patient was having bowel movements, was tolerating a p.o. diet, abscess cultures were pending. He discharged with IV ertapenem 1 g IV daily as an empiric choice with plan to repeat CT in 10 days and follow closely with general surgery as outpatient. He presented to the ER on 06/01/2024 with worsened abdominal pain, inability to tolerate diet and reduced drain output. CT of the abdomen and pelvis performed showed increased pneumoperitoneum, persistent sigmoid diverticulitis, interval increase in size of the pelvic abscess measuring 6.4 x 4.4 x 5.9 cm communicating with the sigmoid colon. His white blood cell count had now increased to 38,000. Patient was taken to the OR urgently for ex lap, drainage of intra-abdominal abscess sigmoid colectomy with end colostomy. Intraoperatively he was found to have a very large walled off collection in the mid pelvis, percutaneous drain was directed through the omentum into the wall of the collection. . This collection was formed by the sigmoid colon, the omentum and wall of the terminal ileum. A large perforation was noted in the sigmoid colon. After mobilization of serosal tear was encountered in the terminal ileum without evidence of a full-thickness injury. Patient was brought back to the intensive care unit for close postoperative monitoring. ID service is consulted with regards to recommendations for antibiotics. Overnight his pain has been uncontrolled needing morphine and fentanyl Review of Systems 2 General: Reports: 10 or more systems reviewed and unremarkable except in HPI and below Const: Denies: fever(s), chills or body aches Eyes: Denies: change in vision, blurry vision or photophobia ENMT: Reports: hoarseness; Denies: throat pain, enlarged tonsils, odynophagia or nasal congestion Card: Denies: chest pain, palpitations, irregular heart rhythm, edema, swelling of feet/ankles, lightheadedness, pre-syncope, dyspnea on exertion or orthopnea Resp: Denies: dyspnea, productive cough, non-productive cough, wheezing, stridor, pain on inspiration, change in phlegm color, hemoptysis or chest congestion GI: Denies: abdominal pain, nausea, vomiting, hematemesis, coffee ground emesis, dysphagia, heartburn, diarrhea, constipation, GI cramping, change in stool character, hematochezia or melena : Denies: flank pain, dysuria, urinary frequency, urinary urgency, urinary hesitancy or hematuria Musc: Denies: neck pain, back pain, extremity pain, joint swelling, joint warmth or deformity Neuro: Denies: headache(s), numbness in extremities, weakness in extremities, sensory changes, difficulty walking, frequent falls, dizziness, vertigo, behavioral changes, Slurred speech present or seizure-like activity Psych: Denies: anxiety, depression, suicidal ideation or homicidal ideation Endo: Denies: polyuria, polydipsia, tired all the time, cold intolerance or hot flashes Oneil/Lymph: Denies: easy bruising or easy bleeding Medications/Allergies Home Medications Medication Instructions Recorded Confirmed Last Taken Type amlodipine 10 mg tablet 10 mg PO DAILY 30 days #30 tabs 05/29/24 06/01/24 05/31/24 Rx clonidine HCl 0.1 mg tablet 0.1 mg PO Q12H 30 days #60 tabs 05/29/24 06/01/24 05/31/24 Rx dexamethasone 6 mg tablet 6 mg PO Q24H 4 days #4 tabs 05/29/24 06/01/24 06/01/24 Rx ondansetron HCl 4 mg tablet 4 mg PO Q6H PRN nausea and 05/29/24 06/01/24 06/01/24 Rx vomiting 7 days #28 tabs oxycodone 5 mg tablet 5 mg PO Q6H PRN pain 7 days #28 05/29/24 06/01/24 06/01/24 Rx tabs Allergies Allergy/AdvReac Type Severity Reaction Status Date / Time tree nut Allergy Unknown Verified 05/21/24 10:33 Current Medications Generic Name Dose Route Start Last Admin Trade Name Freq PRN Reason Stop Dose Admin Famotidine 20 mg 06/01/24 15:15 06/02/24 03:08 Famotidine 20 Mg/2 Ml Inj IVP 20 mg Q12H VALENTE Administration Fentanyl 25 mcg 06/01/24 20:30 06/02/24 05:53 Fentanyl 50 Mcg/Ml Inj 2ml IVP 25 mcg Q4H PRN Administration SEVERE PAIN Hydromorphone HCl 1 mg 06/01/24 20:31 06/02/24 04:07 Hydromorphone 1 Mg/Ml Inj 1 Ml IVP 1 mg Q4H PRN Administration PAIN Vancomycin HCl 1,000 mg/ 250 mls @ 250 mls/hr 06/02/24 05:00 06/02/24 07:13 Sodium Chloride IV Infused Q8H VALENTE Infusion Acetaminophen 1,000 mg in 100 mls @ 400 mls/hr 06/02/24 07:30 06/02/24 07:38 Acetaminophen IV 06/02/24 23:44 400 mls/hr Q8H VALENTE Administration Meropenem 1,000 mg 06/01/24 18:00 06/02/24 01:52 Meropenem 1,000 Mg Sdv IVP 1,000 mg Q8H VALENTE Administration PFSH Acute 2 PFSH: Family History Father Prostate cancer Social History Smoking and tobacco/nicotine status: never used tobacco/nicotine Alcohol intake: never Sexually active: No Do you think of yourself as: Straight/Heterosexual Vitals/I&O/Wt Last Vital Signs Temp 97.9 F 06/02/24 04:00 Pulse 64 06/02/24 06:09 Resp 22 H 06/02/24 05:53 BP 147/93 06/02/24 04:00 Pulse Ox 99 06/02/24 05:53 O2 Del Method Room Air 06/02/24 04:00 O2 Flow Rate 3 06/01/24 16:07 06/01/24 06/02/24 06/02/24 22:59 06:59 14:59 Intake Total 1800 / 2100 250 / 250 Output Total 40 / 840 1600 / 2440 Balance 1760 / 1260 -1600 / -340 250 / 250 Weight last 48 hrs Weight 83.915 kg Weight 78.018 kg Physical Exam 2 Narrative: General: No acute distress, AO x3 HEENT: PERRLA, pupils bilaterally equal and reactive, pallors not present Chest: Normal vesicular breath sounds, no added sounds, equal good air entry bilaterally CVS: S1-S2 regular, no murmurs, no tachycardia, no gallops, no rubs Abdomen: Soft, distended, colostomy in place, Braxton drain in place Neuro: No focal deficits, no facial deformity, AO x3, power 5/5 in all limbs Urinary Catheter Management: Wilkins: Cath Placed During This Visit: yes Reason for Continuing Indwelling Catheter: Accurate Measurement of Urinary Output in Critically Ill Patients Urinary Catheter Date of Insertion: 06/01/24 Urinary Catheter Time of Insertion: 11:35 Data 06/07/24 04:53 06/07/24 04:53 Other Labs: Radiology Impressions Abdomen/Pelvis CT 06/01/24 08:19 IMPRESSION: 1. Increased pneumoperitoneum. 2. Persistent sigmoid diverticulitis. 3. Stable pelvic drain position. 4. Interval increase in size of pelvic abscess, consider drain malfunction. 5. Bilateral renal benign cysts. No follow-up imaging is recommended. 6. Right renal calyceal lithiasis. COMMENTS: Consistent with the [employer]'s Incidental Findings Committee white paper (J Am Frida Radiol 2018): Any incidental renal lesion less than 1 cm or classified as too small to characterize, or any incidental cystic renal lesion characterized as simple-appearing, is likely benign. No follow-up imaging is recommended for these lesions per consensus recommendations based on imaging criteria. THIS REPORT CONTAINS FINDINGS THAT MAY BE CRITICAL TO PATIENT CARE. The findings were verbally communicated by me to DR. TRINI ONEIL via telephone conference at 9:16 AM VB NET PROGRAMMER on 06/01/2024. The findings were acknowledged and understood. Laboratory Results WBC 33.96 10^3/uL (3.29-11.43) H* 06/02/24 04:27 RBC 4.20 10^6/uL (3.85-5.65) 06/02/24 04:27 Hgb 12.90 g/dL (11.27-16.99) 06/02/24 04: Hct 39.0 % (37-53) 06/02/24 04: MCV 92.9 fl (82-101) 06/02/24 04:27 MCH 30.7 pg (27-33) 06/02/24 04: MCHC 33.1 g/dL (30-55) 06/02/24 04:27 RDW 12.8 % (12.1-15.1) 06/02/24 04:27 Plt Count 413 10^3/cmm (157-399) H D 06/02/24 04:27 MPV 9.7 fL (7.4-10.4) 06/02/24 04: Neut % (Auto) 83.8 % 06/02/24 04: Lymph % (Auto) 5.5 % 06/02/24 04: [place] % (Auto) 8.5 % 06/02/24 04:27 Eos % (Auto) 0.1 % 06/02/24 04:27 Baso % (Auto) 0.2 % 06/02/24 04:27 Neut # (Auto) 28.49 10^3/uL (1.8-7.7) H 06/02/24 04:27 Lymph # (Auto) 1.9 10^3/uL (0.8-4.8) 06/02/24 04:27 [place] # (Auto) 2.9 10^3/uL (0.2-0.9) H 06/02/24 04:27 Eos # (Auto) 0.0 10^3/uL (0.0-0.8) 06/02/24 04:27 Baso # (Auto) 0.1 10^3/uL (0.0-0.1) 06/02/24 04:27 Nucleated RBC % (auto) 0 % 06/02/24 04:27 Nucleated RBCs # 0.0 /100WBC 06/02/24 04:27 ESR 30 mm/hr (0-10) H 06/01/24 08:15 Sodium 137 mmol/L (136-145) 06/02/24 04:27 Potassium 4.3 mmol/L (3.5-5.1) 06/02/24 04:27 Chloride 103 mmol/L (98-107) 06/02/24 04:27 Carbon Dioxide 25 mmol/L (22-29) 06/02/24 04:27 Anion Gap 13.3 (5-19) 06/02/24 04:27 BUN 10 mg/dL (6-20) 06/02/24 04:27 Creatinine 0.5 mg/dL (0.7-1.2) L 06/02/24 04:27 GFR Calculation 184.2 mL/min (90-130) H 06/02/24 04:27 Glucose 125 mg/dL (65-115) H 06/02/24 04:27 Calculated Osmolality 285 mOsm/kg (285-295) 06/02/24 04:27 Lactic Acid 0.8 mmol/L (0.5-2.2) 06/02/24 04:27 Calcium 8.2 mg/dL (8.5-10.5) L 06/02/24 04:27 Magnesium 2.0 mg/dL (1.7-2.3) 06/02/24 04:27 Total Bilirubin 1.3 mg/dL (0.15-1.2) H 06/02/24 04:27 AST 11 U/L (0-40) 06/02/24 04:27 ALT 12 U/L (0-41) 06/02/24 04:27 Alkaline Phosphatase 48 U/L (40-130) 06/02/24 04:27 C-Reactive Protein 66.7 mg/L (0.0-4.9) H 06/01/24 08:15 Total Protein 5.7 g/dL (6.6-8.7) L D 06/02/24 04:27 Albumin 2.9 g/dL (3.5-5.2) L 06/02/24 04:27 Globulin 2.8 g/dL (1.3-4.6) 06/02/24 04:27 Procalcitonin 0.31 ng/mL (0-0.5) 06/02/24 04:27 Blood Type O Positive 06/01/24 10:54 Rho(D) Type Rh positive 06/01/24 10:54 Antibody Screen Negative 06/01/24 10:54 Micro: Microbiology 06/01/24 16:46 Blood Culture - Preliminary Blood SPECIMEN COLLECTED 06/01/24 16:42 Blood Culture - Preliminary Blood SPECIMEN COLLECTED NAME: Vickey Kirkland [facility] #: [id number] LOC: NANCY U #: [id number] AGE/SX: 38/M ROOM: 268 R E05/21/[address]: Michael Meyer MD : 1985 BED: 1 D IS: 05/29/24 FAX #: STATUS: DIS IN TLOC: Spec #: [id number] Frida: 05/27/24-1505 Status: COMP Req #: [id number] Recd: 05/27/24-[address]: Jennifer Gardner DO Src: Other Sour SpDesc: Ordered: Absces Cult&GS Comments: Comment FLUID COLLECTED FROM SIGMOID ABSCESS Procedure Result Verified Site Gram Stain Final 05/28/24-175 Result MANY WHITE BLOOD CELLS HEAVY GRAM POSITIVE RODS HEAVY GRAM NEGATIVE RODS Abscess Culture Final 05/30/24-1422 Organism 1 Serratia plymuthica Growth FEW FEW MIXED SUPERFICIAL CHELA ON DAY 3 S plymuthi M.I.C. RX --------- ------ * Amikacin <=16 S * Amoxicillin/Clavulanate >16/8 R * Ampicillin 16 I * Ampicillin/Sulbactam <=8/4 S * Aztreonam <=4 S * Cefepime <=8 S * Ceftriaxone <=1 S * Cefuroxime <=4 S * Ciprofloxacin <=1 S * Gentamicin <=2 S * Imipenem 2 I * Levofloxacin <=2 S * Tetracycline <=4 S * Trimethoprim/Sulfamethoxazole <=2/38 S * Piperacillin/Tazobactam <=16 S Abscess Culture Preliminary (changed) 05/29/24-154 Organism 1 Gram Negative Rods Growth FEW FEW MIXED SUPERFICIAL CHELA ON DAY 1 RESULTS TO FOLLOW A&P Assessment and plan (1) Diverticulitis of intestine with perforation and abscess: Plan Continue meropenem 1g iv every 8 hrs Add levofloxacin 750mg iv daily Add vancomycin with target trough ~15 for enterococcal coverage until blood cx and drain cx available suspect abscess to be polymicrobial clinical deterioration likely related to anatomical factors, inadequate source control, overwhelming abdominal collection Requested lab to send out sensitivity of recent serratia isolate for confirmation - susceptibility pattern not congruent with ESBL isolate given sensitivity to ceftriaxone, aztreonam, Fluroquinolones No OR cx available from 06/01 requested newly placed BRAXTON drain cx - likely to have some colonizers but would be helpful to evaluate resistant colonizers will follow Consult Attestations 2 Medical Necessity Statement: per attending Coding Level of Care Code Acute Code for Chg Fwd High MDM includes number and complexity of problems actively addressed during encounter, amount and/or complexity of data reviewed/ordered and described risk of complication, morbidity or mortality of management as documented Diagnoses Diverticulitis of intestine with perforation and abscess K57.80
[2024-06-02] MEDS: levofloxacin-dextrose 5 % 750 MG/150 ML PREMIX 100 MG IV (08:05)
[2024-06-02] MEDS: morphine 4 mg/mL SDV 1 mL 2 MG IVP ×4 (08:47→22:06)
--- NOTE | 2024-06-02 13:46 | PM.MISC ---
Miscellaneous Note Purpose of Documentation: Update on patient care Note: Patient has been stable, still complaining of abdominal generalized pain but it has been improved. Abdominal excision was evaluated I remove the packing from the subcutaneous tissue. Some oozing from the subcutaneous tissue was noted, I have repacked the wound with Tight packing to prevent further rebleeding, in case of additional bleeding I have instructed the nursing team to reinforce the outer dressing or replace outer dressing without removing the packing. TIKA drain continues to have serosanguineous output, has good urine output and vital signs are stable.
--- NOTE | 2024-06-02 17:14 | P.PN_ITS ---
Vitals/I&O/Wt Last Vital Signs Temp 97.9 F 06/02/24 04:00 Pulse 73 06/02/24 16:30 Resp 22 H 06/02/24 15:47 BP 140/91 06/02/24 16:30 Pulse Ox 99 06/02/24 16:30 O2 Del Method Nasal Cannula 06/02/24 08:12 O2 Flow Rate 2 06/02/24 08:12 06/02/24 06/02/24 06/02/24 06:59 14:59 22:59 Intake Total 750 / 750 Output Total 1600 / 2440 Balance -1600 / -340 750 / 750 Weight last 48 hrs Weight 83.915 kg Weight 78.018 kg Physical Exam 2 Narrative: General: He is alert awake oriented x 3, in severe distress due to abdominal pain HEENT: PERRLA, pupils bilaterally equal and reactive, pallors not present Chest: Normal vesicular breath sounds, no added sounds, equal good air entry bilaterally CVS: S1-S2 regular, no murmurs, no tachycardia, no gallops, no rubs Abdomen: Soft, diffusely tender, midline incision dressing present, colostomy bag draining bloody fluid, drain containing serosanguineous fluid, no organomegaly, bowel sounds present Neuro: No focal deficits, no facial deformity, AO x3, power 5/5 in all limbs Urinary Catheter Management: Wilkins: Cath Placed During This Visit: yes Reason for Continuing Indwelling Catheter: Accurate Measurement of Urinary Output in Critically Ill Patients Urinary Catheter Date of Insertion: 06/01/24 Urinary Catheter Time of Insertion: 11:35 Data 06/02/24 04:27 06/02/24 04:27 Micro: Microbiology 06/01/24 16:46 Blood Culture - Preliminary Blood NEGATIVE TO DATE 06/01/24 16:42 Blood Culture - Preliminary Blood NEGATIVE TO DATE 06/02/24 08:10 Gram Stain - Final Other Source A&P Assessment and plan (1) Sepsis: (2) Diverticulitis of intestine with perforation and abscess: Plan Vickey Kirkland is a 38 year old male with no significant past medical history who presents to the ER with worsening abdominal pain, poor po intake. He was recently discharged from the hospital after conservative management of a perforated sigmoid diverticulitis with abscess, patient received a drain at the end of last week and was discharged over the weekend.CT c/w 1. Increased pneumoperitoneum. 2. Persistent sigmoid diverticulitis. 3. Stable pelvic drain position. 4. Interval increase in size of pelvic abscess, consider drain malfunction. Elevated WBC, lactate, ESR and CRP likely secondary to severe sepsis. #Sepsis- secondary to perforated sigmoid diverticulitis. S/P Exploratory laparotomy, drainage of intra-abdominal abscess, sigmoid colectomy with end colostomy,19 Slov[place] drain in the pelvis He is slightly hypertensive likely secondary to pain, but hemodynamically stable ID consult for further management. 05/27 FLUID COLLECTED FROM SIGMOID ABSCESS --Serratia plymuthi Antibiotics changed to IV meropenem 1g q8h Continue iV fluids for now. Pain control with IV dilaudid 0.5mg q2h prn. Will add fentanyl patch 25mcg q72h. DVT PPX with SCD GI PPX with iv pepcid 20mg bid He is full code for now. 06/02/24 Still in severe abdominal pain requiring IV Dilaudid 1 mg every 2 hours, morphine 2 mg every 4 hours. Vital signs stable. Continue antibiotics as per ID, IV levofloxacin, vancomycin and meropenem. Follow-up new TIKA drain culture Abdominal incisional packing was soaked 2/3rd in its length, was repacked. Attestations 2 Medical Necessity Statement*: will require ongoing hospitalization for post op management of perforated diverticulitis s/p colectomy and pain control Time Spent in Patient Care: 20 minutes Coding Level of Care Code Acute Code for g Fwd Diagnoses Sepsis A41.9 Diverticulitis of intestine with perforation and abscess K57.80 Time Spent (min) 20
--- NOTE | 2024-06-02 17:54 | ECG_ITS ---
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 Measurements Intervals Dema Rate: 73 P: 67 CT: 124 QRS: 42 QRSD: 82 T: 13 QT: 419 QTc: 463 Interpretive Statements SINUS RHYTHM WARNING: DATA QUALITY MAY AFFECT INTERPRETATION Compared to ECG 06/01/2024 16:15:24 Atrial abnormality no longer present Electronically Signed On 06-02-2024 19:10:06 [employer] by Kd Khalil M.D. [email or web address]
--- NOTE | 2024-06-02 19:39 | PC.NURSE ---
Physician Notification: Called Dr. Keating @1939 to notify of pale stoma and absent bowl sounds on the R. side.
[2024-06-03] VITALS (59 sets, daily range): BP systolic 130–183; BP diastolic 72–128; PULSE 65–143; RESP 12–46; TEMP 36.7–37.3; O2SAT 92–99
[2024-06-03] MEDS: ketorolac 30 mg/mL INJ 15 MG IVP ×4 (00:25→20:36)
[2024-06-03] MEDS: HYDROmorphone 1 mg/mL INJ 1 mL IVP ×8 (01:07→14:52)
[2024-06-03] MEDS: meropenem 1,000 mg SDV 1000 MG IVP ×3 (01:12→17:58)
[2024-06-03] MEDS: morphine 4 mg/mL SDV 1 mL 2 MG IVP ×2 (02:03→19:25)
[2024-06-03 04:50] LABS: Basophils # 0.1 10^3/uL (0.0-0.1); Basophils % 0.2 %; Eosinophils # 0.4 10^3/uL (0.0-0.8); Hematocrit 37.5 % (37-53); Lymphocytes # 2.3 10^3/uL (0.8-4.8); Lymphocytes % 6.5 %; Mean Corpuscular HGB Conc 33.9 g/dL (30-55); Mean Corpuscular Hemoglobin 31.9 pg (27-33); Mean Corpuscular Volume 94.2 fl (82-101); Mean Platelet Volume 9.7 fL (7.4-10.4); Monocytes % 8.3 %; Neutrophils # 29.73 10^3/uL (1.8-7.7); Neutrophils % 82.4 %; Nucleated Red Blood Cells % 0 %; Platelet Count 366 10^3/cmm (157-399); Red Blood Count 3.98 10^6/uL (3.85-5.65); Red Cell Distribution Width 12.7 % (12.1-15.1)
[2024-06-03 04:55] LABS: White Blood Count 36.06 10^3/uL (3.29-11.43)
[2024-06-03] MEDS: VANCOMYCIN ADD-Vantage 1,000 MG in 0.9% NaCl ADD-Vantage 250 ML 250 MG IV ×2 (05:04→13:17)
[2024-06-03 05:14] LABS: Alanine Aminotransferase 10 U/L (0-41); Albumin Level 2.7 g/dL (3.5-5.2); Alkaline Phosphatase 53 U/L (40-130); Anion Gap 16.7 (5-19); Aspartate Amino Transferase 13 U/L (0-40); Blood Urea Nitrogen 13 mg/dL (6-20); Calcium 8.5 mg/dL (8.5-10.5); Carbon Dioxide 25 mmol/L (22-29); Chloride 101 mmol/L (98-107); Creatinine Clr Calc Pharmacy 226.4056; Globulin 3.1 g/dL (1.3-4.6); Glomerular Filtration Rate 184.2 mL/min (90-130); Glucose 105 mg/dL (65-115); Magnesium 1.8 mg/dL (1.7-2.3); Osmolality Calculated 288 mOsm/kg (285-295); Potassium 3.7 mmol/L (3.5-5.1); Sodium 139 mmol/L (136-145); Total Bilirubin 1.5 mg/dL (0.15-1.2); Total Protein 5.8 g/dL (6.6-8.7)
[2024-06-03] MEDS: fentaNYL 50 mcg/mL INJ 2mL 25 MCG IVP ×4 (06:01→22:20)
[2024-06-03] MEDS: levofloxacin-dextrose 5 % 750 MG/150 ML PREMIX 100 MG IV (06:51)
[2024-06-03] MEDS: LORazepam 2 mg/mL INJ 1 mL 0.5 MG IVP (08:01)
[2024-06-03] MEDS: magnesium sulfate premix 1 GM/100 ML PIGGYBACK IV (08:30)
[2024-06-03] MEDS: pantoprazole 40 mg SDV IVP (08:30)
[2024-06-03] MEDS: lidocaine 1% 5 ML in potassium chloride premix 100 ML 26.25 ML IV (08:31)
[2024-06-03] MEDS: phenol oral Spray 177 mL 3 SPRAY MUCOUS MEM (08:42)
[2024-06-03] MEDS: albumin 12.5 GM/250 ML VIAL IV (09:22)
--- NOTE | 2024-06-03 09:28 | PM.PN ---
Subjective Subjective: Postoperative day 2 status post exploratory laparotomy and sigmoid colectomy with end colostomy for perforated diverticulitis with a walled off abscess. Patient has been stable overnight still having issues with pain control but he was able to rest some more yesterday night, abdominal pain appears to have improved, he is making good urine and output from the TIKA drain has been serosanguineous. Vitals/I&O/Wt Last Vital Signs Temp 98.0 F 06/03/24 06:00 Pulse 96 06/03/24 06:00 Resp 24 H 06/03/24 06:52 BP 161/86 06/03/24 06:00 Pulse Ox 94 06/03/24 06:52 O2 Del Method Room Air 06/03/24 06:00 O2 Flow Rate 2 06/02/24 08:12 06/02/24 06/03/24 06/03/24 22:59 06:59 14:59 Intake Total 350 / 1100 350 / 1450 150 / 150 Output Total 1050 / 1050 560 / 1610 Balance -700 / 50 -210 / -160 150 / 150 Weight last 48 hrs Weight 179 lb 6.4 oz Weight 185 lb Physical Exam GI: OTHER: There is some bowel sounds on all quadrants, the ostomy appears healthy and there is some gas in the bag, surgical incision is healing well, I changed the dressing there was no significant bleeding noted at this time. Urinary Catheter Management: Wilkins: Cath Placed During This Visit: yes Reason for Continuing Indwelling Catheter: Accurate Measurement of Urinary Output in Critically Ill Patients Urinary Catheter Date of Insertion: 06/01/24 Urinary Catheter Time of Insertion: 11:35 Data 06/03/24 04:37 06/03/24 04:37 Micro: Microbiology 06/01/24 16:46 Blood Culture - Preliminary Blood NEGATIVE TO DATE 06/01/24 16:42 Blood Culture - Preliminary Blood NEGATIVE TO DATE 06/02/24 08:10 Gram Stain - Final Other Source A&P Assessment and plan (1) Diverticulitis of intestine with perforation and abscess: (2) Sepsis: Plan Overall is having good progression after surgery, his pain control has been difficult. We will allow him to have p.o. meds sips and chips but we will maintain NG tube for today, if by tomorrow there is some stool in the bag I might decide to discontinue the NG tube and allow him to get clear liquid diet. Abdominal examination is benign at this point. TIKA drain serosanguineous. Good urine output. The white count remains elevated but this is likely reactive due to significant inflammation noted in the abdomen during surgery. Plan is to continue current management we may decide to advance diet tomorrow. I will start him on Toradol 15 mg every 6 hours schedule to aid with pain control. I have encouraged him to use his incentive spirometer and I have informed the patient that he needs to get out of bed to the chair at least today to encourage his recovery and prevent blood clots. He shows understanding. I discussed the plan with medical team. Attestations Medical Necessity Statement*: Per medical team Coding Level of Care Code Acute Code for [facility] Diagnoses Diverticulitis of intestine with perforation and abscess K57.80 Sepsis A41.9
[2024-06-03] MEDS: water for injection-sterile 10 ML 1000 ML ×2 (10:16→17:58)
--- NOTE | 2024-06-03 10:51 | P.PN_ITS ---
Subjective 2 Subjective: Seen him at bedside this morning. No acute overnight events noted. Still complaining of 10 out of 10 pain, shortness of breath, chest pain, choking sensation in the throat due to anxiety. Was able to pursue conversation this morning and understands plan of care. He wants to be restarted on home medications for blood pressure. Medications: Reviewed: Yes Vitals/I&O/Wt Last Vital Signs Temp 98.0 F 06/03/24 06:00 Pulse 133 H 06/03/24 10:00 Resp 22 H 06/03/24 10:00 BP 159/88 06/03/24 10:00 Pulse Ox 97 06/03/24 10:00 O2 Del Method Room Air 06/03/24 06:00 O2 Flow Rate 2 06/02/24 08:12 06/02/24 06/03/24 06/03/24 22:59 06:59 14:59 Intake Total 350 / 1100 350 / 1450 250 / 250 Output Total 1050 / 1050 560 / 1610 Balance -700 / 50 -210 / -160 250 / 250 Weight last 48 hrs Weight 81.374 kg Weight 83.915 kg Physical Exam 2 Narrative: General: He is alert awake oriented x 3, in severe distress due to abdominal pain HEENT: PERRLA, pupils bilaterally equal and reactive, pallors not present Chest: Normal vesicular breath sounds, no added sounds, equal good air entry bilaterally CVS: S1-S2 regular, no murmurs, no tachycardia, no gallops, no rubs Abdomen: Soft, diffusely tender, midline incision dressing present, colostomy bag draining bloody fluid, drain containing serosanguineous fluid, no organomegaly, bowel sounds present Neuro: No focal deficits, no facial deformity, AO x3, power 5/5 in all limbs Urinary Catheter Management: Wilkins: Cath Placed During This Visit: yes Reason for Continuing Indwelling Catheter: Accurate Measurement of Urinary Output in Critically Ill Patients Urinary Catheter Date of Insertion: 06/01/24 Urinary Catheter Time of Insertion: 11:35 Data 06/03/24 04:37 06/03/24 04:37 Micro: Microbiology 06/01/24 16:46 Blood Culture - Preliminary Blood NEGATIVE TO DATE 06/01/24 16:42 Blood Culture - Preliminary Blood NEGATIVE TO DATE 06/02/24 08:10 Gram Stain - Final Other Source A&P Assessment and plan (1) Sepsis: (2) Diverticulitis of intestine with perforation and abscess: Plan Vickey Kirkland is a 38 year old male with no significant past medical history who presents to the ER with worsening abdominal pain, poor po intake. He was recently discharged from the hospital after conservative management of a perforated sigmoid diverticulitis with abscess, patient received a drain at the end of last week and was discharged over the weekend.CT c/w 1. Increased pneumoperitoneum. 2. Persistent sigmoid diverticulitis. 3. Stable pelvic drain position. 4. Interval increase in size of pelvic abscess, consider drain malfunction. Elevated WBC, lactate, ESR and CRP likely secondary to severe sepsis. #Sepsis- secondary to perforated sigmoid diverticulitis. S/P Exploratory laparotomy, drainage of intra-abdominal abscess, sigmoid colectomy with end colostomy,19 [place] drain in the pelvis He is slightly hypertensive likely secondary to pain, but hemodynamically stable ID consult for further management. 05/27 FLUID COLLECTED FROM SIGMOID ABSCESS --Serratia plymuthi Antibiotics changed to IV meropenem 1g q8h Continue iV fluids for now. Pain control with IV dilaudid 0.5mg q2h prn. Will add fentanyl patch 25mcg q72h. DVT PPX with SCD GI PPX with iv pepcid 20mg bid He is full code for now. 06/02/24 Still in severe abdominal pain requiring IV Dilaudid 1 mg every 2 hours, morphine 2 mg every 4 hours. Vital signs stable. Continue antibiotics as per ID, IV levofloxacin, vancomycin and meropenem. Follow-up new TIKA drain culture Abdominal incisional packing was soaked 2/3rd in its length, was repacked. 06/03/24 He is postop day 2 status post exploratory laparotomy and sigmoid colectomy with end colostomy for perforated diverticulitis with a walled off abscess Vital signs stable but has been on the hypertensive side. Will start home medication p.o. amlodipine 10 mg daily WBC count 36 still, likely secondary to stress and complicated abdominal surgery. Will continue current antibiotics and follow-up ID for further recommendations.. As per surgery, abdominal incision looks healing and no significant bleeding noted. Attestations 2 Medical Necessity Statement*: will require ongoing hospitalization for post op management of perforated diverticulitis s/p colectomy and pain control Time Spent in Patient Care: 20 minutes Coding Level of Care Code Acute Code for Chg Fwd Diagnoses Sepsis A41.9 Diverticulitis of intestine with perforation and abscess K57.80 Time Spent (min) 20
--- NOTE | 2024-06-03 11:37 | PC.NURSE ---
very anxious and restless c/o not being able to swallow and breath says throat is swollen very agitated , pain medication given and ativan given at this time , up in bed monitor vs
[2024-06-03] MEDS: amlodipine 10 mg Tablet PO (12:04)
[2024-06-03 12:30] LABS: Vancomycin Trough 6.7 ug/mL (10-15)
--- NOTE | 2024-06-03 14:00 | PC.NURSE ---
pt yelling in room , help i cant take this anymore , had pulled on ng and demanded it out explained that doctor need it in until tommorrow also request pain medication changed message sent to doctor
--- NOTE | 2024-06-03 15:29 | PC.NURSE ---
pain medicine changed per order
--- NOTE | 2024-06-03 18:16 | PC.NURSE ---
lots of flatus in colostomy audible rumbling of bowel sound , continues to have severe pain
[2024-06-03] MEDS: vancomycin 1,500 MG/300 ML PIGGYBACK 200 MG IV (20:35)
[2024-06-04] VITALS (55 sets, daily range): BP systolic 126–184; BP diastolic 87–125; PULSE 92–148; RESP 17–41; TEMP 36.7–38.1; O2SAT 92–99; BMI 14.3
[2024-06-04] MEDS: acetaminophen 1,000 MG/100 ML PIGGYBACK 400 MG IV (00:05)
[2024-06-04 00:52] LABS: C.Diff PCR (Lab) NEGATIVE (Negative)
[2024-06-04] MEDS: meropenem 1,000 mg SDV 2000 MG IVP ×3 (02:37→17:21)
[2024-06-04] MEDS: ketorolac 30 mg/mL INJ 15 MG IVP ×3 (02:37→14:50)
[2024-06-04 03:47] LABS: Basophils # 0.1 10^3/uL (0.0-0.1); Basophils % 0.2 %; Eosinophils # 0.2 10^3/uL (0.0-0.8); Eosinophils % 0.6 %; Hematocrit 35.1 % (37-53); Lymphocytes # 1.3 10^3/uL (0.8-4.8); Lymphocytes % 3.9 %; Mean Corpuscular HGB Conc 33.6 g/dL (30-55); Mean Corpuscular Hemoglobin 30.7 pg (27-33); Mean Corpuscular Volume 91.4 fl (82-101); Mean Platelet Volume 9.9 fL (7.4-10.4); Monocytes # 2.6 10^3/uL (0.2-0.9); Monocytes % 7.9 %; Neutrophils # 28.35 10^3/uL (1.8-7.7); Nucleated Red Blood Cells % 0 %; Platelet Count 406 10^3/cmm (157-399); Red Blood Count 3.84 10^6/uL (3.85-5.65); Red Cell Distribution Width 12.8 % (12.1-15.1)
[2024-06-04 04:14] LABS: Alanine Aminotransferase 23 U/L (0-41); Albumin Level 2.9 g/dL (3.5-5.2); Alkaline Phosphatase 89 U/L (40-130); Anion Gap 13.5 (5-19); Aspartate Amino Transferase 23 U/L (0-40); Blood Urea Nitrogen 15 mg/dL (6-20); Carbon Dioxide 26 mmol/L (22-29); Chloride 97 mmol/L (98-107); Creatinine Clr Calc Pharmacy 223.5822; Globulin 2.7 g/dL (1.3-4.6); Glomerular Filtration Rate 184.2 mL/min (90-130); Glucose 126 mg/dL (65-115); Magnesium 1.9 mg/dL (1.7-2.3); Osmolality Calculated 278 mOsm/kg (285-295); Potassium 3.5 mmol/L (3.5-5.1); Sodium 133 mmol/L (136-145); Total Bilirubin 1.7 mg/dL (0.15-1.2); Total Protein 5.6 g/dL (6.6-8.7)
[2024-06-04 04:26] LABS: White Blood Count 32.97 10^3/uL (3.29-11.43)
[2024-06-04] MEDS: linezolid premix 600 MG/300 ML PREMIX 300 MG IV ×2 (05:05→17:27)
[2024-06-04] MEDS: morphine 4 mg/mL SDV 1 mL 2 MG IVP ×4 (05:10→21:23)
[2024-06-04] MEDS: fentaNYL 50 mcg/mL INJ 2mL 25 MCG IVP ×3 (07:00→23:26)
[2024-06-04] MEDS: levofloxacin-dextrose 5 % 750 MG/150 ML PREMIX 100 MG IV (07:18)
--- NOTE | 2024-06-04 08:17 | P.PN_ITS ---
Subjective 2 Subjective: persistent leukocytosis at 30K, afberile currently. Continues to have significant pain. NGT in place. Medications: Reviewed: Yes Vitals/I&O/Wt Last Vital Signs Temp 98.8 F 06/04/24 03:24 Pulse 98 06/04/24 06:00 Resp 22 H 06/04/24 07:00 BP 164/101 06/04/24 06:00 Pulse Ox 97 06/04/24 07:00 O2 Del Method Room Air 06/04/24 04:00 O2 Flow Rate 2 06/02/24 08:12 06/03/24 06/04/24 06/04/24 22:59 06:59 14:59 Intake Total 310 / 1175 400 / 1575 Output Total 1010 / 1020 835 / 1855 Balance -700 / 155 -435 / -280 Weight last 48 hrs Weight 49.351 kg Weight 81.374 kg Physical Exam 2 Narrative: General: anxious related to pain HEENT: PERRLA, pupils bilaterally equal and reactive, pallors not present Chest: Normal vesicular breath sounds, no added sounds, equal good air entry bilaterally CVS: S1-S2 regular, no murmurs, no tachycardia, no gallops, no rubs Abdomen: Soft, distended, surgocal midline incision not grossly infected Neuro: No focal deficits, no facial deformity, AO x3, power 5/5 in all limbs Urinary Catheter Management: Wilkins: Cath Placed During This Visit: yes Reason for Continuing Indwelling Catheter: Accurate Measurement of Urinary Output in Critically Ill Patients Urinary Catheter Date of Insertion: 06/01/24 Urinary Catheter Time of Insertion: 11:35 Data 06/07/24 04:53 06/07/24 04:53 Micro: Microbiology 06/02/24 08:10 Gram Stain - Final Other Source Body Fluid Culture - Preliminary A&P Assessment and plan (1) Diverticulitis of intestine with perforation and abscess: Plan increase meropenem to 2 g iv every 8 hrs change vanc to linezolid as low troughs inspite of q8h dosing continue levofllox 70mg iv daily until Serratia susceptibility is confirmed pending drain cx pending meropenem susceptibility from outside lab check C diff from stoma output will follow Attestations 2 Medical Necessity Statement*: per admitting Coding Level of Care Code Acute Code for Chg Fwd Moderate MDM includes number and complexity of problems actively addressed during encounter, amount and/or complexity of data reviewed/ordered and described risk of complication, morbidity or mortality of management as documented Diagnoses Diverticulitis of intestine with perforation and abscess K57.80
[2024-06-04] MEDS: sodium chloride 0.9% 1,000 ML 75 ML IV ×2 (08:42→22:26)
[2024-06-04] MEDS: amlodipine 10 mg Tablet PO (08:50)
[2024-06-04] MEDS: pantoprazole 40 mg SDV IVP ×2 (08:50→17:21)
[2024-06-04] MEDS: LORazepam 2 mg/mL INJ 1 mL 0.5 MG IVP ×3 (09:11→21:28)
--- NOTE | 2024-06-04 09:39 | CT_ITS ---
WS: [id number] CT ABDOMEN AND PELVIS WITH AND WITHOUT CONTRAST HISTORY: perforated diverticulitis s/p surgery TECHNIQUE: With and without imaging through the abdomen and pelvis. Oral contrast has been provided. Sagittal and coronal reformats are submitted. All CT scans at [facility] use at least one of these dose optimization techniques: automated exposure control; mA and/or kV adjustment per patient s ize (includes targeted exams where dose is matched to clinical indication); or iterative reconstructi on. CONTRAST: Omnipaque 350; 95 mL IV. DLP: 1557.40 mGy.cm COMPARISON: 06/01/2024, 05/27/2024, 05/24/2024 Dependent changes at the lung bases. Nasogastric tube in good position. Moderate amount of intraperitoneal free air with slight improvement since 06/01/2024. This may be res idual postoperative air. Several foci of air noted along the RIGHT ascending colon near the drain. Dilated fluid-filled small bowel loops measuring up to 3 cm. There is fluid and air in the small martina l. Increasing air in the distal small bowel. Patient is post sigmoid colectomy with end colostomy. There is a colostomy in the LEFT lower quadrant . Percutaneous pigtail catheter is been removed. There is a small fluid collection in the mid pelvis which is not well formed measuring 3.6 x 2.6 cm. Small amount of fluid extends along the RIGHT paraco lic gutter also. There is soft tissue infiltration throughout the fat of the omentum and deep within the pelvis. Surgical excision site contains foci of air along the midline near the umbilicus. This could represen t early infection or be air entrapped along the surgical incision site. There is a surgical drain wit h the tip terminating in the LEFT abdomen near the level of the iliac crest. There is small bowel and colonic wall thickening. Submucosal edema within the small bowel. No definite recurrent abscess alth ough there are several pockets of fluid and a few foci of air which will need to be watched closely. Omental stranding at the level of the umbilicus is probably related to the surgery. Wilkins catheter in the urinary bladder. There is air in the urinary bladder. Stomach is distended with air and fluid and some oral contrast. No renal obstruction. CT/CT abdomen pelvis wo/w [id number] IMPRESSION: 1. Patient is status post sigmoid colectomy with end colostomy in the LEFT low er quadrant since the prior study of 06/01/2024. The percutaneous drainage cath eter is been removed. 2. Pelvic abscess is no longer present but there is soft tissue stranding with in the mesentery and omentum of the abdomen and pelvis. This may be edema but i nfection is not excluded. 3. There are a few scattered pockets of fluid and free air. There is no absces s. The amount of free air has improved since 06/01/2024. 4. Continued small bowel obstruction or ileus. 5. Surgical drain enters the RIGHT abdominal wall with the tip terminating tow ards the descending colon. 6. Nasogastric tube present in a distended stomach. Notified Lisha Vinson MD at 06/04/2024 1:[address] Keating.
--- NOTE | 2024-06-04 09:45 | P.PN_ITS ---
Subjective 2 Subjective: Is a 39-year-old male who is postoperative day 3 status post sigmoid colectomy with end colostomy for perforated diverticulitis with intra-abdominal abscess and failure of nonoperative management. Patient has been doing better over the last 24 hours he was able to have some sleep last night and the pain is better controlled. NG output appears a little bit bloody likely from local trauma. There are some gas in the ostomy bag. Vitals/I&O/Wt Last Vital Signs Temp 100.1 F H 06/04/24 08:00 Pulse 103 H 06/04/24 08:00 Resp 19 H 06/04/24 08:00 BP 159/104 06/04/24 08:00 Pulse Ox 96 06/04/24 08:00 O2 Del Method Room Air 06/04/24 08:00 O2 Flow Rate 2 06/02/24 08:12 06/03/24 06/04/24 06/04/24 22:59 06:59 14:59 Intake Total 310 / 1175 400 / 1575 Output Total 1010 / 1020 835 / 1855 150 / 150 Balance -700 / 155 -435 / -280 -150 / -150 Weight last 48 hrs Weight 108 lb 12.8 oz Weight 179 lb 6.4 oz Physical Exam 2 GI: OTHER: Abdomen is soft minimally tender to palpation, surgical incision was evaluated and packing was changed no evidence of purulence at this level. The ostomy has gas in the bag minimal amount of stool looks pink and healthy. TIKA drain is in place has had minimal output overnight appears to be bloody in nature. Urinary Catheter Management: Wilkins: Cath Placed During This Visit: yes Reason for Continuing Indwelling Catheter: Accurate Measurement of Urinary Output in Critically Ill Patients Urinary Catheter Date of Insertion: 06/01/24 Urinary Catheter Time of Insertion: 11:35 Data 06/04/24 03:15 06/04/24 03:15 Micro: Microbiology 06/02/24 08:10 Gram Stain - Final Other Source Body Fluid Culture - Preliminary A&P Assessment and plan (1) Diverticulitis of intestine with perforation and abscess: (2) Sepsis: Plan Patient appears to be improving but he continues to be mildly tachycardic and today he had a temperature of 100.1. In addition his white count remains elevated at 33. The bilirubin has slightly trended up to the 1.7. This findings after discussion with medical team and infectious diseases we have decided to repeat the CT scan of the abdomen pelvis with contrast to evaluate for any possible source of intra-abdominal pathology that may be causing the patient's symptoms. If the CT is unremarkable I will probably consider removing NG tube in the next 24 hours and allowing the base patient to have clear liquid diet. Encourage patient to move around and to get out of bed. He still has a Wilkins catheter. Urine output has been good. Attestations 2 Medical Necessity Statement*: Per medical team Coding Level of Care Code Acute Code for Chg Fwd Diagnoses Diverticulitis of intestine with perforation and abscess K57.80 Sepsis A41.9
[2024-06-04 10:12] LABS: Gastricult Occult Blood Positive (Negative)
--- NOTE | 2024-06-04 12:27 | PM.MISC ---
Miscellaneous Note Purpose of Documentation: Update on patient care Note: I was calling because there was bleeding from the midline incision, according to nursing report the dressing became saturated after the last dressing change and they will notice some yoselyn blood dripping of the wound. The dressing was reinforced. Upon arrival I remove all the dressing and remove the packing, no active bleeding was appreciated but since he has had some significant oozing over the last [address] hours [address] decided to [address] a hemostatic agent inside of the wound, [place] was placed in the area of concern and the wound was tightly packed. A compressive dressing was applied on top.
[2024-06-04] MEDS: iohexol 350 mg/mL 500 mL Btl (per mL) IV (12:51)
[2024-06-04] MEDS: iohexol 350 mg/mL 500 mL Btl (per mL) PO (12:51)
--- NOTE | 2024-06-04 13:39 | PC.NURSE ---
At approximately 1145 am, it was noticed that the patient's midline abdominal incision was oozing yoselyn red blood. Dressing in place which was recently changed by Dr Keating had become saturated and loose. Nurse reinforced dressing and alerted Dr Keating and requested new dressing change orders to adress bleeding. Dr keating came to bedside, performed dressing change, applied hemostatic powder during dressing change. After new dressing was in place, nurse assited Dr keating with placing foam tape stretched perpendicular across the incision to provide compression/approximation of the wound edges. Nurse continues to monitor site, bleeding has not reoccured.
--- NOTE | 2024-06-04 15:42 | P.PN_ITS ---
Subjective 2 Subjective: Seen him at bedside this morning. Still had complaint of 10/10 pain, has been able to get out of bed to chair with support. Still requiring pain medications more often. Has been tachycardic and hypertensive associated with pain. Blood pressure and heart rate improves to IV Ativan as needed for anxiety. Surgery at bedside, had dressing changed. Drain having serosanguineous discharge, colostomy bag with very little stools, colostomy stump clean and edematous but nonbleeding. Medications: Reviewed: Yes Vitals/I&O/Wt Last Vital Signs Temp 100.3 F H 06/04/24 13:30 Pulse 148 H 06/04/24 14:30 Resp 37 H 06/04/24 14:30 BP 157/101 06/04/24 14:30 Pulse Ox 98 06/04/24 14:30 O2 Del Method Room Air 06/04/24 14:30 O2 Flow Rate 2 06/02/24 08:12 06/04/24 06/04/24 06/04/24 06:59 14:59 22:59 Intake Total 400 / 1575 150 / 150 Output Total 835 / 1855 150 / 150 Balance -435 / -280 0 / 0 Weight last 48 hrs Weight 49.351 kg Weight 81.374 kg Physical Exam 2 Narrative: General: He is alert awake oriented x 3, in severe distress due to abdominal pain but able to comprehend HEENT: PERRLA, pupils bilaterally equal and reactive, pallors not present Chest: Normal vesicular breath sounds, no added sounds, equal good air entry bilaterally CVS: S1-S2 regular, no murmurs, no tachycardia, no gallops, no rubs Abdomen: Soft, diffusely tender, midline incision dressing present, incisional bleeding present, colostomy bag draining bloody fluid and very small amount of stool and gas, drain containing serosanguineous fluid, no organomegaly, bowel sounds present Neuro: No focal deficits, no facial deformity, AO x3, power 5/5 in all limbs Urinary Catheter Management: Wilkins: Cath Placed During This Visit: yes Reason for Continuing Indwelling Catheter: Accurate Measurement of Urinary Output in Critically Ill Patients Urinary Catheter Date of Insertion: 06/01/24 Urinary Catheter Time of Insertion: 11:35 Data 06/04/24 03:15 06/04/24 03:15 Micro: Microbiology 06/02/24 08:10 Gram Stain - Final Other Source Body Fluid Culture - Preliminary A&P Assessment and plan (1) Sepsis: (2) Diverticulitis of intestine with perforation and abscess: Plan Vickey Kirkland is a 38 year old male with no significant past medical history who presents to the ER with worsening abdominal pain, poor po intake. He was recently discharged from the hospital after conservative management of a perforated sigmoid diverticulitis with abscess, patient received a drain at the end of last week and was discharged over the weekend.CT c/w 1. Increased pneumoperitoneum. 2. Persistent sigmoid diverticulitis. 3. Stable pelvic drain position. 4. Interval increase in size of pelvic abscess, consider drain malfunction. Elevated WBC, lactate, ESR and CRP likely secondary to severe sepsis. #Sepsis- secondary to perforated sigmoid diverticulitis. S/P Exploratory laparotomy, drainage of intra-abdominal abscess, sigmoid colectomy with end colostomy,19 Austrian drain in the pelvis He is slightly hypertensive likely secondary to pain, but hemodynamically stable ID consult for further management. 05/27 FLUID COLLECTED FROM SIGMOID ABSCESS --Serratia plymuthi Antibiotics changed to IV meropenem 1g q8h Continue iV fluids for now. Pain control with IV dilaudid 0.5mg q2h prn. Will add fentanyl patch 25mcg q72h. DVT PPX with SCD GI PPX with iv pepcid 20mg bid He is full code for now. 06/02/24 Still in severe abdominal pain requiring IV Dilaudid 1 mg every 2 hours, morphine 2 mg every 4 hours. Vital signs stable. Continue antibiotics as per ID, IV levofloxacin, vancomycin and meropenem. Follow-up new TIKA drain culture Abdominal incisional packing was soaked 2/3rd in its length, was repacked. 06/03/24 He is postop day 2 status post exploratory laparotomy and sigmoid colectomy with end colostomy for perforated diverticulitis with a walled off abscess Vital signs stable but has been on the hypertensive side. Will start home medication p.o. amlodipine 10 mg daily WBC count 36 still, likely secondary to stress and complicated abdominal surgery. Will continue current antibiotics and follow-up ID for further recommendations.. As per surgery, abdominal incision looks healing and no significant bleeding noted. 06/04/24 He is postop day 3. WBC count still elevated at 32, he has been tachycardic and hypertensive likely secondary to pain which improves with IV Ativan as needed for anxiety. Antibiotics changed from vancomycin to Zyvox as per ID, meropenem increased to 2 g every 8 hours and continue levofloxacin. Blood cultures negative so far. Surgery concerned about elevated bilirubin of 1.7. Will check CMP in a.m. As per ID since he has been on broad-spectrum antibiotics and leukocytosis improving very slowly, question about intra-abdominal pathology/redeveloping abscess for resistance to antibiotics. Hence had a CT abdomen and pelvis with oral and IV contrast which showed 1. Patient is status post sigmoid colectomy with end colostomy in the LEFT lower quadrant since the prior study of 06/01/2024. The percutaneous drainage catheter is been removed. 2. Pelvic abscess is no longer present but there is soft tissue stranding within the mesentery and omentum of the abdomen and pelvis. This may be edema but infection is not excluded. 3. There are a few scattered pockets of fluid and free air. There is no abscess. The amount of free air has improved since 06/01/2024. 4. Continued small bowel obstruction or ileus. 5. Surgical drain enters the RIGHT abdominal wall with the tip terminating towards the descending colon. 6. Nasogastric tube present in a distended stomach. No new probable abscess as per radiology. But has pockets of fluid which could be likely reactive secondary to surgery. Will continue to monitor and IV antibiotics. Blood pressure medications adjusted, amlodipine increased to 10 mg daily and added lisinopril 5 mg daily Will continue IV Ativan 0.5 mg every 6 hours as needed Continue pain management NG tube draining brownish fluid which was Hemoccult positive. Likely due to insertional injury. Will continue to monitor CBC. Will follow-up surgery in a.m. for starting clear liquid diet Attestations 2 Medical Necessity Statement*: will require ongoing hospitalization for post op management of perforated diverticulitis s/p colectomy and pain control, management of colostomy and TIKA drain Time Spent in Patient Care: 40 minutes Coding Level of Care Code Critical Care >/= 30 minutes Diagnoses Sepsis A41.9 Diverticulitis of intestine with perforation and abscess K57.80 Time Spent (min) 40
[2024-06-04] MEDS: lisinopril 5 mg Tablet PO (16:20)
--- NOTE | 2024-06-04 16:57 | PC.NURSE ---
Shift Summary: Went to CT today- report reviewed by physicians. Up to a chair for about 2 hours. Stood at bedside and walked in place and did some exercises for about 10 minutes. Bowel sounds are still hypoactive, but frequency of gas into colostomy is increasing. Scant amount of stool produced this morning, and another scant amount of stool produced near end of shift. Heart rate has been tachycardiac, usually between 115-130, but will frequently jump to the 140's-150's during pain such as coughing or repositioning. 800mL of urine output 20mL of bloody drainage into TIKA 200mL of drainage from NG tube. Drainage description has varied throughout the shift. Initially being a brownish red, then changing to bright red, currently clear with streaks of red.
[2024-06-04] MEDS: metoprolol tartrate 1 mg/1 mL SDV 5 mL 5 MG IVP (17:32)
[2024-06-04] MEDS: ondansetron 2 mg/ML SDV 2 mL 4 MG IVP (19:20)
--- NOTE | 2024-06-04 23:35 | PC.NURSE ---
NG tube removal: Patient had been intermittently vomiting even after zofran administration, emesis was dark red/brown in color. Patient had vomited so hard the tip of the NG tube was protruding into his mouth. Suction was turned off and NG tube was removed. Dr. Keating was contacted and gave telephone orders to leave NG tube out for the night unless vomiting precedes.
[2024-06-05] VITALS (48 sets, daily range): BP systolic 128–169; BP diastolic 82–109; PULSE 94–139; RESP 14–37; TEMP 36.4–37.3; O2SAT 92–100; BMI 23.7
[2024-06-05] MEDS: metoclopramide 5 mg/mL SDV 2 mL IVP ×3 (01:05→19:41)
[2024-06-05] MEDS: acetaminophen 1,000 MG/100 ML PIGGYBACK 400 MG IV ×3 (01:05→23:40)
[2024-06-05] MEDS: scopolamine 1.5 Patch 1 PATCH TRANSDERMA (01:06)
--- NOTE | 2024-06-05 01:54 | PC.NURSE ---
Attempted NG reinsertion: After pain and nausea medication, patient agreed to reinsertion of NG tube as vomiting had persisted. Patient did not tolerate insertion, attempt was unsuccessful, Dr. Keating and Dr. Broderick were notified.
[2024-06-05] MEDS: meropenem 1,000 mg SDV 2000 MG IVP ×3 (02:39→17:26)
[2024-06-05] MEDS: morphine 4 mg/mL SDV 1 mL 2 MG IVP ×3 (04:04→20:11)
[2024-06-05] MEDS: lidocaine 5% Patch 1 PATCH TOPICAL ×2 (04:05→08:31)
--- NOTE | 2024-06-05 05:29 | ECG_ITS ---
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 Measurements Intervals [place] Rate: 108 P: 55 PA: 112 QRS: 0 QRSD: 83 T: 0 QT: 359 QTc: 483 Interpretive Statements SINUS TACHYCARDIA WITH SHORT PA INTERVAL NONSPECIFIC T-WAVE ABNORMALITY Compared to ECG 06/02/2024 17:54:28 Short PA interval now present T-wave abnormality now present Sinus rhythm no longer present Electronically Signed On 06-05-2024 10:23:23 CUSHION PADDER by Girma Collado M.D. [email or web address]
[2024-06-05 05:36] LABS: Basophils # 0.1 10^3/uL (0.0-0.1); Basophils % 0.2 %; Eosinophils # 0.2 10^3/uL (0.0-0.8); Eosinophils % 0.6 %; Hematocrit 35.5 % (37-53); Lymphocytes # 1.7 10^3/uL (0.8-4.8); Lymphocytes % 5.3 %; Mean Corpuscular HGB Conc 33.2 g/dL (30-55); Mean Corpuscular Hemoglobin 31.1 pg (27-33); Mean Corpuscular Volume 93.7 fl (82-101); Mean Platelet Volume 10.4 fL (7.4-10.4); Monocytes # 2.3 10^3/uL (0.2-0.9); Monocytes % 7.4 %; Neutrophils # 26.67 10^3/uL (1.8-7.7); Nucleated Red Blood Cells % 0 %; Platelet Count 495 10^3/cmm (157-399); Red Blood Count 3.79 10^6/uL (3.85-5.65); Red Cell Distribution Width 12.8 % (12.1-15.1)
[2024-06-05] MEDS: ondansetron 2 mg/ML SDV 2 mL 4 MG IVP ×3 (05:38→23:38)
[2024-06-05] MEDS: LORazepam 2 mg/mL INJ 1 mL 0.5 MG IVP ×4 (05:39→23:38)
[2024-06-05 05:49] LABS: White Blood Count 31.35 10^3/uL (3.29-11.43)
[2024-06-05 05:57] LABS: Alanine Aminotransferase 25 U/L (0-41); Albumin Level 2.7 g/dL (3.5-5.2); Alkaline Phosphatase 82 U/L (40-130); Anion Gap 15.9 (5-19); Aspartate Amino Transferase 17 U/L (0-40); Blood Urea Nitrogen 18 mg/dL (6-20); Calcium 8.4 mg/dL (8.5-10.5); Carbon Dioxide 26 mmol/L (22-29); Chloride 99 mmol/L (98-107); Creatinine Clr Calc Pharmacy 223.8856; Globulin 3.1 g/dL (1.3-4.6); Glomerular Filtration Rate 184.2 mL/min (90-130); Glucose 126 mg/dL (65-115); Osmolality Calculated 287 mOsm/kg (285-295); Potassium 3.9 mmol/L (3.5-5.1); Sodium 137 mmol/L (136-145); Total Bilirubin 1.6 mg/dL (0.15-1.2); Total Protein 5.8 g/dL (6.6-8.7)
--- NOTE | 2024-06-05 07:09 | P.PN_ITS ---
Subjective 2 Subjective: Controlled to Tmax 100.5 Fahrenheit on 06/04. Overnight continued to have excessive vomiting which resulted in NG tube being displaced. It has subsequently been unable to be placed in left out for now. Coffee-ground emesis was previously noted. Starting to have some stomal output with gas. Still complains of pain, but mostly now in the back. Remains extremely anxious. White blood cell count trending down, however still continues to be at 31.35. Medications: Reviewed: Yes Vitals/I&O/Wt Last Vital Signs Temp 98.2 F 06/05/24 03:30 Pulse 110 H 06/05/24 06:00 Resp 22 H 06/05/24 06:00 BP 130/101 06/05/24 06:00 Pulse Ox 95 06/05/24 06:00 O2 Del Method Room Air 06/05/24 06:00 O2 Flow Rate 2 06/04/24 21:30 06/04/24 06/05/24 06/05/24 22:59 06:59 14:59 Intake Total 1300 / 1450 100 / 1550 Output Total 860 / 1010 760 / 1770 Balance 440 / 440 -660 / -220 Weight last 48 hrs Weight 81.647 kg Weight 49.351 kg Physical Exam 2 Narrative: General: No acute distress, AO x3 HEENT: PERRLA, pupils bilaterally equal and reactive, pallors not present Chest: Normal vesicular breath sounds, no added sounds, equal good air entry bilaterally CVS: S1-S2 regular, no murmurs, no tachycardia, no gallops, no rubs Abdomen: Left abdomen colostomy in place. Abdomen distended. Output appearing to be green stools in bag along with gas. Neuro: No focal deficits, no facial deformity, AO x3, power 5/5 in all limbs Urinary Catheter Management: Wilkins: Cath Placed During This Visit: yes Reason for Continuing Indwelling Catheter: Accurate Measurement of Urinary Output in Critically Ill Patients Urinary Catheter Date of Insertion: 06/01/24 Urinary Catheter Time of Insertion: 11:35 Data 06/07/24 04:53 06/07/24 04:53 Micro: Microbiology 06/02/24 08:10 Gram Stain - Final Other Source Body Fluid Culture - Preliminary A&P Assessment and plan (1) Diverticulitis of intestine with perforation and abscess: Plan Yesterday with fever, tachycardia,nausea and vomiting NG displaced , could not be replaced CT abdomen repeated on 112 Findings as below Scattered pockets of fluid and free air . small fluid collection in the mid pelvis which is not well formed measuring 3.6 x 2.6 cm. Small amount of fluid extends along the RIGHT paracolic gutter also. There is soft tissue infiltration throughout the fat of the omentum and deep within the pelvis. 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 D/c linezolid- may be interacting with fentanyl to cause SSRI syndrome with fever, tachycardia, persisting HTN, extreme anxiety change back to vancomycin - high trough requested leukocytosis persistent at 31K check blood cx. other labs stable, incl kidney function and LFTs Continue meropenem 2 g IV every 8 hours and levofloxacin 750 mg IV every 24 hours Will continue to follow Attestations 2 Medical Necessity Statement*: Per admitting Coding Level of Care Code Acute Code for Chg Fwd High MDM includes number and complexity of problems actively addressed during encounter, amount and/or complexity of data reviewed/ordered and described risk of complication, morbidity or mortality of management as documented Diagnoses Diverticulitis of intestine with perforation and abscess K57.80
--- NOTE | 2024-06-05 07:14 | PHA.VACGOAL ---
Vancomycin Goal - Goal Vancomycin Goal:: 15-20 mg/L Vancomycin Indication:: Other (Sepsis and Diverticulitis of intestine with perforation and abscess) - Therapy Current therapy:: Meropenem, Other Antibiotic (Levofloxacin) Day of therpy:: Day [1]of [] . Actual body weight (kg): 81.647 kg - Data Labs: WBC 31.35 10^3/uL (3.29-11.43) H* 06/05/24 05:26 RBC 3.79 10^6/uL (3.85-5.65) L 06/05/24 05:26 Hgb 11.80 g/dL (11.27-16.99) 06/05/24 05:26 Hct 35.5 % (37-53) L 06/05/24 05:26 MCV 93.7 fl (82-101) 06/05/24 05:26 MCH 31.1 pg (27-33) 06/05/24 05:26 MCHC 33.2 g/dL (30-55) 06/05/24 05:26 RDW 12.8 % (12.1-15.1) 06/05/24 05:26 Sodium 137 mmol/L (136-145) 06/05/24 05:26 Potassium 3.9 mmol/L (3.5-5.1) 06/05/24 05:26 Chloride 99 mmol/L (98-107) 06/05/24 05:26 Carbon Dioxide 26 mmol/L (22-29) 06/05/24 05:26 Anion Gap 15.9 (5-19) 06/05/24 05:26 BUN 18 mg/dL (6-20) 06/05/24 05:26 Creatinine 0.5 mg/dL (0.7-1.2) L 06/05/24 05:26 GFR Calculation 184.2 mL/min (90-130) H 06/05/24 05:26 Treatment plan:: change Regimen:: Patient previously on vancomycin for sepsis and Diverticulitis of intestine with perforation/abscess. Stopped vancomycin on 06/03 and started on Linezolid. Restarting vancomycin today 06/05. Previous trough of 6.7 ug/mL was obtained with 1000 mg q8h dosing regimen. Will start on patient on maintenance dose of 1500 mg q8h.
[2024-06-05] MEDS: vancomycin 1,500 MG/300 ML PIGGYBACK 200 MG IV ×2 (07:20→17:26)
[2024-06-05] MEDS: levofloxacin-dextrose 5 % 750 MG/150 ML PREMIX 100 MG IV (07:21)
[2024-06-05] MEDS: fentaNYL 50 mcg/mL INJ 2mL 25 MCG IVP (07:22)
--- NOTE | 2024-06-05 07:26 | USCV_ITS ---
Vickey Kirkland Age: 39 Gender: M : 1985 Exam Date: 06/05/2024 09:26 Ordering Phys: Lisha Vinson MD Technologist: Jerzy Camarena Exam Location: [facility] [place] Indication: sepsis BP: 130 / 101 HR: 97 Rhythm: Sinus Technical Quality: Adequate MEASUREMENTS (Male / Female) Normal Values 2D ECHO LV Diastolic Diameter PLAX 4.1 cm 4.2 - 5.9 / 3.9 - 5.3 cm IVS Diastolic Thickness 1.3 cm 0.6 - 1.0 / 0.6 - 0.9 cm IVS Systolic Thickness 1.5 cm LVPW Diastolic Thickness 1.7 cm 0.6 - 1.0 / 0.6 - 0.9 cm LVPW Systolic Thickness 1.8 cm LV Ejection Fraction 2D Teich 72.0 % LV Ejection Fraction MOD 4C 67.9 % LV Ejection Fraction MOD 2C 65.4 % LV Ejection Fraction 2C AL 66.0 % LA Diameter 3.8 cm Aorta at Sinotubular Diameter 2.6 cm M-MODE LA Ao Ratio MM 1.0 AV Cusp Separation MM 2.3 cm DOPPLER LVOT Peak Velocity 114.0 cm/s MV Peak Velocity 78.0 cm/s MV Area PHT 5.4 cm squared Mitral E to A Ratio 0.9 TV Peak Velocity 276.8 cm/s TR Peak Velocity 293.0 cm/s TR Peak Gradient 34.3 mmHg TR Mean Velocity 256.0 cm/s TR Mean Gradient 27.5 mmHg TR Velocity Time Integral 61.5 cm PV Peak Velocity 112.0 cm/s RV Ejection Time 0.3 s FINDINGS Left Ventricle Left ventricle is normal size. LV systolic function is normal with EF of 55 to 60%. No regional wall abnormalities are seen. Right Ventricle Normal in size and function Right Atrium Normal in size Left Atrium Normal in size Mitral Valve Structurally normal mitral valve. Trace mitral regurgitation. Aortic Valve Structurally normal aortic valve. Trace aortic regurgitation. Tricuspid Valve Mild tricuspid regurgitation. RVSP is normal. Pulmonic Valve Trace pulmonic regurgitation. Pericardium Normal Aorta Normal in size IVC Not well visualized. CONCLUSIONS LV systolic function is normal with EF of 55-60% Trace mitral regurgitation Trace aortic regurgitation Mild tricuspid regurgitation Trace pulmonic regurgitation Girma Collado MD (Electronically Signed) Final Date: 05 June 2024 12:20 S
[2024-06-05] MEDS: lisinopril 5 mg Tablet PO (08:31)
[2024-06-05] MEDS: amlodipine 10 mg Tablet PO (08:31)
[2024-06-05] MEDS: pantoprazole 40 mg SDV IVP ×2 (08:31→17:27)
[2024-06-05 08:52] LABS: Procalcitonin 0.14 ng/mL (0-0.5)
[2024-06-05] MEDS: metoprolol tartrate 1 mg/1 mL SDV 5 mL 5 MG IVP (08:55)
--- NOTE | 2024-06-05 09:46 | PM.PN ---
Subjective Subjective: Patient has had a positive progression over the last 24 hours, pain control has improved, he did have an episode of vomiting overnight that caused his NG tube to be dislodged after that he has been spitting up some bloody fluid from the stomach likely due to irritation from the NG tube. The ostomy has been productive of gas and large amount of stool. Abdominal pain has improved. He has been able to ambulate in the last 24 hours. Overall he is states that he is feeling much better. He has been afebrile Vitals/I&O/Wt Last Vital Signs Temp 97.6 F 06/05/24 09:00 Pulse 100 06/05/24 09:30 Resp 30 H 06/05/24 09:30 BP 150/103 06/05/24 09:30 Pulse Ox 97 06/05/24 09:30 O2 Del Method Room Air 06/05/24 09:30 O2 Flow Rate 2 06/04/24 21:30 06/04/24 06/05/24 06/05/24 22:59 06:59 14:59 Intake Total 1300 / 1450 100 / 1550 160 / 160 Output Total 860 / 1010 760 / 1770 100 / 100 Balance 440 / 440 -660 / -220 60 / 60 Weight last 48 hrs Weight 180 lb Weight 108 lb 12.8 oz Physical Exam GI: OTHER: Abdomen is soft, minimally distended, appropriately tender to palpation, TIKA drain has no output, just some of the residue of blood from yesterday night. Abdominal incision was left undisturbed and ostomy is viable with large amount of gas and stool in place. Urinary Catheter Management: Wilkins: Cath Placed During This Visit: yes Reason for Continuing Indwelling Catheter: Accurate Measurement of Urinary Output in Critically Ill Patients Urinary Catheter Date of Insertion: 06/01/24 Urinary Catheter Time of Insertion: 11:35 Data 06/05/24 05:26 06/05/24 05:26 Micro: Microbiology 06/05/24 08:02 Blood Culture - Preliminary Blood SPECIMEN COLLECTED 06/05/24 08:00 Blood Culture - Preliminary Blood SPECIMEN COLLECTED 06/02/24 08:10 Gram Stain - Final Other Source Body Fluid Culture - Preliminary A&P Assessment and plan (1) Diverticulitis of intestine with perforation and abscess: (2) Sepsis: Plan Overall patient is making good progression none postoperative day 4 status post sigmoid colectomy with end ileostomy. Yesterday we repeated CT scan of the abdomen and pelvis, the following is my personal interpretation of the imaging. There is diffuse small bowel wall edema likely due to ileus plus extensive IV fluid resuscitation. There is no contrast extravasation. There is no rim-enhancing fluid collections in the abdomen but there is a pelvic fluid collection measuring about 3.5 to 4 cm, this collection is near the Perez's pouch to the right of the rectum, other than that there is no additional free fluid or intra-abdominal collections. The drain does not appear to be draining any area of fluid. I have explained to the patient that this fluid collection may represent a small abscess, we will continue antibiotic therapy but if we do not see an improvement on the white count over the next 2 to 3 days we will repeat a CAT scan and if the collection is persistent we might require a transgluteal IR drainage of this collection. While patient is spitting some blood clots I will expect this to subside with pantoprazole therapy and no additional intervention is required for this. We will keep the patient only on ice chips today. He was able to walk yesterday if he is able to walk today we will remove the Wilkins catheter, I will probably remove his TIKA drain later this afternoon if there is no output. This will be done with the hopes of the access right and the patient and allowing him to move around freely which will stimulate bowel motility in addition it will likely help with pain perception. Other than that we will continue current IV antibiotic therapy, he likely will require long-term antibiotics as guided by infectious diseases. I will do his dressing change later this afternoon. Attestations Medical Necessity Statement*: Per medical team Coding Level of Care Code Acute Code for [facility] Fwd Diagnoses Diverticulitis of intestine with perforation and abscess K57.80 Sepsis A41.9
[2024-06-05] MEDS: VANCOMYCIN ADD-Vantage 1,000 MG in 0.9% NaCl ADD-Vantage 250 ML 250 MG IV (09:59)
[2024-06-05] MEDS: sodium chloride 0.9% 1,000 ML 75 ML IV ×2 (11:07→23:39)
[2024-06-05] MEDS: fentaNYL 25 mcg Patch 1 PATCH TRANSDERMA (14:58)
--- NOTE | 2024-06-05 16:58 | P.PN_ITS ---
Subjective 2 Subjective: Seen him at bedside this morning. Feels better and is doing clinically better. Still needing frequent pain medications Overnight had an episodes of vomiting brownish fluid, was given Zofran and scopolamine patch vomiting improved this morning but still has intermittent vomiting with bilious fluid. Also NG tube came out last night. He has been feeling better without NG tube. Medications: Reviewed: Yes Vitals/I&O/Wt Last Vital Signs Temp 97.5 F L 06/05/24 12:00 Pulse 122 H 06/05/24 16:00 Resp 24 H 06/05/24 16:00 BP 128/91 06/05/24 16:00 Pulse Ox 99 06/05/24 16:00 O2 Del Method Room Air 06/05/24 16:00 O2 Flow Rate 2 06/04/24 21:30 06/05/24 06/05/24 06/05/24 06:59 14:59 22:59 Intake Total 100 / 1550 1661.25 / 1661.25 100 / 1761.25 Output Total 760 / 1770 800 / 800 Balance -660 / -220 861.25 / 861.25 100 / 961.25 Weight last 48 hrs Weight 81.647 kg Weight 49.351 kg Physical Exam 2 Narrative: General: He is alert awake oriented x 3, in severe distress due to abdominal pain but able to comprehend HEENT: PERRLA, pupils bilaterally equal and reactive, pallors not present Chest: Normal vesicular breath sounds, no added sounds, equal good air entry bilaterally CVS: S1-S2 regular, no murmurs, no tachycardia, no gallops, no rubs Abdomen: Soft, diffusely tender, midline incision dressing present, incisional bleeding present, colostomy bag draining bloody fluid and large amount of stool and gas, drain containing very minimal serosanguineous fluid, no organomegaly, bowel sounds present Neuro: No focal deficits, no facial deformity, AO x3, power 5/5 in all limbs Urinary Catheter Management: Wilkins: Cath Placed During This Visit: yes Reason for Continuing Indwelling Catheter: Accurate Measurement of Urinary Output in Critically Ill Patients Urinary Catheter Date of Insertion: 06/01/24 Urinary Catheter Time of Insertion: 11:35 Data 06/05/24 05:26 06/05/24 05:26 Micro: Microbiology 06/02/24 08:10 Gram Stain - Final Other Source Body Fluid Culture - Final 06/05/24 08:02 Blood Culture - Preliminary Blood SPECIMEN COLLECTED 06/05/24 08:00 Blood Culture - Preliminary Blood SPECIMEN COLLECTED A&P Assessment and plan (1) Sepsis: (2) Diverticulitis of intestine with perforation and abscess: Plan Vickey Kirkland is a 38 year old male with no significant past medical history who presents to the ER with worsening abdominal pain, poor po intake. He was recently discharged from the hospital after conservative management of a perforated sigmoid diverticulitis with abscess, patient received a drain at the end of last week and was discharged over the weekend.CT c/w 1. Increased pneumoperitoneum. 2. Persistent sigmoid diverticulitis. 3. Stable pelvic drain position. 4. Interval increase in size of pelvic abscess, consider drain malfunction. Elevated WBC, lactate, ESR and CRP likely secondary to severe sepsis. #Sepsis- secondary to perforated sigmoid diverticulitis. S/P Exploratory laparotomy, drainage of intra-abdominal abscess, sigmoid colectomy with end colostomy,19 Portuguese drain in the pelvis He is slightly hypertensive likely secondary to pain, but hemodynamically stable ID consult for further management. 05/27 FLUID COLLECTED FROM SIGMOID ABSCESS --Serratia plymuthi Antibiotics changed to IV meropenem 1g q8h Continue iV fluids for now. Pain control with IV dilaudid 0.5mg q2h prn. Will add fentanyl patch 25mcg q72h. DVT PPX with SCD GI PPX with iv pepcid 20mg bid He is full code for now. 06/02/24 Still in severe abdominal pain requiring IV Dilaudid 1 mg every 2 hours, morphine 2 mg every 4 hours. Vital signs stable. Continue antibiotics as per ID, IV levofloxacin, vancomycin and meropenem. Follow-up new TIKA drain culture Abdominal incisional packing was soaked 2/3rd in its length, was repacked. 06/03/24 He is postop day 2 status post exploratory laparotomy and sigmoid colectomy with end colostomy for perforated diverticulitis with a walled off abscess Vital signs stable but has been on the hypertensive side. Will start home medication p.o. amlodipine 10 mg daily WBC count 36 still, likely secondary to stress and complicated abdominal surgery. Will continue current antibiotics and follow-up ID for further recommendations.. As per surgery, abdominal incision looks healing and no significant bleeding noted. 06/04/24 He is postop day 3. WBC count still elevated at 32, he has been tachycardic and hypertensive likely secondary to pain which improves with IV Ativan as needed for anxiety. Antibiotics changed from vancomycin to Zyvox as per ID, meropenem increased to 2 g every 8 hours and continue levofloxacin. Blood cultures negative so far. Surgery concerned about elevated bilirubin of 1.7. Will check CMP in a.m. As per ID since he has been on broad-spectrum antibiotics and leukocytosis improving very slowly, question about intra-abdominal pathology/redeveloping abscess for resistance to antibiotics. Hence had a CT abdomen and pelvis with oral and IV contrast which showed 1. Patient is status post sigmoid colectomy with end colostomy in the LEFT lower quadrant since the prior study of 06/01/2024. The percutaneous drainage catheter is been removed. 2. Pelvic abscess is no longer present but there is soft tissue stranding within the mesentery and omentum of the abdomen and pelvis. This may be edema but infection is not excluded. 3. There are a few scattered pockets of fluid and free air. There is no abscess. The amount of free air has improved since 06/01/2024. 4. Continued small bowel obstruction or ileus. 5. Surgical drain enters the RIGHT abdominal wall with the tip terminating towards the descending colon. 6. Nasogastric tube present in a distended stomach. No new probable abscess as per radiology. But has pockets of fluid which could be likely reactive secondary to surgery. Will continue to monitor and IV antibiotics. Blood pressure medications adjusted, amlodipine increased to 10 mg daily and added lisinopril 5 mg daily Will continue IV Ativan 0.5 mg every 6 hours as needed Continue pain management NG tube draining brownish fluid which was Hemoccult positive. Likely due to insertional injury. Will continue to monitor CBC. Will follow-up surgery in a.m. for starting clear liquid diet 06/05/24 He is postop day 4. WBC count slowly trending down to 31. He still has been hypertensive and tachycardic, getting better with IV metoprolol 5 mg as needed. Antibiotics changed back to vancomycin, levofloxacin and meropenem as per ID. Blood cultures negative so far. He has been feeling better and clinically doing better, had a large stool amount in colostomy bag. Minimal drainage in TIKA drain. Abdominal examination improved. Will continue current management. Attestations 2 Medical Necessity Statement*: will require ongoing hospitalization for post op management of perforated diverticulitis s/p colectomy and pain control, management of colostomy and TIKA drain and IV antibiotics Time Spent in Patient Care: 20 minutes Coding Level of Care Code Acute Code for Chg Fwd Diagnoses Sepsis A41.9 Diverticulitis of intestine with perforation and abscess K57.80 Time Spent (min) 20
--- NOTE | 2024-06-05 19:30 | PC.NURSE ---
Patient vomited x 2 Dark reddish brown emesis. Same as was reported by day shift nurse. Surgeon is aware. Offered reglan.
[2024-06-06] VITALS (31 sets, daily range): BP systolic 129–172; BP diastolic 75–109; PULSE 85–135; RESP 16–30; TEMP 36.6–37.3; O2SAT 93–99
[2024-06-06] MEDS: vancomycin 1,500 MG/300 ML PIGGYBACK 200 MG IV ×2 (01:39→08:31)
[2024-06-06] MEDS: meropenem 1,000 mg SDV 2000 MG IVP ×3 (02:47→17:54)
[2024-06-06] MEDS: morphine 4 mg/mL SDV 1 mL 2 MG IVP ×4 (03:19→19:32)
[2024-06-06 05:08] LABS: Basophils % 0.1 %; Eosinophils # 0.4 10^3/uL (0.0-0.8); Eosinophils % 2.7 %; Hematocrit 28.2 % (37-53); Lymphocytes # 1.6 10^3/uL (0.8-4.8); Lymphocytes % 10.4 %; Mean Corpuscular HGB Conc 33.3 g/dL (30-55); Mean Corpuscular Hemoglobin 31.9 pg (27-33); Mean Corpuscular Volume 95.6 fl (82-101); Mean Platelet Volume 9.7 fL (7.4-10.4); Monocytes # 1.6 10^3/uL (0.2-0.9); Monocytes % 10.4 %; Neutrophils # 11.73 10^3/uL (1.8-7.7); Neutrophils % 75.1 %; Nucleated Red Blood Cells % 0 %; Platelet Count 348 10^3/cmm (157-399); Red Blood Count 2.95 10^6/uL (3.85-5.65); Red Cell Distribution Width 13.1 % (12.1-15.1); White Blood Count 15.62 10^3/uL (3.29-11.43)
[2024-06-06 05:28] LABS: Alanine Aminotransferase 16 U/L (0-41); Albumin Level 2.5 g/dL (3.5-5.2); Alkaline Phosphatase 58 U/L (40-130); Anion Gap 8.3 (5-19); Aspartate Amino Transferase 12 U/L (0-40); Blood Urea Nitrogen 16 mg/dL (6-20); Calcium 8.4 mg/dL (8.5-10.5); Carbon Dioxide 29 mmol/L (22-29); Chloride 103 mmol/L (98-107); Creatinine Clr Calc Pharmacy 279.8569; Globulin 2.4 g/dL (1.3-4.6); Glomerular Filtration Rate 238.3 mL/min (90-130); Glucose 90 mg/dL (65-115); Magnesium 1.9 mg/dL (1.7-2.3); Osmolality Calculated 285 mOsm/kg (285-295); Potassium 3.3 mmol/L (3.5-5.1); Sodium 137 mmol/L (136-145); Total Protein 4.9 g/dL (6.6-8.7)
[2024-06-06] MEDS: acetaminophen 1,000 MG/100 ML PIGGYBACK 400 MG IV ×2 (06:05→22:59)
--- NOTE | 2024-06-06 07:00 | P.PN_ITS ---
Subjective 2 Subjective: Patient appears to be doing clinically better today. White blood cell count is down from 31,000-15.62. C. difficile PCR is negative. His pain is improved today. He is able to have an extended conversation. Nausea has improved after addition of Reglan and scopolamine patch. Requiring less pain medication now. He was able to get out of bed and ambulate yesterday. Medications: Reviewed: Yes Vitals/I&O/Wt Last Vital Signs Temp 99.2 F 06/07/24 04:00 Pulse 90 06/07/24 06:00 Resp 21 H 06/07/24 06:00 BP 126/78 06/07/24 06:00 Pulse Ox 97 06/07/24 06:00 O2 Del Method Room Air 06/07/24 06:00 O2 Flow Rate 1 06/06/24 14:00 06/06/24 06/07/24 06/07/24 22:59 06:59 14:59 Intake Total 500 / 2165 1000 / 3165 Output Total 2000 / 3200 850 / 4050 Balance -1500 / -1035 150 / -885 Weight last 48 hrs Weight 81.556 kg Weight 84.595 kg Physical Exam 2 Narrative: General: No acute distress, AO x3 HEENT: PERRLA, pupils bilaterally equal and reactive, pallors not present Chest: Normal vesicular breath sounds, no added sounds, equal good air entry bilaterally CVS: S1-S2 regular, no murmurs, no tachycardia, no gallops, no rubs Abdomen: Soft, distended, colostomy with stool and gas. Abdominal wound with surgical dressing in place: Currently opened for exam. Neuro: No focal deficits, no facial deformity, AO x3, power 5/5 in all limb Urinary Catheter Management: Wilkins: Cath Placed During This Visit: yes Reason for Continuing Indwelling Catheter: Accurate Measurement of Urinary Output in Critically Ill Patients Urinary Catheter Date of Insertion: 06/01/24 Urinary Catheter Time of Insertion: 11:35 Data 06/07/24 04:53 06/07/24 04:53 Micro: Microbiology 06/01/24 16:46 Blood Culture - Final Blood NO GROWTH AFTER 5 DAYS 06/01/24 16:42 Blood Culture - Final Blood NO GROWTH AFTER 5 DAYS 06/05/24 08:02 Blood Culture - Preliminary Blood NEGATIVE TO DATE 06/05/24 08:00 Blood Culture - Preliminary Blood NEGATIVE TO DATE A&P Assessment and plan (1) Diverticulitis of intestine with perforation and abscess: Plan improving fever curve,nausea and vomiting Appears to be clinically better today. Leukocytosis is improving. He is able to ambulate. Stoma has stool and gas output. TIKA drain removed due to minimal output. Drain culture from 1127 negative to date. OR culture not available from 1126. IR drain/abscess culture from 05/27/2024 with Serratia plymuthica. Susceptibilities confirmed from micro lab. Isolate is sensitive to ertapenem with an LOCO of 0.5, imipenem LOCO of 1. meropenem suscpetibility pending. clinical worsening on outpatient abx not likely to be related to abx failure given noted senistivities. vancomycin resumed, dose increased to target trough ~15, appreciate pharmacy dosing Blood cx negative to date Continue meropenem 2 g IV every 8 hours d/c levofloxacin now that carbapenem sensitivity is confirmed Will continue to follow Attestations 2 Medical Necessity Statement*: per admitting Coding Level of Care Code Acute Code for [facility] Diagnoses Diverticulitis of intestine with perforation and abscess K57.80
[2024-06-06] MEDS: ondansetron 2 mg/ML SDV 2 mL 4 MG IVP (07:44)
[2024-06-06] MEDS: lidocaine 5% Patch 1 PATCH TOPICAL (08:19)
[2024-06-06] MEDS: pantoprazole 40 mg SDV IVP ×2 (08:20→17:54)
[2024-06-06] MEDS: amlodipine 10 mg Tablet PO (08:20)
[2024-06-06] MEDS: lisinopril 5 mg Tablet PO (08:20)
[2024-06-06] MEDS: lidocaine 1% 5 ML in potassium chloride premix 100 ML 26.25 ML IV (09:10)
[2024-06-06] MEDS: albumin 12.5 GM/250 ML VIAL IV (09:12)
--- NOTE | 2024-06-06 09:56 | P.PN_ITS ---
Subjective 2 Subjective: Postoperative day 5 status post sigmoid colectomy with end colostomy for perforated diverticulitis which failed conservative management and IR drainage. Patient has shown a significant improvement over the last 24 hours, ostomy is productive of gas and large amount of the stool the TIKA drain was removed yesterday night, he is feeling much better and pain is better controlled. He still had some episodes of spitting and belching overnight but has not had any of these in the last 6 to 8 hours. Vitals/I&O/Wt Last Vital Signs Temp 97.8 F 06/06/24 08:00 Pulse 91 06/06/24 08:00 Resp 24 H 06/06/24 08:00 BP 129/75 06/06/24 08:00 Pulse Ox 95 06/06/24 08:00 O2 Del Method Room Air 06/06/24 08:00 O2 Flow Rate 2 06/04/24 21:30 06/05/24 06/06/24 06/06/24 22:59 06:59 14:59 Intake Total 450 / 2111.25 1440 / 3551.25 10 10 Output Total 1350 / 2150 550 / 2700 Balance -900 / -38.75 890 / 851.25 10 Weight last 48 hrs Weight 186 lb 8 oz Weight 180 lb Physical Exam 2 GI: OTHER: Abdomen is soft, minimally tender, slightly distended, surgical incision is covered with a dry dressing ostomy is in place ostomy is healthy producing large amount of gas and stool. Urinary Catheter Management: Wilkins: Cath Placed During This Visit: yes Reason for Continuing Indwelling Catheter: Accurate Measurement of Urinary Output in Critically Ill Patients Urinary Catheter Date of Insertion: 06/01/24 Urinary Catheter Time of Insertion: 11:35 Data 06/06/24 04:36 06/06/24 04:36 Micro: Microbiology 06/05/24 08:02 Blood Culture - Preliminary Blood NEGATIVE TO DATE 06/05/24 08:00 Blood Culture - Preliminary Blood NEGATIVE TO DATE 06/02/24 08:10 Gram Stain - Final Other Source Body Fluid Culture - Final A&P Assessment and plan (1) Diverticulitis of intestine with perforation and abscess: Plan Patient showing very good progression over the last 24 hours he has been afebrile, tachycardia has improved, pain control is better, ostomy is productive of gas and stool and his white count trended significantly down for the first time since his hospital stay and now is 15. Yesterday he did not walk around too much the cuff states that today he is able to ambulate and after ambulation we will remove Wilkins catheter. He has still having some episodes of belching I think this is most likely related to high dose of opiate medication that the patient has received over the last week which could lead to an ileus. I have discussed with the medical team were going to try to stop all opiate medication today and hopefully if after ambulating he is feeling better we may decide to start a clear liquid diet tomorrow. Will plan for PICC line placement at some point next week as patient will require long-term antibiotics per ID recommendations. Overall improved from the surgical standpoint. Attestations 2 Medical Necessity Statement*: Per medical team Coding Level of Care Code Acute Code for [facility] Diagnoses Diverticulitis of intestine with perforation and abscess K57.80
--- NOTE | 2024-06-06 11:39 | PC.NURSE ---
Patient ambulated unit with use of walker, on room air, stand by assistance from this nurse. HR 130-140's however patient remained asymptomatic. Patient resting in chair at bedside currently with no complaints, patient states he feels better today and is having much less pain.
[2024-06-06] MEDS: LORazepam 2 mg/mL INJ 1 mL 0.5 MG IVP (12:28)
[2024-06-06 12:50] LABS: C.Diff PCR (Lab) NEGATIVE (Negative)
--- NOTE | 2024-06-06 13:04 | P.PN_ITS ---
Subjective 2 Subjective: Seen him at bedside this morning. Feels better and is doing clinically better. Pain is much better, requiring less medications. Had TIKA drain removed by surgery yesterday afternoon, colostomy bag draining brownish-green stools. Has belching but no more episodes of vomiting. Medications: Reviewed: Yes Vitals/I&O/Wt Last Vital Signs Temp 98.1 F 06/06/24 11:48 Pulse 108 H 06/06/24 12:00 Resp 19 H 06/06/24 12:00 BP 150/97 06/06/24 12:00 Pulse Ox 97 06/06/24 12:00 O2 Del Method Room Air 06/06/24 12:00 O2 Flow Rate 2 06/04/24 21:30 06/05/24 06/06/24 06/06/24 22:59 06:59 14:59 Intake Total 450 / 2111.25 1440 / 3551.25 560 / 560 Output Total 1350 / 2150 550 / 2700 Balance -900 / -38.75 890 / 851.25 560 / 560 Weight last 48 hrs Weight 84.595 kg Weight 81.647 kg Physical Exam 2 Narrative: General: He is alert awake oriented x 3, in severe distress due to abdominal pain but able to comprehend HEENT: PERRLA, pupils bilaterally equal and reactive, pallors not present Chest: Normal vesicular breath sounds, no added sounds, equal good air entry bilaterally CVS: S1-S2 regular, no murmurs, no tachycardia, no gallops, no rubs Abdomen: Soft, tender, slightly distended, surgical incision dressed with dry dressing, colostomy bag draining brownish-green stools, TIKA drain removed Neuro: No focal deficits, no facial deformity, AO x3, power 5/5 in all limbs Urinary Catheter Management: Wilkins: Cath Placed During This Visit: yes Reason for Continuing Indwelling Catheter: Accurate Measurement of Urinary Output in Critically Ill Patients Urinary Catheter Date of Insertion: 06/01/24 Urinary Catheter Time of Insertion: 11:35 Data 06/06/24 04:36 06/06/24 04:36 Micro: Microbiology 06/05/24 08:02 Blood Culture - Preliminary Blood NEGATIVE TO DATE 06/05/24 08:00 Blood Culture - Preliminary Blood NEGATIVE TO DATE 06/02/24 08:10 Gram Stain - Final Other Source Body Fluid Culture - Final A&P Assessment and plan (1) Sepsis: (2) Diverticulitis of intestine with perforation and abscess: Plan Vickey Kirkland is a 38 year old male with no significant past medical history who presents to the ER with worsening abdominal pain, poor po intake. He was recently discharged from the hospital after conservative management of a perforated sigmoid diverticulitis with abscess, patient received a drain at the end of last week and was discharged over the weekend.CT c/w 1. Increased pneumoperitoneum. 2. Persistent sigmoid diverticulitis. 3. Stable pelvic drain position. 4. Interval increase in size of pelvic abscess, consider drain malfunction. Elevated WBC, lactate, ESR and CRP likely secondary to severe sepsis. #Sepsis- secondary to perforated sigmoid diverticulitis. S/P Exploratory laparotomy, drainage of intra-abdominal abscess, sigmoid colectomy with end colostomy,19 [place]ic drain in the pelvis He is slightly hypertensive likely secondary to pain, but hemodynamically stable ID consult for further management. 05/27 FLUID COLLECTED FROM SIGMOID ABSCESS --Serratia plymuthi Antibiotics changed to IV meropenem 1g q8h Continue iV fluids for now. Pain control with IV dilaudid 0.5mg q2h prn. Will add fentanyl patch 25mcg q72h. DVT PPX with SCD GI PPX with iv pepcid 20mg bid He is full code for now. 06/02/24 Still in severe abdominal pain requiring IV Dilaudid 1 mg every 2 hours, morphine 2 mg every 4 hours. Vital signs stable. Continue antibiotics as per ID, IV levofloxacin, vancomycin and meropenem. Follow-up new TIKA drain culture Abdominal incisional packing was soaked 2/3rd in its length, was repacked. 06/03/24 He is postop day 2 status post exploratory laparotomy and sigmoid colectomy with end colostomy for perforated diverticulitis with a walled off abscess Vital signs stable but has been on the hypertensive side. Will start home medication p.o. amlodipine 10 mg daily WBC count 36 still, likely secondary to stress and complicated abdominal surgery. Will continue current antibiotics and follow-up ID for further recommendations.. As per surgery, abdominal incision looks healing and no significant bleeding noted. 06/04/24 He is postop day 3. WBC count still elevated at 32, he has been tachycardic and hypertensive likely secondary to pain which improves with IV Ativan as needed for anxiety. Antibiotics changed from vancomycin to Zyvox as per ID, meropenem increased to 2 g every 8 hours and continue levofloxacin. Blood cultures negative so far. Surgery concerned about elevated bilirubin of 1.7. Will check CMP in a.m. As per ID since he has been on broad-spectrum antibiotics and leukocytosis improving very slowly, question about intra-abdominal pathology/redeveloping abscess for resistance to antibiotics. Hence had a CT abdomen and pelvis with oral and IV contrast which showed 1. Patient is status post sigmoid colectomy with end colostomy in the LEFT lower quadrant since the prior study of 06/01/2024. The percutaneous drainage catheter is been removed. 2. Pelvic abscess is no longer present but there is soft tissue stranding within the mesentery and omentum of the abdomen and pelvis. This may be edema but infection is not excluded. 3. There are a few scattered pockets of fluid and free air. There is no abscess. The amount of free air has improved since 06/01/2024. 4. Continued small bowel obstruction or ileus. 5. Surgical drain enters the RIGHT abdominal wall with the tip terminating towards the descending colon. 6. Nasogastric tube present in a distended stomach. No new probable abscess as per radiology. But has pockets of fluid which could be likely reactive secondary to surgery. Will continue to monitor and IV antibiotics. Blood pressure medications adjusted, amlodipine increased to 10 mg daily and added lisinopril 5 mg daily Will continue IV Ativan 0.5 mg every 6 hours as needed Continue pain management NG tube draining brownish fluid which was Hemoccult positive. Likely due to insertional injury. Will continue to monitor CBC. Will follow-up surgery in a.m. for starting clear liquid diet 06/05/24 He is postop day 4. WBC count slowly trending down to 31. He still has been hypertensive and tachycardic, getting better with IV metoprolol 5 mg as needed. Antibiotics changed back to vancomycin, levofloxacin and meropenem as per ID. Blood cultures negative so far. He has been feeling better and clinically doing better, had a large stool amount in colostomy bag. Minimal drainage in TIKA drain. Abdominal examination improved. Will continue current management. 06/06/24 He is postop day 5. WBC count trending down to 15.6. Hypertension and tachycardia improved. He is doing much better clinically, pain controlled on IV Tylenol. He still has belching but no vomiting, as per surgery will hold off on opioids in view of developing ileus. Has large stool amount in colostomy bag, greenish in color, will recheck for C. difficile. ITKA drain discontinued yesterday afternoon. Abdominal exam improved. As per ID recommendations, will continue IV vancomycin and meropenem. IV levofloxacin discontinued. Discussed with surgery about repeat CT after at least 1 week of IV antibiotics to follow- up on fluid/pus pockets on CT from 06/04. Will need a PICC line for long-term IV antibiotics and ID follow-up as an outpatient. Blood cultures have been negative to date Attestations 2 Medical Necessity Statement*: will require ongoing hospitalization for post op management of perforated diverticulitis s/p colectomy and pain control, management of colostomy and IV antibiotics Time Spent in Patient Care: 20 minutes Coding Level of Care Code Acute Code for [facility] Diagnoses Sepsis A41.9 Diverticulitis of intestine with perforation and abscess K57.80 Time Spent (min) 20
[2024-06-06] MEDS: sodium chloride 0.9% 1,000 ML 75 ML IV (14:30)
--- NOTE | 2024-06-06 15:42 | PC.NURSE ---
Patient angered by discontinuation of morphine, several attempts to educate patient on effects of opiates on intestines, and the healing process. Patient exhibits anger and states, this whole hospital is trying to kill me, my white blood cell count has just started to come down and now I can feel it climbing. Discussed with patient that antibiotics are helping with infection and not morphine. patient resistant to teaching. Dr. Vinson to bedside to discuss goals of care with patient. Verbal order for morphine obtained from Dr. Vinson and administered per SEP.
--- NOTE | 2024-06-06 16:04 | PC.NURSE ---
Patient continues to be upset, patient states, I will just have one of my friends bring me something for pain, I know a lot of people who can bring me marijuana or anything. Patient advised against this, and educated on pain meds available which is morphine, the same dose and frequency as before, patient is resistant to teaching.
--- NOTE | 2024-06-06 16:54 | PC.NURSE ---
Patient stated he smelled someone vaping, and that he heard nursing staff at the desk talking that they caught the patient next door vaping. This nurse informed the patient that no patient is vaping in ICU, patient reassured that no staff have intervened for anything of this nature.
[2024-06-06] MEDS: vancomycin 2,000 MG/400 ML PIGGYBACK 200 MG IV (17:48)
--- NOTE | 2024-06-06 18:06 | PC.NURSE ---
During 1800 rounding and med pass, patient updated on next available time morphine can be given, patient stated, that's okay I don't even care once my visitor comes, I will be knocked out and will sleep.
[2024-06-07] VITALS (22 sets, daily range): BP systolic 118–176; BP diastolic 74–101; PULSE 82–124; RESP 17–29; TEMP 36.7–37.7; O2SAT 95–98
[2024-06-07] MEDS: vancomycin 2,000 MG/400 ML PIGGYBACK 200 MG IV (01:30)
[2024-06-07] MEDS: meropenem 1,000 mg SDV 2000 MG IVP ×3 (02:38→18:12)
[2024-06-07] MEDS: LORazepam 2 mg/mL INJ 1 mL 0.5 MG IVP ×3 (02:56→23:02)
[2024-06-07] MEDS: morphine 4 mg/mL SDV 1 mL 2 MG IVP ×3 (02:57→23:01)
[2024-06-07] MEDS: ondansetron 2 mg/ML SDV 2 mL 4 MG IVP ×2 (03:05→12:51)
[2024-06-07] MEDS: sodium chloride 0.9% 1,000 ML 75 ML IV ×2 (03:32→18:12)
--- NOTE | 2024-06-07 05:03 | PC.NURSE ---
Spoke with Dr. Broderick in reference to patient's worsening anxiety. Dr. Broderick came to bedside to assess patient status. Received orders for 0.5mg Ativan PRN.
[2024-06-07 05:09] LABS: Basophils % 0.1 %; Eosinophils # 0.4 10^3/uL (0.0-0.8); Eosinophils % 2.4 %; Hematocrit 27.2 % (37-53); Lymphocytes # 1.7 10^3/uL (0.8-4.8); Lymphocytes % 9.9 %; Mean Corpuscular HGB Conc 32.4 g/dL (30-55); Mean Corpuscular Hemoglobin 30.7 pg (27-33); Mean Corpuscular Volume 94.8 fl (82-101); Mean Platelet Volume 9.5 fL (7.4-10.4); Monocytes # 1.6 10^3/uL (0.2-0.9); Monocytes % 9.5 %; Neutrophils # 13.19 10^3/uL (1.8-7.7); Neutrophils % 76.8 %; Nucleated Red Blood Cells % 0 %; Platelet Count 339 10^3/cmm (157-399); Red Blood Count 2.87 10^6/uL (3.85-5.65); Red Cell Distribution Width 12.6 % (12.1-15.1); White Blood Count 17.19 10^3/uL (3.29-11.43)
[2024-06-07 05:24] LABS: Alanine Aminotransferase 14 U/L (0-41); Albumin Level 2.7 g/dL (3.5-5.2); Alkaline Phosphatase 53 U/L (40-130); Anion Gap 12.5 (5-19); Aspartate Amino Transferase 12 U/L (0-40); Blood Urea Nitrogen 11 mg/dL (6-20); Carbon Dioxide 26 mmol/L (22-29); Chloride 102 mmol/L (98-107); Creatine Phosphokinase 45 U/L (39-308); Creatinine Clr Calc Pharmacy 378.6019; Globulin 2.3 g/dL (1.3-4.6); Glomerular Filtration Rate 332.1 mL/min (90-130); Glucose 91 mg/dL (65-115); Osmolality Calculated 283 mOsm/kg (285-295); Potassium 3.5 mmol/L (3.5-5.1); Sodium 137 mmol/L (136-145); Total Bilirubin 1.1 mg/dL (0.15-1.2)
[2024-06-07] MEDS: amlodipine 10 mg Tablet PO (08:46)
[2024-06-07] MEDS: lisinopril 5 mg Tablet PO (08:46)
[2024-06-07] MEDS: lidocaine 5% Patch 1 PATCH TOPICAL (08:46)
[2024-06-07] MEDS: pantoprazole 40 mg SDV IVP ×2 (08:46→18:13)
--- NOTE | 2024-06-07 10:56 | P.PN_ITS ---
Subjective 2 Subjective: Leukocytosis at 17,000 today. Patient has been irritable during course of the night. He is concerned about his ileus persisting due to narcotics therefore is refusing multiple doses of morphine overnight. Additionally today he reports that he will not be able to return home as his rent has been unpaid for the last 3 months. 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 States that over the last 3 days electricity supply to his apartment has been cut off. His children are currently living with their grandparents. In this condition he does not feel he will be able to return home safely to administer himself the IV antibiotics at home. Overall also with the colostomy he feels very overwhelmed at the thought of returning home alone. He is requesting medication to help with anxiety once able to tolerate po intake. He appears to be mixing up events from both admissions today. For instance, wants to know the dteails of [facility] rounding on him every day, etc. Medications: Reviewed: Yes Vitals/I&O/Wt Last Vital Signs Temp 99.2 F 06/07/24 04:00 Pulse 90 06/07/24 06:00 Resp 24 H 06/07/24 10:47 BP 126/78 06/07/24 06:00 Pulse Ox 97 06/07/24 10:47 O2 Del Method Room Air 06/07/24 06:00 O2 Flow Rate 1 06/06/24 14:00 06/06/24 06/07/24 06/07/24 22:59 06:59 14:59 Intake Total 500 / 2165 1000 / 3165 Output Total 2000 / 3200 850 / 4050 Balance -1500 / -1035 150 / -885 Weight last 48 hrs Weight 81.556 kg Weight 84.595 kg Physical Exam 2 Narrative: General: No acute distress, AO x3 HEENT: PERRLA, pupils bilaterally equal and reactive, pallors not present Chest: Normal vesicular breath sounds, no added sounds, equal good air entry bilaterally CVS: S1-S2 regular, no murmurs, no tachycardia, no gallops, no rubs Abdomen: Soft, distended, colostomy with stool and gas. Abdominal wound with surgical dressing in place Neuro: No focal deficits, no facial deformity, AO x3, power 5/5 in all limb Urinary Catheter Management: Wilkins: Cath Placed During This Visit: yes Reason for Continuing Indwelling Catheter: Accurate Measurement of Urinary Output in Critically Ill Patients Urinary Catheter Date of Insertion: 06/01/24 Urinary Catheter Time of Insertion: 11:35 Data 06/07/24 04:53 06/07/24 04:53 Micro: Microbiology 06/01/24 16:46 Blood Culture - Final Blood NO GROWTH AFTER 5 DAYS 06/01/24 16:42 Blood Culture - Final Blood NO GROWTH AFTER 5 DAYS 06/05/24 08:02 Blood Culture - Preliminary Blood NEGATIVE TO DATE 06/05/24 08:00 Blood Culture - Preliminary Blood NEGATIVE TO DATE A&P Assessment and plan (1) Diverticulitis of intestine with perforation and abscess: Plan improving fever curve,nausea and vomiting leukocytosis 31--> 15--> 17- continue to monitor Stoma has stool and gas output. Drain culture from 1127 negative to date. OR culture not available from 1126. IR drain/abscess culture from 05/27/2024 with Serratia plymuthica. Susceptibilities confirmed from micro lab. Isolate is sensitive to ertapenem with an LOCO of 0.5, imipenem LOCO of 1. meropenem suscpetibility pending. clinical worsening on outpatient abx not likely to be related to abx failure given noted sensitivities. vancomycin resumed, however trough 10 on 1500mg every 8 hrs. Blood cx negative to date Plan: Continue meropenem 2 g IV every 8 hours d/c vancomycin as trough continues to be suboptimal on increasing doses. Additionally anticipate patient will discharge on at least another 2 to 4 weeks of IV antibiotics depending on clinical progress. Will change to daptomycin 8 mg/g IV every 24 hours for outpatient use given once daily administration, inability to be able to monitor troughs closely enough on every 8 hours dosing. Will change iv vancomycin to daptomycin now to replicate anticipated outpatient regimen Check baseline CPK At discharge will plan to narrrow meropenem to imipenem 1g iv daily Patient reports he will be unable to return home after d/c- case management consulted for disposition planning Will continue to follow Attestations 2 Medical Necessity Statement*: per admitting Coding Level of Care Code Acute Code for Chg Fwd High MDM includes number and complexity of problems actively addressed during encounter, amount and/or complexity of data reviewed/ordered and described risk of complication, morbidity or mortality of management as documented Diagnoses Diverticulitis of intestine with perforation and abscess K57.94
--- NOTE | 2024-06-07 12:24 | PM.PN ---
Subjective Subjective: This a 39-year-old male who is postoperative day 6 status post sigmoid colectomy and end colostomy for perforated sigmoid diverticulitis complicated with abscess which failed conservative management and IR drainage. Patient is doing better clinically over the last 24 hours, no nausea or vomiting, ostomy has been productive of gas and stool, pain control has been improved, Wilkins was removed and patient is voiding he is looking much better this morning. Vitals/I&O/Wt Last Vital Signs Temp 99.8 F H 06/07/24 09:00 Pulse 105 H 06/07/24 11:00 Resp 23 H 06/07/24 11:00 BP 176/101 06/07/24 11:00 Pulse Ox 96 06/07/24 11:00 O2 Del Method Room Air 06/07/24 09:00 O2 Flow Rate 1 06/06/24 14:00 06/06/24 06/07/24 06/07/24 22:59 06:59 14:59 Intake Total 500 / 2165 1000 / 3165 100 / 100 Output Total 2000 / 3200 850 / 4050 735 / 735 Balance -1500 / -1035 150 / -885 -635 / -635 Weight last 48 hrs Weight 179 lb 12.8 oz Weight 186 lb 8 oz Physical Exam GI: OTHER: Abdomen soft, mildly distended, minimally tender, surgical incision covered with dressing the ostomy has output of gas and stool. There is bowel sounds although they are decreased. Urinary Catheter Management: Wilkins: Cath Placed During This Visit: yes Reason for Continuing Indwelling Catheter: Accurate Measurement of Urinary Output in Critically Ill Patients Urinary Catheter Date of Insertion: 06/01/24 Urinary Catheter Time of Insertion: 11:35 Data 06/07/24 04:53 06/07/24 04:53 Micro: Microbiology 06/01/24 16:46 Blood Culture - Final Blood NO GROWTH AFTER 5 DAYS 06/01/24 16:42 Blood Culture - Final Blood NO GROWTH AFTER 5 DAYS 06/05/24 08:02 Blood Culture - Preliminary Blood NEGATIVE TO DATE 06/05/24 08:00 Blood Culture - Preliminary Blood NEGATIVE TO DATE A&P Assessment and plan (1) Diverticulitis of intestine with perforation and abscess: Plan Overall patient is showing very good progression over the last 24 hours, [place] [address], he has been afebrile. Has been able to ambulate states that he is very hungry. The ostomy is productive. At this point I think it will be safe to advance his diet to clear liquid diet, I have encouraged him to ambulate as I do still think that he has significant ileus. From the surgical standpoint we will continue with a slow advancement of diet if he tolerates clear liquid diet over the next 24 hours I will advance him to full liquids and after that to regular diet as tolerated. Dressing changes will be continued to be done once a day with slight packing of the midline wound. Once patient is awake from the ICU case management will be involved for placement. All other management per medical ICU team and infectious diseases. Attestations Medical Necessity Statement*: Per medical team Coding Level of Care Code Acute Code for [facility] Diagnoses Diverticulitis of intestine with perforation and abscess K57.80
--- NOTE | 2024-06-07 13:59 | P.PN_ITS ---
Subjective 2 Subjective: Seen this morning. Patient afebrile overnight. Leukocytosis still present, WBC 17,000. Discussed in detail with infectious disease Dr. Patient requesting to move out of ICU. He also states he is hungry and would like to eat something. No acute events overnight. C. difficile is negative Is having significant output from ostomy. Vitals/I&O/Wt Last Vital Signs Temp 99.8 F H 06/07/24 09:00 Pulse 105 H 06/07/24 11:00 Resp 23 H 06/07/24 11:00 BP 176/101 06/07/24 11:00 Pulse Ox 96 06/07/24 11:00 O2 Del Method Room Air 06/07/24 09:00 O2 Flow Rate 1 06/06/24 14:00 06/06/24 06/07/24 06/07/24 22:59 06:59 14:59 Intake Total 500 / 2165 1000 / 3165 500 / 500 Output Total 2000 / 3200 850 / 4050 735 / 735 Balance -1500 / -1035 150 / -885 -235 / -235 Weight last 48 hrs Weight 81.556 kg Weight 84.595 kg Physical Exam 2 Narrative: General: No acute distress, AO x3 HEENT: PERRLA, pupils bilaterally equal and reactive, pallors not present Chest: Normal vesicular breath sounds, no added sounds, equal good air entry bilaterally CVS: S1-S2 regular, no murmurs, no tachycardia, no gallops, no rubs Abdomen: Soft, distended, colostomy with stool and gas. Abdominal wound with surgical dressing in place Neuro: No focal deficits, no facial deformity, AO x3, Urinary Catheter Management: Wilkins: Cath Placed During This Visit: yes Reason for Continuing Indwelling Catheter: Accurate Measurement of Urinary Output in Critically Ill Patients Urinary Catheter Date of Insertion: 06/01/24 Urinary Catheter Time of Insertion: 11:35 Data 06/07/24 04:53 06/07/24 04:53 Micro: Microbiology 06/01/24 16:46 Blood Culture - Final Blood NO GROWTH AFTER 5 DAYS 06/01/24 16:42 Blood Culture - Final Blood NO GROWTH AFTER 5 DAYS 06/05/24 08:02 Blood Culture - Preliminary Blood NEGATIVE TO DATE 06/05/24 08:00 Blood Culture - Preliminary Blood NEGATIVE TO DATE A&P Assessment and plan (1) Sepsis: (2) Diverticulitis of intestine with perforation and abscess: Plan Vickey Kirkland is a 38 year old male with no significant past medical history who presents to the ER with worsening abdominal pain, poor po intake. He was recently discharged from the hospital after conservative management of a perforated sigmoid diverticulitis with abscess, patient received a drain at the end of last week and was discharged over the weekend.CT c/w 1. Increased pneumoperitoneum. 2. Persistent sigmoid diverticulitis. 3. Stable pelvic drain position. 4. Interval increase in size of pelvic abscess, consider drain malfunction. Elevated WBC, lactate, ESR and CRP likely secondary to severe sepsis. #Sepsis- secondary to perforated sigmoid diverticulitis. S/P Exploratory laparotomy, drainage of intra-abdominal abscess, sigmoid colectomy with end colostomy,19 Prydeinig drain in the pelvis He is slightly hypertensive likely secondary to pain, but hemodynamically stable ID consult for further management. 05/27 FLUID COLLECTED FROM SIGMOID ABSCESS --Serratia plymuthi Antibiotics changed to IV meropenem 1g q8h Continue iV fluids for now. Pain control with IV dilaudid 0.5mg q2h prn. Will add fentanyl patch 25mcg q72h. DVT PPX with SCD GI PPX with iv pepcid 20mg bid He is full code for now. 06/02/24 Still in severe abdominal pain requiring IV Dilaudid 1 mg every 2 hours, morphine 2 mg every 4 hours. Vital signs stable. Continue antibiotics as per ID, IV levofloxacin, vancomycin and meropenem. Follow-up new TIKA drain culture Abdominal incisional packing was soaked 2/3rd in its length, was repacked. 06/03/24 He is postop day 2 status post exploratory laparotomy and sigmoid colectomy with end colostomy for perforated diverticulitis with a walled off abscess Vital signs stable but has been on the hypertensive side. Will start home medication p.o. amlodipine 10 mg daily WBC count 36 still, likely secondary to stress and complicated abdominal surgery. Will continue current antibiotics and follow-up ID for further recommendations.. As per surgery, abdominal incision looks healing and no significant bleeding noted. 06/04/24 He is postop day 3. WBC count still elevated at 32, he has been tachycardic and hypertensive likely secondary to pain which improves with IV Ativan as needed for anxiety. Antibiotics changed from vancomycin to Zyvox as per ID, meropenem increased to 2 g every 8 hours and continue levofloxacin. Blood cultures negative so far. Surgery concerned about elevated bilirubin of 1.7. Will check CMP in a.m. As per ID since he has been on broad-spectrum antibiotics and leukocytosis improving very slowly, question about intra-abdominal pathology/redeveloping abscess for resistance to antibiotics. Hence had a CT abdomen and pelvis with oral and IV contrast which showed 1. Patient is status post sigmoid colectomy with end colostomy in the LEFT lower quadrant since the prior study of 06/01/2024. The percutaneous drainage catheter is been removed. 2. Pelvic abscess is no longer present but there is soft tissue stranding within the mesentery and omentum of the abdomen and pelvis. This may be edema but infection is not excluded. 3. There are a few scattered pockets of fluid and free air. There is no abscess. The amount of free air has improved since 06/01/2024. 4. Continued small bowel obstruction or ileus. 5. Surgical drain enters the RIGHT abdominal wall with the tip terminating towards the descending colon. 6. Nasogastric tube present in a distended stomach. No new probable abscess as per radiology. But has pockets of fluid which could be likely reactive secondary to surgery. Will continue to monitor and IV antibiotics. Blood pressure medications adjusted, amlodipine increased to 10 mg daily and added lisinopril 5 mg daily Will continue IV Ativan 0.5 mg every 6 hours as needed Continue pain management NG tube draining brownish fluid which was Hemoccult positive. Likely due to insertional injury. Will continue to monitor CBC. Will follow-up surgery in a.m. for starting clear liquid diet 06/05/24 He is postop day 4. WBC count slowly trending down to 31. He still has been hypertensive and tachycardic, getting better with IV metoprolol 5 mg as needed. Antibiotics changed back to vancomycin, levofloxacin and meropenem as per ID. Blood cultures negative so far. He has been feeling better and clinically doing better, had a large stool amount in colostomy bag. Minimal drainage in TIKA drain. Abdominal examination improved. Will continue current management. 06/06/24 He is postop day 5. WBC count trending down to 15.6. Hypertension and tachycardia improved. He is doing much better clinically, pain controlled on IV Tylenol. He still has belching but no vomiting, as per surgery will hold off on opioids in view of developing ileus. Has large stool amount in colostomy bag, greenish in color, will recheck for C. difficile. TIKA drain discontinued yesterday afternoon. Abdominal exam improved. As per ID recommendations, will continue IV vancomycin and meropenem. IV levofloxacin discontinued. Discussed with surgery about repeat CT after at least 1 week of IV antibiotics to follow- up on fluid/pus pockets on CT from 06/04. Will need a PICC line for long-term IV antibiotics and ID follow-up as an outpatient. Blood cultures have been negative to date 06/07/2024 -Patient is postop day 6. WBC count 17,000. Patient still hypertensive. Most likely secondary to pain. He refused taking any more opioids. He states that he was worried about his ileus. Overnight hospitalist did discuss with him regarding pain medications. He has agreed to take some pain medication at this time. ? Ostomy having good amount of output. Will start clear liquids. ? General Surgery following patient. Will plan to repeat imaging with a neck 72 hours. ? Patient will need PICC line for long-term IV antibiotics and ID follow-up as an outpatient. Blood cultures negative to date. ? Discussed with patient regarding possibility of select referral. ? May transfer to floor today. Will slowly advance diet as tolerated. ?Continue daptomycin and meropenem Attestations 2 Medical Necessity Statement*: will require ongoing hospitalization for post op management of perforated diverticulitis s/p colectomy and pain control, management of colostomy and IV antibiotics Time Spent in Patient Care: 20 minutes Diagnoses Sepsis A41.9 Diverticulitis of intestine with perforation and abscess K57.80
[2024-06-07] MEDS: SODIUM CHLORIDE 0.9% IV (14:18)
[2024-06-07] MEDS: DAPTOMYCIN IV (14:18)
[2024-06-07] MEDS: sodium chloride 0.9% 500 ML 999 ML IV (15:05)
[2024-06-08] VITALS (12 sets, daily range): BP systolic 118–146; BP diastolic 75–86; PULSE 77–113; RESP 15–18; TEMP 36.7–37.7; O2SAT 95–98
[2024-06-08] MEDS: oxyCODONE 5 mg IR Tab/Cap PO ×2 (01:22→21:41)
[2024-06-08] MEDS: meropenem 1,000 mg SDV 2000 MG IVP ×3 (01:23→18:01)
[2024-06-08] MEDS: scopolamine 1.5 Patch 1 PATCH TRANSDERMA (01:23)
[2024-06-08 05:28] LABS: Basophils % 0.1 %; Eosinophils # 0.4 10^3/uL (0.0-0.8); Eosinophils % 2.4 %; Hematocrit 27.3 % (37-53); Lymphocytes # 1.6 10^3/uL (0.8-4.8); Lymphocytes % 10.2 %; Mean Corpuscular HGB Conc 33.3 g/dL (30-55); Mean Corpuscular Hemoglobin 31.6 pg (27-33); Mean Corpuscular Volume 94.8 fl (82-101); Mean Platelet Volume 9.3 fL (7.4-10.4); Monocytes # 1.3 10^3/uL (0.2-0.9); Monocytes % 8.2 %; Neutrophils # 12.43 10^3/uL (1.8-7.7); Neutrophils % 78.1 %; Nucleated Red Blood Cells % 0 %; Platelet Count 322 10^3/cmm (157-399); Red Blood Count 2.88 10^6/uL (3.85-5.65); Red Cell Distribution Width 12.5 % (12.1-15.1); White Blood Count 15.92 10^3/uL (3.29-11.43)
[2024-06-08 05:47] LABS: Alanine Aminotransferase 17 U/L (0-41); Albumin Level 2.6 g/dL (3.5-5.2); Alkaline Phosphatase 57 U/L (40-130); Anion Gap 12.4 (5-19); Aspartate Amino Transferase 17 U/L (0-40); Blood Urea Nitrogen 7 mg/dL (6-20); Calcium 7.8 mg/dL (8.5-10.5); Carbon Dioxide 27 mmol/L (22-29); Chloride 100 mmol/L (98-107); Creatinine Clr Calc Pharmacy 280.1708; Globulin 2.4 g/dL (1.3-4.6); Glomerular Filtration Rate 238.3 mL/min (90-130); Glucose 105 mg/dL (65-115); Osmolality Calculated 280 mOsm/kg (285-295); Potassium 3.4 mmol/L (3.5-5.1); Sodium 136 mmol/L (136-145); Total Bilirubin 0.8 mg/dL (0.15-1.2)
[2024-06-08] MEDS: morphine 4 mg/mL SDV 1 mL 2 MG IVP ×2 (06:56→12:54)
[2024-06-08] MEDS: lidocaine 5% Patch 1 PATCH TOPICAL (09:19)
[2024-06-08] MEDS: pantoprazole 40 mg SDV IVP ×2 (09:21→18:02)
[2024-06-08] MEDS: lisinopril 5 mg Tablet PO (09:21)
[2024-06-08] MEDS: LORazepam 2 mg/mL INJ 1 mL 0.5 MG IVP (09:21)
[2024-06-08] MEDS: amlodipine 10 mg Tablet PO (09:21)
--- NOTE | 2024-06-08 10:28 | PM.PN ---
Subjective Subjective: Patient has been doing okay over the last 24 hours, has been afebrile, tachycardia mostly resolved only complaint is pain especially in the pelvic area and left lower quadrant. Patient states that the pain had become worse this morning and does not want to get out of bed or ambulate because of pain. Vitals/I&O/Wt Last Vital Signs Temp 99.2 F 06/08/24 07:55 Pulse 92 06/08/24 07:55 Resp 17 06/08/24 07:55 BP 146/79 06/08/24 07:55 Pulse Ox 97 06/08/24 07:55 O2 Del Method Room Air 06/08/24 07:55 O2 Flow Rate 1 06/06/24 14:00 06/07/24 06/08/24 06/08/24 22:59 06:59 14:59 Intake Total 1720 / 2520 720 / 3240 240 / 240 Output Total 900 / 1635 1400 / 3035 Balance 820 / 885 -680 / 205 240 / 240 Weight last 48 hrs Weight 180 lb 8 oz Weight 179 lb 12.8 oz Physical Exam GI: OTHER: Abdominal exam is benign, abdomen slightly distended, minimally tender, ostomy is productive of gas and stool, midline incision was evaluated and is healthy no evidence of abscess. There is good bowel sounds which actually are improved from yesterday in all quadrants. Urinary Catheter Management: Wilkins: Cath Placed During This Visit: yes Reason for Continuing Indwelling Catheter: Accurate Measurement of Urinary Output in Critically Ill Patients Urinary Catheter Date of Insertion: 06/01/24 Urinary Catheter Time of Insertion: 11:35 Data 06/08/24 05:16 06/08/24 05:16 A&P Assessment and plan (1) Diverticulitis of intestine with perforation and abscess: (2) Sepsis: Plan This is a 39-year-old male who now is postoperative day 7 status post exploratory laparotomy sigmoid colectomy with end ileostomy for perforated acute very reticulitis with abscess which failed conservative management and IR drainage. Patient has had a difficult postoperative course regarding pain control, pain was better controlled up to yesterday but this morning he is having significant pain in the lower abdomen, we have reduced significantly his amount of pain medication in addition to that his fentanyl patch is due for replacement today so this may have something to do with his persistent pain. Clinically over overall he is significantly improved he is afebrile tachycardia has resolved there is improvement of the white count, the ostomy has been productive of gas and stool. His TIKA drain was removed 2 days ago because of low output. He was started on clear liquid diet and has been tolerated and now his has been advanced to full liquids. At the moment I do not see an indication for any additional intervention of reimaging, in the case of worsening leukocytosis or fever we will think about repeat a CT scan of the abdomen, have encouraged the patient to ambulate I think this will be the best thing for him as I do think he might have some degree of ileus from all the medications that he has received as well intensive IV fluid resuscitation. He shows understanding is going to try to ambulate today. The plan will be to transition to acute care rehab in the next 48 hours, as patient will require 2 to 4 weeks of antibiotics and has no support system at home to provide wound care and ostomy care. Attestations Medical Necessity Statement*: Per medical team Coding Level of Care Code Acute Code for [facility] Diagnoses Diverticulitis of intestine with perforation and abscess K57.80 Sepsis A41.9
[2024-06-08] MEDS: sodium chloride 0.9% 1,000 ML 75 ML IV (10:49)
--- NOTE | 2024-06-08 12:51 | P.PN_ITS ---
Subjective 2 Subjective: Seen this morning. He states he is concerned he has not had much output since yesterday night. He feels very bloated as well. Complains of left lower quadrant pain. Other than that is doing okay. He is on room air vitals are stable. White count down to 15,000. Potassium 3.4 Tolerated clear liquid diet. Has been transition to full liquids this morning. Seen by general surgery. Wound has been evaluated. [facility] had been [facility] Vitals/I&O/Wt Last Vital Signs Temp 98.9 F 06/08/24 12:00 Pulse 96 06/08/24 12:00 Resp 16 06/08/24 12:00 BP 132/81 06/08/24 12:00 Pulse Ox 98 06/08/24 12:00 O2 Del Method Room Air 06/08/24 12:00 O2 Flow Rate 1 06/06/24 14:00 06/07/24 06/08/24 06/08/24 22:59 06:59 14:59 Intake Total 1720 / 2520 720 / 3240 1600 / 1600 Output Total 900 / 1635 1400 / 3035 1999 / 1999 Balance 820 / 885 -680 / 205 -400 / -400 Weight last 48 hrs Weight 81.873 kg Weight 81.556 kg Physical Exam 2 Narrative: General: No acute distress, AO x3 HEENT: PERRLA, pupils bilaterally equal and reactive, pallors not present Chest: Normal vesicular breath sounds, no added sounds, equal good air entry bilaterally CVS: S1-S2 regular, no murmurs, no tachycardia, no gallops, no rubs Abdomen: Soft, distended, colostomy with stool and gas. Abdominal wound with surgical dressing in place, minimally tender. Bowel sounds present and active. Neuro: No focal deficits, no facial deformity, AO x3, Urinary Catheter Management: Wilkins: Cath Placed During This Visit: yes Reason for Continuing Indwelling Catheter: Accurate Measurement of Urinary Output in Critically Ill Patients Urinary Catheter Date of Insertion: 06/01/24 Urinary Catheter Time of Insertion: 11:35 Data 06/08/24 05:16 06/08/24 05:16 A&P Assessment and plan (1) Sepsis: (2) Diverticulitis of intestine with perforation and abscess: Plan Vickey Kirkland is a 38 year old male with no significant past medical history who presents to the ER with worsening abdominal pain, poor po intake. He was recently discharged from the hospital after conservative management of a perforated sigmoid diverticulitis with abscess, patient received a drain at the end of last week and was discharged over the weekend.CT c/w 1. Increased pneumoperitoneum. 2. Persistent sigmoid diverticulitis. 3. Stable pelvic drain position. 4. Interval increase in size of pelvic abscess, consider drain malfunction. Elevated WBC, lactate, ESR and CRP likely secondary to severe sepsis. #Sepsis- secondary to perforated sigmoid diverticulitis. S/P Exploratory laparotomy, drainage of intra-abdominal abscess, sigmoid colectomy with end colostomy,19 Somali drain in the pelvis He is slightly hypertensive likely secondary to pain, but hemodynamically stable ID consult for further management. 05/27 FLUID COLLECTED FROM SIGMOID ABSCESS --Serratia plymuthi Antibiotics changed to IV meropenem 1g q8h Continue iV fluids for now. Pain control with IV dilaudid 0.5mg q2h prn. Will add fentanyl patch 25mcg q72h. DVT PPX with SCD GI PPX with iv pepcid 20mg bid He is full code for now. 06/02/24 Still in severe abdominal pain requiring IV Dilaudid 1 mg every 2 hours, morphine 2 mg every 4 hours. Vital signs stable. Continue antibiotics as per ID, IV levofloxacin, vancomycin and meropenem. Follow-up new TIKA drain culture Abdominal incisional packing was soaked 2/3rd in its length, was repacked. 06/03/24 He is postop day 2 status post exploratory laparotomy and sigmoid colectomy with end colostomy for perforated diverticulitis with a walled off abscess Vital signs stable but has been on the hypertensive side. Will start home medication p.o. amlodipine 10 mg daily WBC count 36 still, likely secondary to stress and complicated abdominal surgery. Will continue current antibiotics and follow-up ID for further recommendations.. As per surgery, abdominal incision looks healing and no significant bleeding noted. 06/04/24 He is postop day 3. WBC count still elevated at 32, he has been tachycardic and hypertensive likely secondary to pain which improves with IV Ativan as needed for anxiety. Antibiotics changed from vancomycin to Zyvox as per ID, meropenem increased to 2 g every 8 hours and continue levofloxacin. Blood cultures negative so far. Surgery concerned about elevated bilirubin of 1.7. Will check CMP in a.m. As per ID since he has been on broad-spectrum antibiotics and leukocytosis improving very slowly, question about intra-abdominal pathology/redeveloping abscess for resistance to antibiotics. Hence had a CT abdomen and pelvis with oral and IV contrast which showed 1. Patient is status post sigmoid colectomy with end colostomy in the LEFT lower quadrant since the prior study of 06/01/2024. The percutaneous drainage catheter is been removed. 2. Pelvic abscess is no longer present but there is soft tissue stranding within the mesentery and omentum of the abdomen and pelvis. This may be edema but infection is not excluded. 3. There are a few scattered pockets of fluid and free air. There is no abscess. The amount of free air has improved since 06/01/2024. 4. Continued small bowel obstruction or ileus. 5. Surgical drain enters the RIGHT abdominal wall with the tip terminating towards the descending colon. 6. Nasogastric tube present in a distended stomach. No new probable abscess as per radiology. But has pockets of fluid which could be likely reactive secondary to surgery. Will continue to monitor and IV antibiotics. Blood pressure medications adjusted, amlodipine increased to 10 mg daily and added lisinopril 5 mg daily Will continue IV Ativan 0.5 mg every 6 hours as needed Continue pain management NG tube draining brownish fluid which was Hemoccult positive. Likely due to insertional injury. Will continue to monitor CBC. Will follow-up surgery in a.m. for starting clear liquid diet 06/05/24 He is postop day 4. WBC count slowly trending down to 31. He still has been hypertensive and tachycardic, getting better with IV metoprolol 5 mg as needed. Antibiotics changed back to vancomycin, levofloxacin and meropenem as per ID. Blood cultures negative so far. He has been feeling better and clinically doing better, had a large stool amount in colostomy bag. Minimal drainage in TIKA drain. Abdominal examination improved. Will continue current management. 06/06/24 He is postop day 5. WBC count trending down to 15.6. Hypertension and tachycardia improved. He is doing much better clinically, pain controlled on IV Tylenol. He still has belching but no vomiting, as per surgery will hold off on opioids in view of developing ileus. Has large stool amount in colostomy bag, greenish in color, will recheck for C. difficile. TIKA drain discontinued yesterday afternoon. Abdominal exam improved. As per ID recommendations, will continue IV vancomycin and meropenem. IV levofloxacin discontinued. Discussed with surgery about repeat CT after at least 1 week of IV antibiotics to follow- up on fluid/pus pockets on CT from 06/04. Will need a PICC line for long-term IV antibiotics and ID follow-up as an outpatient. Blood cultures have been negative to date 06/08/2024 -Patient is postop day 7. WBC count 15. Vitals are stable today ? Ostomy having good amount of output. Continue clear liquid diet. General surgery planning to advance later today. ? General Surgery following patient. If white count elevates further may consider reimaging however there is no need at this time. Clinically patient is improving. Discussed with general surgery in detail. ? Patient will need PICC line for long-term IV antibiotics and ID follow-up as an outpatient. Blood cultures negative to date. ? Patient has been referred to LTAC facility. ? Will slowly advance diet as tolerated. ?Continue daptomycin and meropenem -Patient encouraged to ambulate. Attestations 2 Medical Necessity Statement*: will require ongoing hospitalization for post op management of perforated diverticulitis s/p colectomy and pain control, management of colostomy and IV antibiotics Time Spent in Patient Care: 20 minutes Diagnoses Sepsis A41.9 Diverticulitis of intestine with perforation and abscess K57.80
[2024-06-08] MEDS: fentaNYL 25 mcg Patch 1 PATCH TRANSDERMA (15:09)
[2024-06-08] MEDS: SODIUM CHLORIDE 0.9% IV (15:09)
[2024-06-08] MEDS: DAPTOMYCIN IV (15:09)
[2024-06-09] VITALS (12 sets, daily range): BP systolic 117–153; BP diastolic 50–91; PULSE 83–98; RESP 15–18; TEMP 36.7–37.2; O2SAT 93–98
[2024-06-09] MEDS: meropenem 1,000 mg SDV 2000 MG IVP ×2 (01:39→09:22)
[2024-06-09] MEDS: sodium chloride 0.9% 1,000 ML 75 ML IV ×2 (01:39→13:10)
[2024-06-09] MEDS: morphine 4 mg/mL SDV 1 mL 2 MG IVP ×2 (01:40→16:18)
[2024-06-09 06:14] LABS: Basophils % 0.1 %; Eosinophils # 0.3 10^3/uL (0.0-0.8); Lymphocytes # 1.4 10^3/uL (0.8-4.8); Lymphocytes % 9.4 %; Mean Corpuscular HGB Conc 33.6 g/dL (30-55); Mean Corpuscular Hemoglobin 31.9 pg (27-33); Mean Corpuscular Volume 94.9 fl (82-101); Mean Platelet Volume 9.7 fL (7.4-10.4); Monocytes # 1.2 10^3/uL (0.2-0.9); Monocytes % 7.7 %; Neutrophils # 12.17 10^3/uL (1.8-7.7); Neutrophils % 79.9 %; Nucleated Red Blood Cells % 0 %; Platelet Count 374 10^3/cmm (157-399); Red Blood Count 2.95 10^6/uL (3.85-5.65); Red Cell Distribution Width 12.9 % (12.1-15.1); White Blood Count 15.25 10^3/uL (3.29-11.43)
[2024-06-09 06:30] LABS: Anion Gap 14.7 (5-19); Blood Urea Nitrogen 6 mg/dL (6-20); Calcium 8.2 mg/dL (8.5-10.5); Carbon Dioxide 27 mmol/L (22-29); Chloride 103 mmol/L (98-107); Creatinine Clr Calc Pharmacy 280.1708; Glomerular Filtration Rate 238.3 mL/min (90-130); Glucose 120 mg/dL (65-115); Magnesium 2.4 mg/dL (1.7-2.3); Osmolality Calculated 291 mOsm/kg (285-295); Potassium 3.7 mmol/L (3.5-5.1); Sodium 141 mmol/L (136-145)
[2024-06-09] MEDS: oxyCODONE 5 mg IR Tab/Cap PO ×2 (08:15→13:14)
[2024-06-09] MEDS: lidocaine 5% Patch 1 PATCH TOPICAL (08:15)
[2024-06-09] MEDS: pantoprazole 40 mg SDV IVP (08:15)
[2024-06-09] MEDS: lisinopril 5 mg Tablet PO (08:16)
[2024-06-09] MEDS: amlodipine 10 mg Tablet PO (08:16)
--- NOTE | 2024-06-09 08:16 | P.PN_ITS ---
Subjective 2 Subjective: Patient doing better this morning, tolerating diet, ostomy productive of gas and stool. His abdominal pain has improved since yesterday. He was able to ambulate yesterday afternoon. Vitals/I&O/Wt Last Vital Signs Temp 98.1 F 06/09/24 08:00 Pulse 88 06/09/24 08:00 Resp 18 06/09/24 08:15 BP 135/91 06/09/24 08:00 Pulse Ox 97 06/09/24 08:00 O2 Del Method Room Air 06/09/24 08:00 O2 Flow Rate 1 06/06/24 14:00 06/08/24 06/09/24 06/09/24 22:59 06:59 14:59 Intake Total 1080 / 2680 1480 / 4160 120 / 120 Output Total 1050 / 3050 1200 / 4250 900 / 900 Balance 30 / -370 280 / -90 -780 / -780 Weight last 48 hrs Weight 180 lb 14.4 oz Weight 180 lb 8 oz Physical Exam 2 GI: OTHER: Abdominal examination is benign, abdomen is mildly distended, there is positive bowel sounds, ostomy bag is full of gas and liquid stool at the moment. There is appropriate tenderness to palpation, midline incision is healing well no evidence of purulence packing was replaced. Urinary Catheter Management: Wilkins: Cath Placed During This Visit: yes Reason for Continuing Indwelling Catheter: Accurate Measurement of Urinary Output in Critically Ill Patients Urinary Catheter Date of Insertion: 06/01/24 Urinary Catheter Time of Insertion: 11:35 Data 06/09/24 05:26 06/09/24 05:26 A&P Assessment and plan (1) Diverticulitis of intestine with perforation and abscess: (2) Sepsis: Plan Overall patient is showing good clinical progression, his white count has been stable at 15 over the last 48 hours, he has been afebrile, tachycardia has resolved, tolerating diet. The plan is to advance to full liquid and then to GI soft as tolerated. I have encouraged patient to ambulate I think he requires ambulate much more than he is currently doing and this will probably help with his recovery. Overall patient is doing good and he will be ready to transition to acute care facility once accepted. Attestations 2 Medical Necessity Statement*: Patient will require 24 to 40 hours of hospital stay for continued management of perforated diverticulitis with abscess, and postoperative management after sigmoid colectomy with end colostomy. Plan is to transition to acute care facility for continued antibiotic management and wound care. Coding Level of Care Code Acute Code for g Fwd Diagnoses Diverticulitis of intestine with perforation and abscess K57.80 Sepsis A41.9
--- NOTE | 2024-06-09 12:15 | PM.TDS ---
Transfer Summary Providers Date of Admission: 06/01/24 10:20 Date of Discharge/Transfer: 06/09/24 Attending Provider at Admission: Lisha Vinson MD Attending Provider at Transfer: Nitza Rivas MD Primary Care Provider: Destiny Young MD Transfer Plans: Anticipated date of transfer: 06/09/24. Diagnoses at Discharge Discharge Diagnosis (1) Diverticulitis of intestine with perforation and abscess: Status: Acute (2) Sepsis: Status: Acute Reason for Visit Reason for Visit abd pain, pressure and pain, pump not working Hospital Course Hospital Course Vickey Kirkland is a 38 year old male with no significant past medical history who presents to the ER with worsening abdominal pain, poor po intake. He was recently discharged from the hospital after conservative management of a perforated sigmoid diverticulitis with abscess, patient received a drain at the end of last week and was discharged over the weekend.CT c/w 1. Increased pneumoperitoneum. 2. Persistent sigmoid diverticulitis. 3. Stable pelvic drain position. 4. Interval increase in size of pelvic abscess, consider drain malfunction. Elevated WBC, lactate, ESR and CRP likely secondary to severe sepsis. #Sepsis- secondary to perforated sigmoid diverticulitis. S/P Exploratory laparotomy, drainage of intra-abdominal abscess, sigmoid colectomy with end colostomy,19 [place] drain in the pelvis He is slightly hypertensive likely secondary to pain, but hemodynamically stable ID consult for further management. 05/27 FLUID COLLECTED FROM SIGMOID ABSCESS --Serratia plymuthi Antibiotics changed to IV meropenem 1g q8h Continue iV fluids for now. Pain control with IV dilaudid 0.5mg q2h prn. Will add fentanyl patch 25mcg q72h. DVT PPX with SCD GI PPX with iv pepcid 20mg bid He is full code for now. 06/02/24 Still in severe abdominal pain requiring IV Dilaudid 1 mg every 2 hours, morphine 2 mg every 4 hours. Vital signs stable. Continue antibiotics as per ID, IV levofloxacin, vancomycin and meropenem. Follow-up new TIKA drain culture Abdominal incisional packing was soaked 2/3rd in its length, was repacked. 06/03/24 He is postop day 2 status post exploratory laparotomy and sigmoid colectomy with end colostomy for perforated diverticulitis with a walled off abscess Vital signs stable but has been on the hypertensive side. Will start home medication p.o. amlodipine 10 mg daily WBC count 36 still, likely secondary to stress and complicated abdominal surgery. Will continue current antibiotics and follow-up ID for further recommendations.. As per surgery, abdominal incision looks healing and no significant bleeding noted. 06/04/24 He is postop day 3. WBC count still elevated at 32, he has been tachycardic and hypertensive likely secondary to pain which improves with IV Ativan as needed for anxiety. Antibiotics changed from vancomycin to Zyvox as per ID, meropenem increased to 2 g every 8 hours and continue levofloxacin. Blood cultures negative so far. Surgery concerned about elevated bilirubin of 1.7. Will check CMP in a.m. As per ID since he has been on broad-spectrum antibiotics and leukocytosis improving very slowly, question about intra-abdominal pathology/redeveloping abscess for resistance to antibiotics. Hence had a CT abdomen and pelvis with oral and IV contrast which showed 1. Patient is status post sigmoid colectomy with end colostomy in the LEFT lower quadrant since the prior study of 06/01/2024. The percutaneous drainage catheter is been removed. 2. Pelvic abscess is no longer present but there is soft tissue stranding within the mesentery and omentum of the abdomen and pelvis. This may be edema but infection is not excluded. 3. There are a few scattered pockets of fluid and free air. There is no abscess. The amount of free air has improved since 06/01/2024. 4. Continued small bowel obstruction or ileus. 5. Surgical drain enters the RIGHT abdominal wall with the tip terminating towards the descending colon. 6. Nasogastric tube present in a distended stomach. No new probable abscess as per radiology. But has pockets of fluid which could be likely reactive secondary to surgery. Will continue to monitor and IV antibiotics. Blood pressure medications adjusted, amlodipine increased to 10 mg daily and added lisinopril 5 mg daily Will continue IV Ativan 0.5 mg every 6 hours as needed Continue pain management NG tube draining brownish fluid which was Hemoccult positive. Likely due to insertional injury. Will continue to monitor CBC. Will follow-up surgery in a.m. for starting clear liquid diet 06/05/24 He is postop day 4. WBC count slowly trending down to 31. He still has been hypertensive and tachycardic, getting better with IV metoprolol 5 mg as needed. Antibiotics changed back to vancomycin, levofloxacin and meropenem as per ID. Blood cultures negative so far. He has been feeling better and clinically doing better, had a large stool amount in colostomy bag. Minimal drainage in TIKA drain. Abdominal examination improved. Will continue current management. 06/06/24 He is postop day 5. WBC count trending down to 15.6. Hypertension and tachycardia improved. He is doing much better clinically, pain controlled on IV Tylenol. He still has belching but no vomiting, as per surgery will hold off on opioids in view of developing ileus. Has large stool amount in colostomy bag, greenish in color, will recheck for C. difficile. TIKA drain discontinued yesterday afternoon. Abdominal exam improved. As per ID recommendations, will continue IV vancomycin and meropenem. IV levofloxacin discontinued. Discussed with surgery about repeat CT after at least 1 week of IV antibiotics to follow-up on fluid/pus pockets on CT from 06/04. Will need a PICC line for long-term IV antibiotics and ID follow-up as an outpatient. Blood cultures have been negative to date 06/08/2024 -Patient is postop day 7. WBC count 15. Vitals are stable today ? Ostomy having good amount of output. Continue clear liquid diet. General surgery planning to advance later today. ? General Surgery following patient. If white count elevates further may consider reimaging however there is no need at this time. Clinically patient is improving. Discussed with general surgery in detail. ? Patient will need PICC line for long-term IV antibiotics and ID follow-up as an outpatient. Blood cultures negative to date. ? Patient has been referred to LTAC facility. ? Will slowly advance diet as tolerated. ?Continue daptomycin and meropenem -Patient encouraged to ambulate. 06/09/2024 post-op day 7. wbc count 15, vitals stable today gen surg following If white count elevates further may consider reimaging however there is no need at this time. Clinically patient is improving. Discussed with general surgery in detail. Patient will need PICC line for long-term IV antibiotics and ID follow-up as an outpatient. Blood cultures negative to date. ? Will slowly advance diet as tolerated. ?Continue daptomycin and meropenem -Patient encouraged to ambulate. - plan to sent to LTAC today. FINAL ID recommendations: 06/07/2024 Continue meropenem 2 g IV every 8 hours d/c vancomycin as trough continues to be suboptimal on increasing doses. Additionally anticipate patient will discharge on at least another 2 to 4 weeks of IV antibiotics depending on clinical progress. Will change to daptomycin 8 mg/g IV every 24 hours for outpatient use given once daily administration, inability to be able to monitor troughs closely enough on every 8 hours dosing. Will change iv vancomycin to daptomycin now to replicate anticipated outpatient regimen Check baseline CPK At discharge will plan to narrrow meropenem to imipenem 1g iv daily GENERAL SURGERY RECOMMENDATIONS; 06/09/2024 Overall patient is showing good clinical progression, his white count has been stable at 15 over the last 48 hours, he has been afebrile, tachycardia has resolved, tolerating diet. The plan is to advance to full liquid and then to GI soft as tolerated. I have encouraged patient to ambulate I think he requires ambulate much more than he is currently doing and this will probably help with his recovery. Overall patient is doing good and he will be ready to transition to acute care facility once accepted. Physical Exam Narrative: General: No acute distress, AO x3 HEENT: PERRLA, pupils bilaterally equal and reactive, pallors not present Chest: Normal vesicular breath sounds, no added sounds, equal good air entry bilaterally CVS: S1-S2 regular, no murmurs, no tachycardia, no gallops, no rubs Abdomen: Soft, non distended, colostomy with stool and gas. Abdominal wound with surgical dressing in place, minimally tender. Bowel sounds present and active. Neuro: No focal deficits, no facial deformity, AO x3, Urinary Catheter Management: Wilkins: Cath Placed During This Visit: yes Reason for Continuing Indwelling Catheter: Accurate Measurement of Urinary Output in Critically Ill Patients Urinary Catheter Date of Insertion: 06/01/24 Urinary Catheter Time of Insertion: 11:35 TS Data Studies Completed and Pending Pending at discharge Category Date Time Status Blood Culture Stat Lab 06/05/24 08:02 Results Completed Studies During Hospitalization Category Date Time Status CT abdomen pelvis w con* [id number] Stat Cat Scan 06/01/24 08:[address] abdomen pelvis wo/w [id number] Stat Cat Scan 06/04/24 09:39 Completed Pathology: Surgical [PTH] Routine Pth 06/01/24 14:54 Completed CV. echo complete* [id number] Stat Ultrasound 06/05/24 07:26 Completed Laboratory Last Values WBC 15.25 10^3/uL (3.29-11.43) H 06/09/24 05:26 RBC 2.95 10^6/uL (3.85-5.65) L 06/09/24 05:26 Hgb 9.40 g/dL (11.27-16.99) L 06/09/24 05:26 Hct 28.0 % (37-53) L 06/09/24 05:26 MCV 94.9 fl (82-101) 06/09/24 05:26 MCH 31.9 pg (27-33) 06/09/24 05:26 MCHC 33.6 g/dL (30-55) 06/09/24 05:26 RDW 12.9 % (12.1-15.1) 06/09/24 05:26 Plt Count 374 10^3/cmm (157-399) 06/09/24 05:26 MPV 9.7 fL (7.4-10.4) 06/09/24 05:26 Neut % (Auto) 79.9 % 06/09/24 05:26 Lymph % (Auto) 9.4 % 06/09/24 05:26 [place] % (Auto) 7.7 % 06/09/24 05:26 Eos % (Auto) 2.0 % 06/09/24 05:26 Baso % (Auto) 0.1 % 06/09/24 05:26 Neut # (Auto) 12.17 10^3/uL (1.8-7.7) H 06/09/24 05:26 Lymph # (Auto) 1.4 10^3/uL (0.8-4.8) 06/09/24 05:26 [place] # (Auto) 1.2 10^3/uL (0.2-0.9) H 06/09/24 05:26 Eos # (Auto) 0.3 10^3/uL (0.0-0.8) 06/09/24 05:26 Baso # (Auto) 0.0 10^3/uL (0.0-0.1) 06/09/24 05:26 Nucleated RBC % (auto) 0 % 06/09/24 05:26 Nucleated RBCs # 0.0 /100WBC 06/09/24 05:26 ESR 30 mm/hr (0-10) H 06/01/24 08:15 Sodium 141 mmol/L (136-145) 06/09/24 05:26 Potassium 3.7 mmol/L (3.5-5.1) 06/09/24 05:26 Chloride 103 mmol/L (98-107) 06/09/24 05:26 Carbon Dioxide 27 mmol/L (22-29) 06/09/24 05:26 Anion Gap 14.7 (5-19) 06/09/24 05:26 BUN 6 mg/dL (6-20) 06/09/24 05:26 Creatinine 0.4 mg/dL (0.7-1.2) L 06/09/24 05:26 GFR Calculation 238.3 mL/min (90-130) H 06/09/24 05:26 Glucose 120 mg/dL (65-115) H 06/09/24 05:26 Calculated Osmolality 291 mOsm/kg (285-295) 06/09/24 05:26 Lactic Acid 0.8 mmol/L (0.5-2.2) 06/02/24 04:27 Calcium 8.2 mg/dL (8.5-10.5) L 06/09/24 05:26 Magnesium 2.4 mg/dL (1.7-2.3) H 06/09/24 05:26 Total Bilirubin 0.8 mg/dL (0.15-1.2) 06/08/24 05:16 AST 17 U/L (0-40) 06/08/24 05:16 ALT 17 U/L (0-41) 06/08/24 05:16 Alkaline Phosphatase 57 U/L (40-130) 06/08/24 05:16 Creatine Kinase 45 U/L (39-308) 06/07/24 04:53 C-Reactive Protein 66.7 mg/L (0.0-4.9) H 06/01/24 08:15 Total Protein 5.0 g/dL (6.6-8.7) L 06/08/24 05:16 Albumin 2.6 g/dL (3.5-5.2) L 06/08/24 05:16 Globulin 2.4 g/dL (1.3-4.6) 06/08/24 05:16 Procalcitonin 0.14 ng/mL (0-0.5) 06/05/24 08:00 Gastric Occult Blood Positive (Negative) H 06/04/24 09:55 Vancomycin Trough 10.0 ug/mL (10-15) 06/06/24 16:35 C. difficile (PCR) Negative (Negative) 06/06/24 10:39 Blood Type O Positive 06/01/24 10:54 Rho(D) Type Rh positive 06/01/24 10:54 Antibody Screen Negative 06/01/24 10:54 Radiology Impressions Abdomen/Pelvis CT 06/04/24 09:39 IMPRESSION: 1. Patient is status post sigmoid colectomy with end colostomy in the LEFT lower quadrant since the prior study of 06/01/2024. The percutaneous drainage catheter is been removed. 2. Pelvic abscess is no longer present but there is soft tissue stranding within the mesentery and omentum of the abdomen and pelvis. This may be edema but infection is not excluded. 3. There are a few scattered pockets of fluid and free air. There is no abscess. The amount of free air has improved since 06/01/2024. 4. Continued small bowel obstruction or ileus. 5. Surgical drain enters the RIGHT abdominal wall with the tip terminating towards the descending colon. 6. Nasogastric tube present in a distended stomach. Notified Lisha Vinson MD at 06/04/2024 1:[address] Keating. Recent Clincial Data Last Vital Signs Temp 99.0 F 06/09/24 11:33 Pulse 98 06/09/24 11:33 Resp 17 06/09/24 11:33 BP 153/70 06/09/24 11:33 Pulse Ox 98 06/09/24 11:33 O2 Del Method Room Air 06/09/24 11:33 O2 Flow Rate 1 06/06/24 14:00 Vital Signs Temp Pulse Resp BP Pulse Ox O2 Del Method 06/09/24 11:33 99.0 F 98 17 153/70 98 Room Air 06/09/24 08:15 18 06/09/24 08:00 98.1 F 88 18 135/91 97 Room Air 06/09/24 06:00 84 06/09/24 04:00 98.0 F 89 15 122/80 93 Room Air 06/09/24 01:40 15 96 Intake & Output/Weight 06/07/24 06/08/24 06/09/24 06/10/24 06:59 06:59 06:59 06:59 Intake Total 3165 / 3165 3240 / 3240 4160 / 4160 240 / 240 Output Total 4050 / 4050 3035 / 3035 4250 / 4250 900 / 900 Balance -885 / -885 205 / 205 -90 / -90 -660 / -660 Weight 81.556 kg 81.873 kg 82.055 kg Vitals Last Vital Signs Temp 99.0 F 06/09/24 11:33 Pulse 98 06/09/24 11:33 Resp 17 06/09/24 11:33 BP 153/70 06/09/24 11:33 Pulse Ox 98 06/09/24 11:33 O2 Del Method Room Air 06/09/24 11:33 O2 Flow Rate 1 06/06/24 14:00 TS Medications Medications Amlodipine Besylate (Amlodipine 10 Mg Tablet) 10 mg PO DAILY [facility] Last Admin: 06/09/24 08:16 Dose: 10 mg Fentanyl (Fentanyl 25 Mcg Patch) 1 patch TRANSDERMA Q72H [facility] Last Admin: 06/08/24 15:09 Dose: 1 patch Sodium Chloride (Sodium Chloride 0.9%) 1,000 mls @ 75 mls/hr IV .[id number] [facility] Last Admin: 06/09/24 01:39 Dose: 75 mls/hr Daptomycin 680 mg/ Sodium (Chloride) 100 mls @ 100 mls/hr IV Q24H [facility] Last Infusion: 06/08/24 18:19 Dose: Infused Lanolin (Lanolin Oint 7 Gm) 1 applic TOPICAL PRN PRN PRN Reason: DRYNESS Lidocaine (Lidocaine 5% Patch) 1 patch TOPICAL DAILY [facility] Last Admin: 06/09/24 08:15 Dose: 1 patch Lisinopril (Lisinopril 5 Mg Tablet) 5 mg PO DAILY [facility] Last Admin: 06/09/24 08:16 Dose: 5 mg Lorazepam (Lorazepam 2 Mg/Ml Inj 1 Ml) 0.5 mg IVP Q8H PRN PRN Reason: ANXIETY Last Admin: 06/08/24 09:21 Dose: 0.5 mg Meropenem (Meropenem 1,000 Mg Sdv) 2,000 mg IVP Q8H [facility] Last Admin: 06/09/24 09:22 Dose: 2,000 mg Metoclopramide HCl (Metoclopramide 5 Mg/Ml Sdv 2 Ml) 5 mg IVP Q6H PRN PRN Reason: NAUSEA AND VOMITING Last Admin: 06/05/24 19:41 Dose: 5 mg Morphine Sulfate (Morphine 4 Mg/Ml Sdv 1 Ml) 2 mg IVP Q4H PRN PRN Reason: SEVERE PAIN Last Admin: 06/09/24 01:40 Dose: 2 mg Naloxone HCl (Naloxone 0.4 Mg/Ml Sdv) 0.4 mg IVP PRN PRN PRN Reason: RESPIRATORY RATE < 8/MIN Ondansetron HCl (Ondansetron 2 Mg/Ml Sdv 2 Ml) 4 mg IVP Q6H PRN PRN Reason: NAUSEA AND VOMITING Last Admin: 06/07/24 12:51 Dose: 4 mg Oxycodone HCl (Oxycodone 5 Mg Ir Tab/Cap) 5 mg PO Q4H PRN PRN Reason: MODERATE PAIN Last Admin: 06/09/24 08:15 Dose: 5 mg Pantoprazole Sodium (Pantoprazole 40 Mg Sdv) 40 mg IVP BID [facility] Last Admin: 06/09/24 08:15 Dose: 40 mg Phenol (Phenol Oral [place] 177 Ml) 3 spray MUCOUS MEM Q2H PRN PRN Reason: SORE THROAT Last Admin: 06/03/24 08:42 Dose: 3 spray Scopolamine (Scopolamine 1.5 Patch) 1 patch TRANSDERMA Q3D [facility] Last Admin: 06/08/24 01:23 Dose: 1 patch Discontinued Medications Albuterol Sulfate (Albuterol 2.5 Mg/3 Ml Neb) 2.5 mg INHALATION ONCE PRN PRN Reason: WHEEZING Dexamethasone (Dexamethasone 4 Mg/Ml Inj) Confirm Administered Dose 8 mg .ROUTE .STK-MED ONE Stop: 06/01/24 10:24 Famotidine (Famotidine 20 Mg/2 Ml Inj) 20 mg IVP ONCE PRN PRN Reason: HEARTBURN Famotidine (Famotidine 20 Mg/2 Ml Inj) 20 mg IVP Q12H [facility] Last Admin: 06/02/24 15:20 Dose: 20 mg Fentanyl (Fentanyl 50 Mcg/Ml Inj 2ml) Confirm Administered Dose 100 mcg .ROUTE .STK-MED ONE Stop: 06/01/24 10:39 Fentanyl (Fentanyl 50 Mcg/Ml Inj 2ml) 100 mcg IVP ONCE PRN PRN Reason: Per anesthesia for block Fentanyl (Fentanyl 50 Mcg/Ml Inj 2ml) 50 mcg IVP Q10M PRN PRN Reason: Preop Pain Fentanyl (Fentanyl 25 Mcg Patch) 1 patch TRANSDERMA Q72H [facility] Last Admin: 06/01/24 17:30 Dose: 1 patch Fentanyl (Fentanyl 50 Mcg/Ml Inj 2ml) 25 mcg IVP Q4H PRN PRN Reason: SEVERE PAIN Last Admin: 06/02/24 05:53 Dose: 25 mcg Fentanyl (Fentanyl 25 Mcg Patch) 1 patch TRANSDERMA Q72H [facility] Last Admin: 06/02/24 10:06 Dose: Not Given Fentanyl (Fentanyl 50 Mcg/Ml Inj 2ml) 25 mcg IVP ONCE PRN PRN Reason: SEVERE PAIN Last Admin: 06/03/24 06:01 Dose: 25 mcg Fentanyl (Fentanyl 50 Mcg/Ml Inj 2ml) 25 mcg IVP Q2H PRN PRN Reason: SEVERE PAIN Last Admin: 06/05/24 07:22 Dose: 25 mcg Hydromorphone HCl (Hydromorphone 1 Mg/Ml Inj 1 Ml) 1 mg IVP ONCE ONE Stop: 06/01/24 08:20 Last Admin: 06/01/24 08:37 Dose: 1 mg Hydromorphone HCl (Hydromorphone 1 Mg/Ml Inj 1 Ml) 1 mg IVP ONCE ONE Stop: 06/01/24 10:05 Last Admin: 06/01/24 10:18 Dose: 1 mg Hydromorphone HCl (Hydromorphone 1 Mg/Ml Inj 1 Ml) Confirm Administered Dose 1 mg .ROUTE .STK-MED ONE Stop: 06/01/24 12:25 Hydromorphone HCl (Hydromorphone 1 Mg/Ml Inj 1 Ml) Confirm Administered Dose 1 mg .ROUTE .STK-MED ONE Stop: 06/01/24 14:22 Hydromorphone HCl (Hydromorphone 1 Mg/Ml Inj 1 Ml) 0.5 mg IVP Q4H PRN PRN Reason: BREAKTHROUGH PAIN Last Admin: 06/01/24 15:31 Dose: 0.5 mg Hydromorphone HCl (Hydromorphone 1 Mg/Ml Inj 1 Ml) 0.5 mg IVP Q2H PRN PRN Reason: BREAKTHROUGH PAIN Last Admin: 06/01/24 19:33 Dose: 0.5 mg Hydromorphone HCl (Hydromorphone 1 Mg/Ml Inj 1 Ml) 1 mg IVP Q4H PRN PRN Reason: PAIN Last Admin: 06/02/24 08:08 Dose: 1 mg Hydromorphone HCl (Hydromorphone 1 Mg/Ml Inj 1 Ml) 0.5 mg IVP Q2H PRN PRN Reason: PAIN Hydromorphone HCl (Hydromorphone 1 Mg/Ml Inj 1 Ml) 1 mg IVP Q2H [facility] Last Admin: 06/03/24 14:52 Dose: 1 mg Vancomycin HCl 1,000 mg/ (Sodium Chloride) 250 mls @ 250 mls/hr IV ONCE ONE; Protocol Stop: 06/01/24 10:17 Last Infusion: 06/01/24 10:49 Dose: Infused Piperacillin Sod/Tazobactam (Sod 3.375 gm/ Sodium Chloride) 50 mls @ 100 mls/hr IV ONCE ONE; Protocol Stop: 06/01/24 09:47 Last Infusion: 06/01/24 09:53 Dose: Infused Sodium Chloride (Sodium Chloride 0.9%) 1,000 mls @ 999 mls/hr IV .Q1H1M [facility] Stop: 06/01/24 11:45 Last Infusion: 06/01/24 18:11 Dose: Infused Sodium Chloride (Sodium Chloride 0.9%) 500 mls @ 999 mls/hr IV .Q31M ONE Stop: 06/01/24 10:05 Last Infusion: 06/01/24 17:39 Dose: Infused Sodium Chloride (Sodium Chloride 0.9%) 1,000 mls @ 30 mls/hr IV .Q24H [facility] Stop: 06/02/24 10:44 Last Admin: 06/01/24 17:40 Dose: Not Given Acetaminophen (Acetaminophen) Confirm Administered Dose 1,000 mg in 100 mls @ as directed .ROUTE .STK-MED ONE Stop: 06/01/24 11:47 Acetaminophen (Acetaminophen) 1,000 mg in 100 mls @ 400 mls/hr IV Q8H [facility] Stop: 06/02/24 07:14 Last Admin: 06/01/24 17:38 Dose: Not Given Piperacillin Sod/Tazobactam (Sod 3.375 gm/ Sodium Chloride) 50 mls @ 12.5 mls/hr IV Q8H [facility]; Protocol Last Infusion: 06/01/24 20:40 Dose: Infused Vancomycin HCl 1,000 mg/ (Sodium Chloride) 250 mls @ 250 mls/hr IV ONCE ONE Stop: 06/01/24 15:59 Last Infusion: 06/01/24 17:39 Dose: Infused Vancomycin HCl 1,000 mg/ (Sodium Chloride) 250 mls @ 250 mls/hr IV Q8H [facility] Meropenem 1,000 mg/ Sodium (Chloride) 50 mls @ 100 mls/hr IV Q8H [facility]; Protocol Vancomycin HCl 1,000 mg/ (Sodium Chloride) 250 mls @ 250 mls/hr IV Q8H [facility] Last Infusion: 06/03/24 14:25 Dose: Infused Acetaminophen (Acetaminophen) 1,000 mg in 100 mls @ 400 mls/hr IV Q8H [facility] Stop: 06/02/24 23:44 Last Infusion: 06/02/24 23:15 Dose: Infused Levofloxacin/Dextrose (Levaquin-D5w) 750 mg in 150 mls @ 100 mls/hr IV Q24H [facility]; Protocol Last Infusion: 06/05/24 09:26 Dose: Infused Albumin Human (Albumin) 12.5 gm in 250 mls @ 300 mls/hr IV ONCE ONE Stop: 06/03/24 08:53 Last Infusion: 06/03/24 10:58 Dose: Infused Lidocaine HCl 5 ml/ Potassium (Chloride) 105 mls @ 26.25 mls/hr IV ONCE ONE Stop: 06/03/24 12:06 Last Infusion: 06/03/24 13:47 Dose: Infused Magnesium Sulfate/Dextrose (Magnesium Sulfate Premix) 1 gm in 100 mls @ 200 mls/hr IV ONCE ONE Stop: 06/03/24 08:36 Last Infusion: 06/03/24 09:38 Dose: Infused Sterile Water (Water) Confirm Administered Dose 10 mls @ as directed .ROUTE .STK-MED ONE Stop: 06/03/24 10:08 Last Infusion: 06/03/24 10:58 Dose: Infused Vancomycin HCl (Vancocin) 1,500 mg in 300 mls @ 200 mls/hr IV Q8H [facility] Last Infusion: 06/03/24 22:10 Dose: Infused Sterile Water (Water) Confirm Administered Dose 10 mls @ as directed .ROUTE .STK-MED ONE Stop: 06/03/24 17:42 Last Infusion: 06/03/24 18:15 Dose: Infused Linezolid (Zyvox Premix) 600 mg in 300 mls @ 300 mls/hr IV Q12H [facility]; Protocol Linezolid (Zyvox Premix) 600 mg in 300 mls @ 300 mls/hr IV Q12H [facility]; Protocol Last Infusion: 06/04/24 18:52 Dose: Infused Acetaminophen (Acetaminophen) 1,000 mg in 100 mls @ 400 mls/hr IV ONCE ONE Stop: 06/03/24 23:56 Last Infusion: 06/04/24 00:44 Dose: Infused Acetaminophen (Acetaminophen) 1,000 mg in 100 mls @ 400 mls/hr IV ONCE ONE Stop: 06/05/24 01:11 Last Infusion: 06/05/24 01:25 Dose: Infused Vancomycin HCl (Vancocin) 1,500 mg in 300 mls @ 200 mls/hr IV Q8H [facility] Last Infusion: 06/05/24 11:30 Dose: Infused Vancomycin HCl 1,000 mg/ (Sodium Chloride) 250 mls @ 250 mls/hr IV ONCE ONE Stop: 06/05/24 09:59 Last Infusion: 06/05/24 11:30 Dose: Infused Vancomycin HCl (Vancocin) 1,500 mg in 300 mls @ 200 mls/hr IV Q8H [facility] Last Infusion: 06/06/24 10:06 Dose: Infused Acetaminophen (Acetaminophen) 1,000 mg in 100 mls @ 400 mls/hr IV ONCE ONE Stop: 06/05/24 14:28 Last Infusion: 06/05/24 15:32 Dose: Infused Acetaminophen (Acetaminophen) 1,000 mg in 100 mls @ 400 mls/hr IV Q8H [facility] Stop: 06/07/24 17:14 Acetaminophen (Acetaminophen) 1,000 mg in 100 mls @ 400 mls/hr IV Q8H [facility] Stop: 06/07/24 22:59 Last Infusion: 06/08/24 00:34 Dose: Infused Albumin Human (Albumin) 12.5 gm in 250 mls @ 300 mls/hr IV ONCE ONE Stop: 06/06/24 09:19 Last Infusion: 06/06/24 11:11 Dose: Infused Lidocaine HCl 5 ml/ Potassium (Chloride) 105 mls @ 26.25 mls/hr IV ONCE ONE Stop: 06/06/24 12:20 Last Infusion: 06/06/24 13:19 Dose: Infused Vancomycin HCl (Vancocin) 2,000 mg in 400 mls @ 200 mls/hr IV Q8H [facility] Last Infusion: 06/07/24 12:29 Dose: Infused Daptomycin 680 mg/ Sodium (Chloride) 100 mls @ 100 mls/hr IV Q24H [facility] Sodium Chloride (Sodium Chloride 0.9%) 500 mls @ 999 mls/hr IV .Q31M [facility] Stop: 06/07/24 15:30 Last Infusion: 06/08/24 00:34 Dose: Infused Iohexol (Iohexol 350 Mg/Ml 500 Ml Btl (Per Ml)) 0 ml IV ONCE ONE Stop: 06/01/24 08:59 Last Admin: 06/01/24 08:59 Dose: 100 ml Iohexol (Iohexol 350 Mg/Ml 500 Ml Btl (Per Ml)) 0 ml IV ONCE ONE Stop: 06/04/24 12:46 Last Admin: 06/04/24 12:51 Dose: 75 ml Iohexol (Iohexol 350 Mg/Ml 500 Ml Btl (Per Ml)) 0 ml PO ONCE ONE Stop: 06/04/24 12:52 Last Admin: 06/04/24 12:51 Dose: 25 ml Ipratropium [place] (Ipratropium 0.5 Mg/2.5 Ml Neb) 0.5 mg INHALATION ONCE PRN PRN Reason: WHEEZING Ketamine HCl (Ketamine 50 Mg/Ml Syr 1 Ml) Confirm Administered Dose 50 mg .ROUTE .STK-MED ONE Stop: 06/01/24 11:47 Ketorolac Tromethamine (Ketorolac 30 Mg/Ml Inj) Confirm Administered Dose 30 mg .ROUTE .STK-MED ONE Stop: 06/01/24 14:22 Ketorolac Tromethamine (Ketorolac 30 Mg/Ml Inj) 30 mg IVP ONCE ONE Stop: 06/01/24 16:21 Last Admin: 06/01/24 16:30 Dose: 30 mg Ketorolac Tromethamine (Ketorolac 30 Mg/Ml Inj) 15 mg IVP ONCE ONE Stop: 06/03/24 00:09 Last Admin: 06/03/24 00:25 Dose: 15 mg Ketorolac Tromethamine (Ketorolac 30 Mg/Ml Inj) 15 mg IVP Q6H [facility] Stop: 06/08/24 09:29 Last Admin: 06/04/24 14:50 Dose: 15 mg Lidocaine (Lidocaine 5% Patch) 1 patch TOPICAL ONCE ONE Stop: 06/05/24 02:03 Last Admin: 06/05/24 04:05 Dose: 1 patch Lidocaine (Lidocaine 5% Patch) 1 patch TOPICAL [id number] [facility] Last Admin: 06/08/24 10:06 Dose: Not Given Lidocaine HCl (Lidocaine 1% 10 Ml Inj) 0.1 ml INTRADERMA PRN PRN PRN Reason: anesthetic prior to IV start Lorazepam (Lorazepam 2 Mg/Ml Inj 1 Ml) 0.5 mg IM ONCE ONE Stop: 06/03/24 07:49 Last Admin: 06/03/24 07:52 Dose: Not Given Lorazepam (Lorazepam 2 Mg/Ml Inj 1 Ml) 0.5 mg IVP ONCE ONE Stop: 06/03/24 07:54 Last Admin: 06/03/24 08:01 Dose: 0.5 mg Lorazepam (Lorazepam 2 Mg/Ml Inj 1 Ml) 0.5 mg IVP Q6H PRN PRN Reason: ANXIETY Last Admin: 06/06/24 12:28 Dose: 0.5 mg Meropenem (Meropenem 1,000 Mg Sdv) 1,000 mg IVP Q8H [facility] Last Admin: 06/03/24 17:58 Dose: 1,000 mg Meropenem (Meropenem 1,000 Mg Sdv) 2,000 mg IVP Q8H [facility] Metoclopramide HCl (Metoclopramide 5 Mg/Ml Sdv 2 Ml) 10 mg IVP ONCE PRN PRN Reason: N/V if zofran ineffective Metoprolol Tartrate (Metoprolol Tartrate 1 Mg/1 Ml Sdv 5 Ml) 5 mg IVP ONCE ONE Stop: 06/04/24 17:09 Last Admin: 06/04/24 17:32 Dose: 5 mg Metoprolol Tartrate (Metoprolol Tartrate 1 Mg/1 Ml Sdv 5 Ml) 5 mg IVP ONCE ONE Stop: 06/05/24 08:43 Last Admin: 06/05/24 08:55 Dose: 5 mg Midazolam HCl (Midazolam 1 Mg/Ml Inj 2 Ml) Confirm Administered Dose 2 mg .ROUTE .STK-MED ONE Stop: 06/01/24 10:39 Midazolam HCl (Midazolam 1 Mg/Ml Inj 5 Ml) 5 mg IVP ONCE PRN PRN Reason: Per anesthesia for block Midazolam HCl (Midazolam 1 Mg/Ml Inj 2 Ml) 2 mg IVP Q5M PRN PRN Reason: Preop Anxiety Morphine Sulfate (Morphine 4 Mg/Ml Sdv 1 Ml) 2 mg IVP Q4H PRN PRN Reason: SEVERE PAIN Last Admin: 06/06/24 07:44 Dose: 2 mg Ondansetron HCl (Ondansetron 2 Mg/Ml Sdv 2 Ml) 4 mg IVP ONCE ONE Stop: 06/01/24 08:20 Last Admin: 06/01/24 08:37 Dose: 4 mg Ondansetron HCl (Ondansetron 2 Mg/Ml Sdv 2 Ml) Confirm Administered Dose 4 mg .ROUTE .STK-MED ONE Stop: 06/01/24 10:24 Ondansetron HCl (Ondansetron 2 Mg/Ml Sdv 2 Ml) 4 mg IVP Q5M PRN PRN Reason: NAUSEA AND VOMITING Last Admin: 06/01/24 15:29 Dose: 4 mg Pantoprazole Sodium (Pantoprazole 40 Mg Sdv) 40 mg IVP DAILY VALENTE Last Admin: 06/04/24 08:50 Dose: 40 mg Rocuronium [place] (Rocuronium 10 Mg/Ml Inj 5ml) Confirm Administered Dose 50 mg .ROUTE .STK-MED ONE Stop: 06/01/24 10:24 Scopolamine (Scopolamine 1.5 Patch) 1 patch TRANSDERMA ONCE PRN PRN Reason: Nausea/ Vomiting Prophylaxis Succinylcholine Chloride (Succinylcholine 20 Mg/Ml Sdv 10ml) Confirm Administered Dose 200 mg .ROUTE .STK-MED ONE Stop: 06/01/24 10:24 Sugammadex Sodium (Sugammadex 200 Mg/2 Ml Sdv) Confirm Administered Dose 200 mg .ROUTE .STK-MED ONE Stop: 06/01/24 14:15 Allergies tree nut Allergy (Verified 05/21/24 10:33) Unknown Home Medications amlodipine 10 mg tablet 10 mg PO DAILY 30 days #30 tabs 05/29/24 [Rx Confirmed 06/01/24] clonidine HCl 0.1 mg tablet 0.1 mg PO Q12H 30 days #60 tabs 05/29/24 [Rx Confirmed 06/01/24] dexamethasone 6 mg tablet 6 mg PO Q24H 4 days #4 tabs 05/29/24 [Rx Confirmed 06/01/24] ondansetron HCl 4 mg tablet 4 mg PO Q6H PRN nausea and vomiting 7 days #28 tabs 05/29/24 [Rx Confirmed 06/01/24] oxycodone 5 mg tablet 5 mg PO Q6H PRN pain 7 days #28 tabs 05/29/24 [Rx Confirmed 06/01/24] Discharge Plan Discharge Patient Disposition: Xfer Other Condition: Stable Prescriptions: No Action clonidine HCl 0.1 mg Tablet 0.1 mg PO Q12H 30 Days Qty: 60 0RF amlodipine 10 mg Tablet 10 mg PO DAILY 30 Days Qty: 30 0RF ondansetron HCl 4 mg tablet 4 mg PO Q6H PRN (Reason: nausea and vomiting) 7 Days Qty: 28 0RF oxycodone 5 mg tablet 5 mg PO Q6H PRN (Reason: pain) 7 Days Qty: 28 0RF dexamethasone 6 mg tablet 6 mg PO Q24H 4 Days Qty: 4 0RF Referrals: Destiny Young MD [Primary Care Provider] - Discharge Diet: Full LIquid Patient Instructions: Acute Wound Care (DC), Post Anesthesia Care Transfer Attestations Time Spent in Transfer Care: greater than 30 min Quality Metrics Clinical Quality Measures [ No reported AMI, CVA or VTE this stay] Coding Level of Care Code 19472 Total time (in minutes) for Discharge: 40 Diagnoses Diverticulitis of intestine with perforation and abscess K57.80 Sepsis A41.9
--- NOTE | 2024-06-09 13:23 | XR_ITS ---
WS: [id number] XR chest 1V portable [id number] REASON FOR EXAM: Post PICC insertion FINDINGS: The right arm PICC line has been placed. The tip is in the distal SVC near the cavoatrial junction. P osition satisfactory for use. Position of the PICC line was discussed with the automation technologist at 2:02 p.m. Position was satisfactory and no repositioning required. XR/XR chest 1V portable [id number] IMPRESSION: Right arm PICC line placement as above.
--- NOTE | 2024-06-09 14:26 | PICC.NOTE ---
Single lumen PICC placed to right brachial vein. Referred to vascular access nurse for PICC placement due to need for IV antibiotics x 6 weeks. Risks and benefits discussed and informed consent obtained from pt. Right arm assessed with right brachial vein measuring 5.2 mm, straight, and apparent best choice for placement. Using sterile technique and MST, right brachial vein accessed x 1 stick. Mid-arm circumference measured 10 cm from right AC 27 cm. Trimmed cath 39 cm with 2 cm external length noted. CXR shows tip in cavoatrial junction, in good position for use per radiologist. Line secured with stat-lock. Insertion site covered with Biopatch and TSM. Report given to bedside nurse, HEIDE Lawrence.
--- NOTE | 2024-06-09 14:32 | PICC.NOTE ---
Midline to left upper arm removed following PICC insertion. Pressure held for approx 3 minutes until hemostasis obtained. Site covered with occlusive dressing. No signs of bleeding, swelling, redness, or infection noted. Pt tolerated well.
--- NOTE | 2024-06-09 14:37 | PC.NURSE ---
This nurse calls report to Aden JAEGER at [facility].
[2024-06-09] MEDS: SODIUM CHLORIDE 0.9% IV (14:38)
[2024-06-09] MEDS: DAPTOMYCIN IV (14:38)
--- NOTE | 2024-06-09 16:21 | PC.NURSE ---
Cayetano Isaacs here to transport pt to [facility] in [place]
== END 2024-06-09 16:33 | disposition skilled nursing facility (03) | DRG 854 ==
LOC: ER 10:17 → ICU 10:21 → MEDSURG 06-07 16:56
PROVIDERS: Student in an Organized Health Care Education/Training Program; Surgery; Admitting Provider Internal Medicine; Emergency Provider Emergency Medicine; PCP Family Medicine; Visit Provider Internal Medicine
PROC: 0DBN0ZZ Excision of Sigmoid Colon, Open Approach (ICD-10-PCS; CPT 49000; principal; 2024-06-01 11:00)
PROC: 0DBN0ZZ Excision of Sigmoid Colon, Open Approach (ICD-10-PCS; CPT 44140; 2024-06-01 11:00)
PROC: 0DBN0ZZ Excision of Sigmoid Colon, Open Approach (ICD-10-PCS; CPT 44320; 2024-06-01 11:00)
DX: A41.9 Sepsis, unspecified organism (principal); K56.7 Ileus, unspecified; K57.20 Diverticulitis of large intestine with perforation and abscess without bleeding; Z80.42 Family history of malignant neoplasm of prostate
CPT/HCPCS: 36415; 36573; 51702; 71045; 74177; 74178; 80048; 80053; 80202; 82271; 82550; 83605; 83735; 84145; 85025; 85651; 86140; 86850; 86900; 87040; 87070; 87075; 87205; 87493; 88305; 88309; 93005; 93306; 94664; 96365; 96367; 96375; 96376; 99285; J0131; J0330; J0878; J1100; J1171; J1885; J1956; J2020; J2060; J2185; J2250; J2270; J2405; J2470; J2543; J2765; J3010; J3370; J3372; J3475; J3480; J3490; J7030; J7040; J7050; P9045

== ENCOUNTER → 2024-07-15 11:46 | Outpatient (BNVA) | payer BC, MEDICAID, SELFPAY | DX: K57.20 Diverticulitis of large intestine with perforation and abscess without bleeding (principal) | CPT/HCPCS: 80053; 85025 ==

== ENCOUNTER 2024-07-30 13:55 | Emergency (ER) | payer BC, MEDICAID, SELFPAY ==
[2024-07-30] VITALS (10 sets, daily range): BP systolic 144–167; BP diastolic 97–108; PULSE 76–96; RESP 16–18; TEMP 36.9; O2SAT 96–98; BMI 24.4
--- NOTE | 2024-07-30 15:28 | CTR_ITS ---
PROCEDURE INFORMATION: Exam: CT Abdomen And Pelvis With Contrast Exam date and time: 07/30/2024 5:55 PM Age: 39 years old Clinical indication: Abdominal pain; Acute; Prior surgery; Surgery date: <1 month; Surgery type: Colostomy; Additional info: Abd pain, post ostomy TECHNIQUE: Imaging protocol: Computed tomography of the abdomen and pelvis with contrast. Radiation optimization: All CT scans at this facility use at least one of these dose optimization techniques: automated exposure control; mA and/or kV adjustment per patient size (includes targeted exams where dose is matched to clinical indication); or iterative reconstruction. Contrast material: OMNIPAQUE 350; Contrast volume: 100 ml; Contrast route: INTRAVENOUS (IV); COMPARISON: CT abdomen pelvis wo/w [id number] 06/04/2024 12:43 PM RADIATION DOSE METRICS: Total DLP (mGy-cm): 738.91 FINDINGS: Lungs: There is a tiny 3 mm nodule in the right middle lobe. Visualized lung bases are otherwise clear. Diaphragm: There is a small hiatal hernia. Liver: Unremarkable. Gallbladder and biliary ducts: No radiopaque stones. No significant ductal dilation. Pancreas: Unremarkable. Spleen: Unremarkable. Adrenal glands: Unremarkable. Kidneys and ureters: Tiny bilateral renal calculi. There is a tiny radiopaque density, suspected stone, in the proximal right ureter. There is very slight dilatation of the proximal right ureter without significant hydronephrosis. No significant left-sided hydronephrosis. There is a 2 cm hypodense lesion with lobulated borders in the mid left kidney demonstrating Hounsfield units of approximately 47, stable in appearance. There are other small bilateral simple renal cysts noted. Stomach and bowel: There are postsurgical changes involving the sigmoid colon with surgical bowel sutures noted. There is a colostomy in the left lower abdomen with very mild stranding of the surrounding fat in the ventral abdominal wall.There is no significant bowel dilatation or evidence for obstruction. No significant inflammatory changes are seen. The Appendix: The appendix appears normal without evidence for acute appendicitis. Intraperitoneal space: Previously seen inflammation and free fluid in the lower abdomen and pelvis has resolved. Vasculature: The abdominal aorta is normal in caliber. No abdominal aortic aneurysm. Lymph nodes: Unremarkable. No enlarged lymph nodes. Urinary bladder: Unremarkable as visualized. Reproductive: Unremarkable as visualized. Bones/joints: Intact. No acute fracture. Soft tissues: Unremarkable. Other findings: None. CT/CT abdomen pelvis w con* [id number] IMPRESSION: 1. 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 There is mild stranding of the fat surrounding the colostomy in the ventral abdominal wall, decreased since June 04, 2024. Previously seen inflammation and free fluid in the lower abdomen and pelvis has resolved since June 04, 2024. 2. Bilateral tiny renal calculi with suspected 2 mm proximal right ureteral stone and very mild associated hydroureter. No significant hydronephrosis. 3. Mildly complex 2 cm cystic lesion in the left kidney, not significantly changed since June 01, 2024. Other small simple cysts are noted in the kidneys bilaterally.Benign Bosniak II renal cyst requiring no follow-up. (Reference: Hardy) 4. Tiny 3 mm nodule in the right middle lobe.For patients at low risk (minimal or absent history of smoking and of other known risk factors), no routine follow-up is indicated. For patients at high risk (history of smoking or of other known risk factors), consider optional CT Chest at 12 months. (Reference: Timmy) THIS REPORT CONTAINS FINDINGS THAT MAY BE CRITICAL TO PATIENT CARE. The findings were verbally communicated via telephone conference with HARINDER VALADEZ at 6:40 PM CONTINUOUS PROCESS ROTARY DRUM TANNER on 07/30/2024. The findings were acknowledged and understood. COMMENTS: Consistent with the [place] [employer]'s Incidental Findings Committee white paper (J Am Frida Radiol 2018): Any incidental renal lesion less than 1 cm or classified as too small to characterize, or any incidental cystic renal lesion characterized as simple-appearing, is likely benign. No follow-up imaging is recommended for these lesions per consensus recommendations based on imaging criteria. REFERENCES: 1. Timmy Aden, et al. Guidelines for Management of Incidental Pulmonary Nodules Detected on CT Images: From the Fleischner Society 2017. Radiology. 2017;284(1):228-243. 2. Hardy HUNTER, et al. Bosniak Classification of Cystic Renal Masses, Version 2019: An Update Proposal and Needs Assessment. Radiology. 2019;292(2):475-488.
--- NOTE | 2024-07-30 16:53 | W.ED.ABDPA2 ---
HPI - Abdominal Pain General: Chief Complaint: Abdominal Pain Stated Complaint: abdomial pain Time Seen by Provider: 07/30/24 15:19 History of Present Illness: 39-year-old male presents with abdominal pain in the left lower quadrant near his ostomy site. Patient had ostomy placed here back in May. Patient has been on multiple antibiotics since ostomy was placed. He was recently started on 07/15/2024 with Cipro 500 mg twice daily. He reports that he is still taking this. Patient also complains of an abscess on his right fifth digit that got severely worse over the last 24 hours started draining yesterday then got to be more swollen painful today. Patient reports that the pain near his ostomy site also started today. Associated Symptoms: Reports chills and other (Please see HPI); Denies fever(s) Related Data Home Medications Medication Instructions Recorded Confirmed fluoxetine 20 mg capsule 20 mg PO DAILY 07/15/24 07/30/24 acetaminophen 325 mg tablet 650 mg PO QID PRN Pain 07/30/24 07/30/24 (Tylenol) Previous Rx's Medication Instructions Recorded trazodone 100 mg tablet 200 mg (2 x 100 mg) PO DAILY #60 07/12/24 tabs ciprofloxacin HCl 500 mg tablet 500 mg PO BID 10 days #20 tabs 07/15/24 (Cipro) clonazepam 1 mg tablet (Klonopin) 1 mg PO BID anxiety #60 tabs 07/26/24 hydrocodone 7.5 mg-acetaminophen 1 tab PO Q8H PRN pain 7 days #20 07/26/24 325 mg tablet tabs metoprolol tartrate 50 mg tablet 25 mg (1/2 x 50 mg) PO BID #60 tabs 07/26/24 Allergies Allergy/AdvReac Type Severity Reaction Status Date / Time tree nut Allergy Unknown Verified 07/30/24 14:22 Review of Systems Const: Reports: chills; Denies: fever(s) Card: Denies: chest pain Resp: Denies: dyspnea or productive cough GI: Reports: abdominal pain and other (Please see HPI) : Denies: flank pain or difficulty urinating Skin/Breast: Reports: other (Please see HPI) PFSH ED PFSH: Family History Father Prostate cancer Social History (Reviewed 07/27/24 @ 09:05 by JOVAN Martin Smoking and tobacco/nicotine status: never used tobacco/nicotine Alcohol intake: never Sexually active: No Do you think of yourself as: Straight/Heterosexual Physical Exam Resp: COMMON NORMALS: normal respiratory effort and clear to auscultation bilaterally AUSCULTATION: clear to auscultation bilaterally Cardio: COMMON NORMALS: regular rate and regular rhythm RATE: regular rate RHYTHM: regular rhythm GI: PALPATION: Yes Tenderness to palpation present (GI) and Yes Other GI palpation findings present (Ostomy left lower quadrant with abdominal pain) Extremity: NARRATIVE EXTREMITY EXAM: Significant swelling of the right little finger with concerns for flexor sheath infection with abscess Course Vital Signs: Vital signs: Vital Signs Temperature 98.5 F 07/30/24 14:15 Pulse Rate 89 07/30/24 22:40 Respiratory Rate 16 07/30/24 22:40 Blood Pressure 154/100 07/30/24 22:40 Pulse Oximetry 97 07/30/24 22:40 Oxygen Delivery Me thod Room Air 07/30/24 22:40 MDM - Abdominal Pain Medical Decision Making Patient with failed outpatient therapy for abscess to the right finger on the palmar aspect. There is concern for flexor tendon abscess. Patient has failed outpatient therapy and will need IV antibiotics. Patient be transferred to [facility] as there is a possibility he may require hand surgery with a hand specialist as that is not available at [facility]. Patient was given vancomycin in the ER. Patient accepted by Dr. Dia hospitalist at [facility] Lab Data 07/30/24 18:11 07/30/24 18:11 Labs/Radiology: Radiology Impressions Abdomen/Pelvis CT 07/30/24 15:28 IMPRESSION: 1. 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 There is mild stranding of the fat surrounding the colostomy in the ventral abdominal wall, decreased since June 04, 2024. Previously seen inflammation and free fluid in the lower abdomen and pelvis has resolved since June 04, 2024. 2. Bilateral tiny renal calculi with suspected 2 mm proximal right ureteral stone and very mild associated hydroureter. No significant hydronephrosis. 3. Mildly complex 2 cm cystic lesion in the left kidney, not significantly changed since June 01, 2024. Other small simple cysts are noted in the kidneys bilaterally.Benign Bosniak II renal cyst requiring no follow-up. (Reference: Hardy) 4. Tiny 3 mm nodule in the right middle lobe.For patients at low risk (minimal or absent history of smoking and of other known risk factors), no routine follow-up is indicated. For patients at high risk (history of smoking or of other known risk factors), consider optional CT Chest at 12 months. (Reference: Timmy) THIS REPORT CONTAINS FINDINGS THAT MAY BE CRITICAL TO PATIENT CARE. The findings were verbally communicated via telephone conference with HARINDER VALADEZ at 6:40 PM DEPARTMENT COORDINATOR on 07/30/2024. The findings were acknowledged and understood. COMMENTS: Consistent with the [employer]'s Incidental Findings Committee white paper (J Am Frida Radiol 2018): Any incidental renal lesion less than 1 cm or classified as too small to characterize, or any incidental cystic renal lesion characterized as simple-appearing, is likely benign. No follow-up imaging is recommended for these lesions per consensus recommendations based on imaging criteria. REFERENCES: 1. Timmy Aden, et al. Guidelines for Management of Incidental Pulmonary Nodules Detected on CT Images: From the Fleischner Society 2017. Radiology. 2017;284(1):228-243. 2. Hardy HUNTER, et al. Bosniak Classification of Cystic Renal Masses, Version 2019: An Update Proposal and Needs Assessment. Radiology. 2019;292(2):475-488. Laboratory Results WBC 14.63 10^3/uL (3.29-11.43) H 07/30/24 18:11 RBC 3.77 10^6/uL (3.85-5.65) L 07/30/24 18:11 Hgb 11.20 g/dL (11.27-16.99) L 07/30/24 18:11 Hct 33.9 % (37-53) L 07/30/24 18:11 MCV 89.9 fl (82-101) 07/30/24 18:11 MCH 29.7 pg (27-33) 07/30/24 18:11 MCHC 33.0 g/dL (30-55) 07/30/24 18:11 RDW 14.0 % (12.1-15.1) 07/30/24 18:11 Plt Count 251 10^3/cmm (157-399) 07/30/24 18:11 MPV 9.4 fL (7.4-10.4) 07/30/24 18:11 Neut % (Auto) 79.4 % 07/30/24 18:11 Lymph % (Auto) 9.0 % 07/30/24 18:11 [place] % (Auto) 8.4 % 07/30/24 18:11 Eos % (Auto) 2.7 % 07/30/24 18:11 Baso % (Auto) 0.2 % 07/30/24 18:11 Neut # (Auto) 11.61 10^3/uL (1.8-7.7) H 07/30/24 18:11 Lymph # (Auto) 1.3 10^3/uL (0.8-4.8) 07/30/24 18:11 [place] # (Auto) 1.2 10^3/uL (0.2-0.9) H 07/30/24 18:11 Eos # (Auto) 0.4 10^3/uL (0.0-0.8) 07/30/24 18:11 Baso # (Auto) 0.0 10^3/uL (0.0-0.1) 07/30/24 18:11 Nucleated RBC % (auto) 0 % 07/30/24 18:11 Nucleated RBCs # 0.0 /100WBC 07/30/24 18:11 Sodium 132 mmol/L (136-145) L 07/30/24 18:11 Potassium 3.9 mmol/L (3.5-5.1) 07/30/24 18:11 Chloride 98 mmol/L (98-107) 07/30/24 18:11 Carbon Dioxide 22 mmol/L (22-29) 07/30/24 18:11 Anion Gap 15.9 (5-19) 07/30/24 18:11 BUN 7 mg/dL (6-20) 07/30/24 18:11 Creatinine 0.6 mg/dL (0.7-1.2) L 07/30/24 18:11 GFR Calculation 149.2 mL/min (90-130) H 07/30/24 18:11 Glucose 111 mg/dL (65-115) 07/30/24 18:11 Calculated Osmolality 273 mOsm/kg (285-295) L 07/30/24 18:11 Calcium 8.8 mg/dL (8.5-10.5) 07/30/24 18:11 Total Bilirubin 0.6 mg/dL (0.15-1.2) 07/30/24 18:11 AST 11 U/L (0-40) 07/30/24 18:11 ALT 13 U/L (0-41) 07/30/24 18:11 Alkaline Phosphatase 79 U/L (40-130) 07/30/24 18:11 Total Protein 7.0 g/dL (6.6-8.7) 07/30/24 18:11 Albumin 3.7 g/dL (3.5-5.2) 07/30/24 18:11 Globulin 3.3 g/dL (1.3-4.6) 07/30/24 18:11 All radiology interpretation(s) finalized by discharge Discharge Plan Discharge Patient Disposition: Xfer Short-Term Hosp Clinical Impression: Abscess of finger of right hand, Failure of outpatient treatment Condition: Stable Referrals: Bessy Patterson NP [Primary Care Provider] - Coding Level of Care Code ED Customer Service Dispatcher for Elba Lowe
[2024-07-30] MEDS: fentaNYL 50 mcg/mL INJ 2mL IVP (16:59)
[2024-07-30] MEDS: vancomycin 1,500 MG/300 ML PIGGYBACK 200 MG IV (17:01)
[2024-07-30] MEDS: lidocaine 1% 10 ML INJ INJECTION (17:17)
[2024-07-30] MEDS: iohexol 350 mg/mL 500 mL Btl (per mL) IV (17:58)
[2024-07-30 18:16] LABS: Basophils % 0.2 %; Eosinophils # 0.4 10^3/uL (0.0-0.8); Eosinophils % 2.7 %; Hematocrit 33.9 % (37-53); Lymphocytes # 1.3 10^3/uL (0.8-4.8); Mean Corpuscular Hemoglobin 29.7 pg (27-33); Mean Corpuscular Volume 89.9 fl (82-101); Mean Platelet Volume 9.4 fL (7.4-10.4); Monocytes # 1.2 10^3/uL (0.2-0.9); Monocytes % 8.4 %; Neutrophils # 11.61 10^3/uL (1.8-7.7); Neutrophils % 79.4 %; Nucleated Red Blood Cells % 0 %; Platelet Count 251 10^3/cmm (157-399); Red Blood Count 3.77 10^6/uL (3.85-5.65); White Blood Count 14.63 10^3/uL (3.29-11.43)
[2024-07-30 18:35] LABS: Alanine Aminotransferase 13 U/L (0-41); Albumin Level 3.7 g/dL (3.5-5.2); Alkaline Phosphatase 79 U/L (40-130); Anion Gap 15.9 (5-19); Aspartate Amino Transferase 11 U/L (0-40); Blood Urea Nitrogen 7 mg/dL (6-20); Calcium 8.8 mg/dL (8.5-10.5); Carbon Dioxide 22 mmol/L (22-29); Chloride 98 mmol/L (98-107); Creatinine Clr Calc Pharmacy 183.3769; Globulin 3.3 g/dL (1.3-4.6); Glomerular Filtration Rate 149.2 mL/min (90-130); Glucose 111 mg/dL (65-115); Osmolality Calculated 273 mOsm/kg (285-295); Potassium 3.9 mmol/L (3.5-5.1); Sodium 132 mmol/L (136-145); Total Bilirubin 0.6 mg/dL (0.15-1.2)
[2024-07-30] MEDS: morphine 4 mg/mL SDV 1 mL IVP (18:45)
[2024-07-30] MEDS: HYDROcodone-acetaminophen 5-325 mg Tablet 1 TAB PO (22:37)
[2024-07-30] MEDS: morphine 4 mg/mL SDV 1 mL 2 MG IVP (22:37)
[2024-07-30] MEDS: HYDROmorphone 1 mg/mL INJ 1 mL IVP (23:53)
--- NOTE | 2024-07-30 23:59 | PC.NURSE ---
Report was given to [facility]. Patient was given pain meds prior to transfer.
[2024-07-31 00:06] VITALS: BP 167/102; PULSE 88; O2SAT 96
== END 2024-07-31 00:08 | disposition short-term general hospital (02) ==
PROVIDERS: Emergency Provider Student in an Organized Health Care Education/Training Program
DX: L02.511 Cutaneous abscess of right hand (principal); Z91.199 Patient's noncompliance with other medical treatment and regimen due to unspecified reason
CPT/HCPCS: 74177; 80053; 85025; 87070; 87075; 87077; 87186; 87205; 96374; 96375; 96376; 99285; J1171; J2270; J3010; J3370

== ENCOUNTER → 2024-08-16 14:08 | Outpatient (BNVA) | payer BC, MEDICAID, SELFPAY | PROVIDERS: Visit Provider Family Medicine | DX: I15.9 Secondary hypertension, unspecified (principal); K57.20 Diverticulitis of large intestine with perforation and abscess without bleeding; L02.511 Cutaneous abscess of right hand | CPT/HCPCS: 80053; 85025 ==

== ENCOUNTER → 2024-08-17 12:51 | Outpatient (BNVA) | payer BC, MEDICAID, SELFPAY | PROVIDERS: Visit Provider Student in an Organized Health Care Education/Training Program | DX: L02.511 Cutaneous abscess of right hand (principal); A49.02 Methicillin resistant Staphylococcus aureus infection, unspecified site; K57.20 Diverticulitis of large intestine with perforation and abscess without bleeding | CPT/HCPCS: 36415; 85651; 86140; 87040 ==

== ENCOUNTER 2024-08-18 14:42 | Outpatient (CLI) | payer BC, MEDICAID, SELFPAY ==
--- NOTE | 2024-08-18 14:52 | XR_ITS ---
WS: [id number] XR hand RT 2V [id number] REASON FOR EXAM: assess for osteomyelitis FINDINGS: Soft tissue swelling of the fifth finger. No underlying bone erosion or periosteal reaction. The remainder of the bone and joint structures of the right hand is unremarkable. XR/XR hand RT 2V [id number] IMPRESSION: Soft tissue swelling of the fifth finger without underlying bone or joint abnor mality.
== END 2024-08-18 14:43 | disposition home or self-care (01) ==
PROVIDERS: Visit Provider Internal Medicine
DX: L02.511 Cutaneous abscess of right hand (principal); R93.6 Abnormal findings on diagnostic imaging of limbs
CPT/HCPCS: 73120

== ENCOUNTER → 2024-08-23 15:51 | Outpatient (BNVA) | payer BC, MEDICAID, SELFPAY | PROVIDERS: Visit Provider Family Medicine | DX: R68.89 Other general symptoms and signs (principal); L02.511 Cutaneous abscess of right hand | CPT/HCPCS: 87400 ==

== ENCOUNTER 2024-08-24 07:05 | Oncology outpatient (recurring) (ONCR) | payer BC, MEDICAID, SELFPAY ==
--- NOTE | 2024-08-24 07:15 | MR_ITS ---
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 Lateral fifth metacarpal. TECHNIQUE: Axial T1 and T2 coronal T1 and STIR sagittal T2 coronal 3D FSPGR and multiplanar post gadolinium imaging was obtained with fat saturation technique. FINDINGS: Images are somewhat limited due to patient positioning and signal loss at the periphery of the images Diffuse soft tissue edema involving the lateral aspect of the hand with associated skin thickening and induration compatible with cellulitis. No drainable abscess or drainable fluid collection. Fatty T1 marrow signal appears preserved in the fifth metacarpal and fifth digits. Diffuse soft tissue enhanc ement involving the soft tissues of the fifth digits circumferentially. Small joint effusions. Small effusion in the fifth MCP joint. Diffuse infection with soft tissue edema involving the flexor compartment tendon sheath with palmar displacement of the tendon sheath. Suspicion for developing phlegmon along the flexor tendon sheath worse involving the proximal and middle phalanges. Diffuse associated soft tissue enhancement with palmar displacement of the tendon sheath. Reactive bone marrow edema and enhancement in the fifth phalanges but the fatty T1 marrow signal is preserved. MR/MR hand RT wo/w con [id number] IMPRESSION: 1. Diffuse enhancing cellulitis circumferentially involving the soft tissues a bout the distal fifth metacarpal extending along the proximal, mid, and distal fifth phalanges. 2. There is diffuse soft tissue thickening with edema and enhancement deep to the fifth digit flexor tendon sheath with palmar displacement of the tendon she ath compatible with deep soft tissue infection and suspicion for developing phl egmon in this area. No well-defined drainable fluid collections at this time. 3. No evidence of osteomyelitis. Fatty T1 bone marrow signal is preserved with reactive edema and enhancement involving the fifth metacarpal head and fifth p halanges. 4. Small joint effusions involving the fifth MCP joint and fifth IP joints. 5. Recommend hand surgery evaluation. Notified Rocio MD Meggan at 08/24/2024 4:11 PM.
[2024-08-24] MEDS: gadobenate dimeglumine 20 mL vial IV (07:54)
== END 2024-09-03 23:59 | disposition home or self-care (01) ==
LOC: RAD 07:06 → ONCMED 09:04
PROVIDERS: Visit Provider Student in an Organized Health Care Education/Training Program
DX: A49.02 Methicillin resistant Staphylococcus aureus infection, unspecified site (principal); L02.511 Cutaneous abscess of right hand; M25.441 Effusion, right hand; L03.113 Cellulitis of right upper limb
CPT/HCPCS: 73220

== ENCOUNTER → 2024-11-10 14:54 | Outpatient (BNVA) | payer BC, MEDICAID, SELFPAY | PROVIDERS: PCP Family Medicine; Visit Provider Student in an Organized Health Care Education/Training Program | DX: M24.541 Contracture, right hand (principal); L90.5 Scar conditions and fibrosis of skin; Z98.890 Other specified postprocedural states; L02.511 Cutaneous abscess of right hand | CPT/HCPCS: 73130 ==